=== PATIENT | male | born 1935 | race Caucasian/White ===

== ENCOUNTER 2019-12-03 15:21 | Emergency (ER) | payer OTHER ==
--- OUTSIDE RECORDS SUMMARY | 2019-12-03 15:33 | XMS REPORT | Clinical Summary ---
:1935 Author Organization [facility] Address [address] [place] [address] Care Team Providers Name Role Phone DAURTE Quezada Primary Care Provider Allergies No Known Allergies Medications Medication Sig Dispensed Refills Start Date End Date Status levothyroxine Take 50 mcg 0 Acti ve (SYNTHROID, by mouth. LEVOXYL) 50 mcg tablet losartan-hydrochlor Take 1 0 Active othiazide (HYZAAR) tablet by 100-25 mg per mouth. tablet escitalopram Take 20 mg 0 Active (LEXAPRO) 20 MG by mouth. tablet simvastatin (ZOCOR) Take 40 mg 0 Active 40 MG tablet by mouth. saw palmetto fruit Take by 0 A ctive 450 mg capsule mouth. loteprednol 0 11/12/2018 Active etabonate (LOTEMAX) 0.5 % drops,gel clopidogrel Take 75 mg 0 Discont inued (PLAVIX) 75 mg by mouth. 9 (Form ulary tablet change) cyanocobalamin, Take by 0 Disc ontinued vitamin B-12, 5,000 mouth. 9 (Formulary mcg change) tablet,disintegrati ng omega Take by 0 Discontinu ed 8-mpq-zqt-fish oil mouth. 9 ( Formulary 1,200 (144-216) mg c hange) capsule amLODIPine Take 2.5 mg 0 Discont inued (NORVASC) 2.5 mg by mouth 9 (Fo rmulary tablet daily. change) ibuprofen Take 200 mg 0 Disconti nued (ADVIL,MOTRIN) 200 by mouth 9 ( Formulary MG tablet every 6 change) (six) hours as needed for mild pain. Active Problems Problem Noted Date Heart murmur 02/03/2019 Aortic valve disorder 11/19/2017 Abdominal aortic aneurysm (AAA) without rupture 2017 Essential hypertension 11/19/2017 Encounters Date Type Specialty Care Team Description 10/26/2019 Travel 02/03/2019 Office Visit Cardiology Ambrocio Deluna MD [facility] (Primary Dx); Heart murmur; Aortic valve di sorder after 12/02/2018 Family History Relation Name Status Comments Father Mother Social History Tobacco Use Types Packs/Day Years Used Date Former Smoker Smokeless Tobacco: Never Used Alcohol Use Drinks/Week oz/Week Comments No Sex Assigned at Date Recorded Not on file Job Start Date Occupation Industry Not on file Not on file Not on file Travel History Travel Start Travel End No recent travel history available. Last Filed Vital Signs Vital Sign Reading Time Taken Comments Blood Pressure 143/68 02/03/2019 2:14 PM CDT Pulse 56 02/03/2019 2:14 PM CDT Temperature - - Respiratory Rate - - Oxygen Saturation - - Inhaled Oxygen Concentration - - Weight 82.6 kg (182 lb) 02/03/2019 2:14 PM CDT Height 170.2 cm (5' 7") 02/03/2019 2:14 PM CDT Body Mass Index 28.51 02/03/2019 2:14 PM CDT Plan of Treatment Date Type Specialty Care Team Description 02/02/2020 Office Visit Cardiology Ambrocio Deluna MD [address] [facility] [address] [place], [place] [address] [phone] Health Maintenance Due Date Last Done Comments SHINGLES VACCINES (#1) 09/16/1983 65+ PNEUMOCOCCAL VACCINE (1 of 2 - PCV13) 1998 INFLUENZA VACCINE 12/12/2019 Procedures Procedure Name Priority Date/Time Associated Diagnosis Comme nts TTE COMPLETE, WO Routine 02/09/2019 5:35 PM Essential Resu lts for this CONTRAST, W DOPPLER CDT hypertension procedure are in (07150) Aortic valve the results disorder section. ECG 12-LEAD Routine 02/03/2019 1:16 PM Heart murmur Results for this CDT procedure are i n the results section. after 12/02/2018 Results Echocardiogram complete w contrast and 3D if needed (02/09/2019 5:35 PM CDT) Specimen Narrative Performed At [facility] Echo cardiography Report Pat.Name: TYLOR RUIZ Pat.ID: [id number] .Date: 02/09/2019 Refer.MD: AMBROCIO DELUNA MD Exam Time: 2:21:00 PM Study Type:R outine Echo Height: 67in Weight: 182lb BSA: 1.94 m2 Ag e: 1935,83Y Sex: MALE BP: 143/68 HR: 50 bpm Sonogrphr: DANIELE Minor FASE Pat. Stat.:Outpatient Room: [place] Study Status:Final Echo Event ID:[id number] Order ID: [id number] Reason for Study:Aortic Stenosis History / Clinical:Unspecified HTN w/hea rt involve Procedures: 2D Echo, Colorflow Doppler Race: C SUMMARY: Mild aortic valve stenosis. FINDINGS: LV: LV size is normal. LV EF is normal. Overall wall motion is normal. Estimated EF is 60-64%. RV: RV size is normal. RV systo lic function is normal. LA: LA volume is moderately enl arged. RA: RA size is normal. AO: Aortic root diameter is nor mal. TOAN: No pericardial effusion. AV: Moderate thickening and jefry cification of AV leaflets. Mild aortic valve stenosis. MV: Mild mitral annular calcifi cation. PV: No structural PV abnormalit ies noted. TV: No structural TV abnormalit ies noted. A trace of tricuspid regurgitation Mcguire: Diastolic dysfunction Grade II (Moderate): Impaired relaxation with elevate d LV filling pressures. Other: Estimated PA systolic pressu re is 30-35 mmHg, assuming a mean RAP of 5 mmHg. MEASUREMENTS: 2D Parasternal [place] Ao An 1.7 cm LVPWd 0.9 cm Ao Rtd 3.5 cm Index 1.8 cm/m2 LA Ds 4.1 cm IVSd 1.3 cm RWT 0.4 LVIDd 4.6 cm Index 2.3 cm/m2 LV Mass 175.3 g (122-17 4) LVIDs 2.5 cm LVOT 2 cm LV%fs 45.1 % Left Ventricle LVM Index 90.4 g/m LA Sng Plane LA Area 23 cm (8.8-23.4) LA Vol 74.6 ml Index 38.4 ml/m2 LA LngAx 6.4 cm LVOT LVOT Area 3 cm DOPPLER AV Forward Flow AV pkVel 200.5 cm/s (100-170) AV AC/ET 0.1 AV mnVel 130.7 cm/s AV TVI 43.7 cm AV pkPG 16.1 mmHg AVpkAcRt 27211.4 cm/s AV Mean G 8.2 mmHg AV AC 29 msec (83-118) AV ET 335 msec Signed 02/10/2019 11:01 PM Sussy Waite M.D. Procedure Note Interface, Radiology Results In - 2018 11:01 PM CDT [facility] Echocardiography Report Pat.Name: TYLOR RUIZ Pat.I D: [id number] St.Date: 02/09/2019 Refer .MD: AMBROCIO DELUNA MD Exam Time: 2:21:00 PM Study Type:Routine Echo Height: 67in Weigh t: 182lb BSA: 1.94 m2 Age: 3 1935,83Y Sex: MALE BP: 143/68 HR: 50 bpm Sonogrphr: DANIELE Minor FASE Pat. Stat.:Outpatient Room: [place] Study Status:Final Echo Event ID:[id number] Order ID: [id number] Reason for Study:Aortic Stenosis History / Clinical:Unspecified HTN w/hea rt involve Procedures: 2D Echo, Colorflow Doppler Race: C SUMMARY: Mild aortic valve stenosis. FINDINGS: LV: LV size is normal. LV EF is no rmal. Overall wall motion is normal. Estimated EF is 60-64 %. RV: RV size is normal. RV systolic function is normal. LA: LA volume is moderately enlarg ed. RA: RA size is normal. AO: Aortic root diameter is normal . TOAN: No pericardial effusion. AV: Moderate thickening and calcif ication of AV leaflets. Mild aortic valve stenosis. MV: Mild mitral annular calcificat ion. PV: No structural PV abnormalities noted. TV: No structural TV abnormalities noted. A trace of tricuspid regurgitation Mcguire: Diastolic dysfunction Grade II (Moderate): Impaired relaxation with elevated LV f illing pressures. Other: Estimated PA systolic pressure is 30-35 mmHg, assuming a mean RAP of 5 mmHg. MEASUREMENTS: 2D Parasternal [place] Ao An 1.7 cm LVPW d 0.9 cm Ao Rtd 3.5 cm Inde x 1.8 cm/m2 LA Ds 4.1 cm IVSd 1.3 cm RWT 0.4 LVIDd 4.6 cm Inde x 2.3 cm/m2 LV Mass 175.3 g (122-174) LVIDs 2.5 cm LVOT 2 cm LV%fs 45.1 % Left Ventricle LVM Index 90.4 g/m LA Sng Plane LA Area 23 cm (8.8-23.4) L A Vol 74.6 ml Index 38.4 ml/m2 LA LngAx 6.4 cm LVOT LVOT Area 3 cm DOPPLER AV Forward Flow AV pkVel 200.5 cm/s (100-170) AV AC/ET 0.1 AV mnVel 130.7 cm/s AV T 43.7 cm AV pkPG 16.1 mmHg AVpk AcRt 88309.4 cm/s AV Mean G 8.2 mmHg AV A C 29 msec (83-118) AV ET 335 msec Signed 02/10/2019 11:01 PM Sussy Waite M.D. Performing Organization Address [facility] Phone Number [facility] [address] [place] [address] ECG 12 lead (02/03/2019 1:16 PM CDT) Pathologist Sig nature Ventricular rate 56 [facility] Atrial rate 56 [facility] ME interval 184 [facility] QRSD interval 162 [facility] QT interval 474 [facility] QTC interval 457 [facility] P axis 1 65 [facility] QRS axis 1 269 [facility] T wave axis 59 [facility] EKG impression Sinus bradycardia-Right [facility] bundle branch block-Abnormal ECG-In automated comparison with ECG of 19-NOV-2017 13:42,-T wave inversion now evident in Anterior leads- Specimen Narrative Performed At This result has an attachment that is no t available. Performing Organization Address [facility] Phone Number [facility] [address] [place] [address] after 12/02/2018 Insurance Payer Benefit Plan / Subscriber ID Effective Dates Phone Addre ss Type Group MEDICARE MEDICARE PART A xxxxxxxxxxx 1998-Present [facility] [place] [place] Medicare AND B Advance Directives For more information, please contact: [phone] Type Date Recorded Patient Surveillance Investigator Explanati on Advance Directives, Living Will and Medical Power of Office Support Clerk
--- OUTSIDE RECORDS SUMMARY | 2019-12-03 15:35 | XMS REPORT | Clinical Summary ---
:1935 Author Organization [facility] Address [address] [place] [address] Care Team Providers Name Role Phone Unavailable Primary Care Provider Unavailable Allergies No Known Allergies Medications Medication Sig Dispensed Refills Start End Date Status Date levothyroxine Take 25 mcg 0 Acti ve (SYNTHROID, LEVOTHROID) by mouth 25 MCG tablet Every morning on an empty stomach. escitalopram oxalate Take 20 mg by 0 Active (LEXAPRO) 20 MG tablet mouth daily. losartan (COZAAR) 100 MG Take 100 mg 0 Active tablet by mouth daily. clopidogreL (PLAVIX) 75 Take 75 mg by 0 Active mg tablet mouth daily. amLODIPine (NORVASC) 10 Take 1 tablet 90 tablet 0 Active MG tablet (10 mg total) 0 21 by mouth daily. albuterol HFA (VENTOLIN Inhale 1 puff 1 Inhaler 3 Active HFA) 90 mcg/actuation by mouth via 0 21 inhaler inhaler every 6 (six) hours as needed for Wheezing. fluticasone Inhale 2 1 Inhaler 12 11/05/19 Active propion-salmeteroL puffs by 0 21 (ADVAIR HFA) 45-21 mouth via mcg/actuation inhaler inhaler 2 (two) times daily. sodium chloride 1 gram Take 1 tablet 60 tablet 0 Active tablet (1 g total) 0 21 by mouth 2 (two) times daily with breakfast and dinner. hydroCHLOROthiazide Take 25 mg by 0 Discontinued (HYDRODIURIL) 25 MG mouth daily. 20 tablet traMADoL (ULTRAM) 50 mg Take 1 tablet 30 tablet 0 tablet (50 mg total) 0 20 by mouth every 6 (six) hours as needed for up to 10 days. Max Daily Amount: 200 mg HYDROcodone-acetaminophe Take 1 tablet 30 tablet 0 0 11/29/19 n (NORCO 10-325) 10-325 by mouth 0 20 mg per every 6 (six) tabletIndications: pain, hours as cancer pain needed for Pain for up to 10 days. 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 Encounters Date Type Specialty Care Team Description 11/19/2019 Orders Only Internal Medicine Pierre Mcgarry MD 11/03/2019 Anesthesia Event Hollis Celestin MD 11/03/2019 Surgery Keo Hodges THORACENTESIS MD Adrian 11/02/2019 Orders Only General Internal Medicine 10/31/2019 Travel 10/30/2019 - Hospital Encounter General Internal Athreya, Lung cancer metastatic to bone (HCC); 11/05/2019 Medicine Alonso Pneumonia due t o infectious organism, unspecified laterality, unspecified part of lung; MD Linh Leukocytosis, unspecified type; Carlee, Yajimmie Hyponatremia ; D 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); Pierre Mcgarry, Adenocarcino ma of lung, stage 4, unspecified laterality (HCC) MD Floyd, Sabiha Ballard MD after 12/02/2018 Immunizations Name Dates Previously Given Next Due Pneumococcal Conjugate (Prevnar) 13-Valent 11/01/2019 Family History Medical History Relation Name Comments Prostate cancer Father Liver cancer Mother Relation Name Status Comments Father Mother Social History Tobacco Use Types Packs/Day Years Used Date Former Smoker Quit: 10/29/18 70 Smokeless Tobacco: Never Used Alcohol Use Drinks/Week oz/Week Comments No Alcohol Habits Answer Date Recorded How often do you have a drink containing alcohol? Never 10/30/2019 How many drinks containing alcohol do you have on a typical Not asked day when you are drinking? How often do you have six or more drinks on one occasion? No t asked Sex Assigned at Date Recorded Not on file Job Start Date Occupation Industry Not on file Not on file Not on file Travel History Travel Start Travel End No recent travel history available. Last Filed Vital Signs Vital Sign Reading Time Taken Blood Pressure 196/81 11/05/2019 3:14 PM CDT Pulse 75 11/05/2019 3:14 PM CDT Temperature 36.5 C (97.7 F) 11/05/2019 3:14 PM CDT Respiratory Rate 18 11/05/2019 3:14 PM CDT Oxygen Saturation 93% 11/05/2019 3:14 PM CDT Inhaled Oxygen Concentration 21% 11/05/2019 7:46 AM CDT Weight 76.1 kg (167 lb 11.2 oz) 10/30/2019 9:4 1 PM CDT Height 170.2 cm (5' 7") 10/30/2019 9:41 PM CDT Body Mass Index 26.27 10/30/2019 9:41 PM CDT Plan of Treatment Health Maintenance Due Date Last Done Comments MEDICARE ANNUAL WELLNESS (YEAR 2 or 09/12/1999 FIRST YEAR if no IPPE) PNEUMOCOCCAL 65+ HIGH/HIGHEST RISK (2 12/27/2019 11/01/2019 of 2 - PPSV23) INFLUENZA VACCINE (#1) 2020 04/09/2016, 03/02/2015, 03/03/2012 Procedures Procedure Name Priority Date/Time Associated Comments Diagnosis RHYTHM STRIP - SCAN 11/12/2019 9:43 AM CDT RHYTHM STRIP - SCAN 11/12/2019 9:42 AM CDT RHYTHM STRIP - SCAN 11/06/2019 10:42 AM CDT TRANSFUSION SERVICE 11/05/2019 6:03 REPORT - SCAN PM CDT CBC W/PLT COUNT & AUTO Routine 11/05/2019 5:25 R esults for this DIFFERENTIAL AM CDT procedure are i n the results section. PHOSPHORUS Routine 11/05/2019 5:25 Results for this AM CDT procedure are i n the results section. MAGNESIUM Routine 11/05/2019 5:25 Results for this AM CDT procedure are i n the results section. CALCIUM, IONIZED Routine 11/05/2019 5:25 Results for this AM CDT procedure are i n the results section. B-TYPE NATRIURETIC Routine 11/05/2019 5:25 Resul ts for this FACTOR (BNP) AM CDT procedure are i n the results section. CBC W/PLT COUNT & AUTO Routine 11/05/2019 5:25 R esults for this DIFFERENTIAL AM CDT procedure are i n the results section. BASIC METABOLIC PANEL Routine 11/05/2019 5:25 Re sults for this (7) AM CDT procedure are i n the results section. ABORH, MANUAL STAT 11/04/2019 8:56 Results fo r this AM CDT procedure are i n the results section. CBC W/PLT COUNT & AUTO Routine 11/04/2019 5:57 R esults for this DIFFERENTIAL AM CDT procedure are i n the results section. TYPE AND SCREEN, Routine 11/04/2019 5:57 Results for this AUTOMATED AM CDT procedure are i n the results section. PHOSPHORUS Routine 11/04/2019 5:57 Results for this AM CDT procedure are i n the results section. MAGNESIUM Routine 11/04/2019 5:57 Results for this AM CDT procedure are i n the results section. COMPREHENSIVE Routine 11/04/2019 5:57 Results fo r this METABOLIC PANEL AM CDT procedure ar e in the results section. CALCIUM, IONIZED Routine 11/04/2019 5:57 Results for this AM CDT procedure are i n the results section. CBC W/PLT COUNT & AUTO Routine 11/04/2019 5:57 R esults for this DIFFERENTIAL AM CDT procedure are i n the results section. MR CERVICAL SPINE WITH Routine 11/03/2019 9:25 R esults for this & WITHOUT IV CONTRAST PM CDT proced ure are in the results section. MR BRAIN WITH IV Routine 11/03/2019 9:25 Results for this CONTRAST PM CDT procedure are i n the results section. REPORT OF PROCEDURE - 11/03/2019 2:51 ENDOSCOPY URL PM CDT REPORT OF PROCEDURE - 11/03/2019 2:49 ENDOSCOPY URL PM CDT EBUS FNA REQUEST Routine 11/03/2019 2:24 Results for this PM CDT procedure are i n the results section. FINE NEEDLE ASPIRATE AP Routine 11/03/2019 2:24 Res ults for this BY EBUS PM CDT procedure are i n the results section. EBUS FNA REQUEST Routine 11/03/2019 2:12 Results for this PM CDT procedure are i n the results section. FINE NEEDLE ASPIRATE AP Routine 11/03/2019 2:12 Res ults for this BY EBUS PM CDT procedure are i n the results section. EBUS FNA REQUEST Routine 11/03/2019 2:04 Results for this PM CDT procedure are i n the results section. FINE NEEDLE ASPIRATE AP Routine 11/03/2019 2:04 Res ults for this BY EBUS PM CDT procedure are i n the results section. LACTATE DEHYDROGENASE STAT 11/03/2019 2:03 Re sults for this (LDH) PM CDT procedure are i n the results section. EBUS FNA REQUEST Routine 11/03/2019 2:01 Results for this PM CDT procedure are i n the results section. FINE NEEDLE ASPIRATE AP Routine 11/03/2019 2:01 Res ults for this BY EBUS PM CDT procedure are i n the results section. EBUS FNA REQUEST Routine 11/03/2019 1:59 Results for this PM CDT procedure are i n the results section. FINE NEEDLE ASPIRATE AP Routine 11/03/2019 1:59 Res ults for this BY EBUS PM CDT procedure are i n the results section. AFB CULTURE + SMEAR Routine 11/03/2019 1:40 (NON-SPUTUM) PM CDT BODY FLUID CULTURE + Routine 11/03/2019 1:40 Res ults for this GRAM STAIN PM CDT procedure are i n the results section. FUNGUS CULTURE + Routine 11/03/2019 1:40 SMEAR PM CDT PROTEIN, TOTAL, Routine 11/03/2019 1:40 Results for this PLEURAL FLUID PM CDT procedure are in the results section. LACTATE DEHYDROGENASE Routine 11/03/2019 1:40 Re sults for this (LD), PLEURAL FLUID PM CDT procedur e are in the results section. GLUCOSE PLEURAL FLUID Routine 11/03/2019 1:40 Re sults for this PM CDT procedure are i n the results section. ALBUMIN PLEURAL FLUID Routine 11/03/2019 1:40 Re sults for this PM CDT procedure are i n the results section. BODY FLUID CRYSTALS AP Routine 11/03/2019 1:40 Resu lts for this PM CDT procedure are i n the results section. BODY FLUID CELL COUNT Routine 11/03/2019 1:40 Re sults for this WITH DIFFERENTIAL PM CDT procedure are in the results section. CYTOLOGY REQUEST Routine 11/03/2019 1:39 Results for this PM CDT procedure are i n the results section. CYTOLOGY AP Routine 11/03/2019 1:39 Results for this PM CDT procedure are i n the results section. BRONCHOSCOPY,ENDOBRONC 11/03/2019 12:00 Lung mass HIAL ULTRASOUND (EBUS) PM CDT TRANSTRACH/ TRANSBRONCH SAMPLING THORACENTESIS 11/03/2019 12:00 Lung mass PM CDT CBC W/PLT COUNT & AUTO Routine 11/03/2019 3:48 R esults for this DIFFERENTIAL AM CDT procedure are i n the results section. CBC W/PLT COUNT & AUTO Routine 11/03/2019 3:48 R esults for this DIFFERENTIAL AM CDT procedure are i n the results section. APTT STAT 11/03/2019 3:47 Results for this AM CDT procedure are i n the results section. PROTHROMBIN TIME/INR STAT 11/03/2019 3:47 Res ults for this AM CDT procedure are i n the results section. BASIC METABOLIC PANEL Routine 11/03/2019 3:47 Re sults for this (7) AM CDT procedure are i n the results section. ECG 12-LEAD Routine 11/02/2019 8:26 AM CDT Procedure Note - Interface, External Ris In - 11/02/2019 9:26 AM CDT Ventricular Rate 68 BPM Atrial Rate 68 BPM P-R Interval 202 ms QRS Duration 166 ms Q-T Interval 452 ms QTC Calculation(Bazett) 480 ms P Dixon 79 degrees R Dixon -65 degrees T Dixon 24 degrees Undetermined rhythm Left axis deviation Right bundle branch block Abnormal ECG When compared with ECG of 08:26, Current undetermined rhythm precludes rhythm comparison, needs review ECG 12-LEAD Routine 11/02/2019 8:26 AM CDT Resu lts for this procedure are in the results section . ECG 12-LEAD Routine 11/02/2019 8:26 AM CDT Procedure Note - Interface, External Ris In - 11/02/2019 9:25 AM CDT Ventricular Rate 68 BPM Atrial Rate 68 BPM P-R Interval 196 ms QRS Duration 170 ms Q-T Interval 454 ms QTC Calculation(Bazett) 482 ms P Dixon 118 degrees R Dixon -64 degrees T Dixon 28 degrees Normal sinus rhythm Left axis deviation Right bundle branch block Abnormal ECG No previous ECGs available ECG 12-LEAD Routine 11/02/2019 8:26 AM CDT Resu lts for this procedure are i n the results section . CBC (HEMOGRAM ONLY) Routine 11/02/2019 5:25 AM CDT Results for this procedure are i n the results section . MAGNESIUM Routine 11/02/2019 5:25 AM CDT Resu lts for this procedure are i n the results section . BASIC METABOLIC PANEL (7) Routine 11/02/2019 5:25 AM CDT Results for this procedure are i n the results section . SPUTUM CULTURE + GRAM STAIN Routine 11/01/2019 2:21 PM CDT Results for this procedure are i n the results section . SODIUM Routine 11/01/2019 1:23 PM CDT Resu lts for this procedure are i n the results section . TSH/FREE T4 IF INDICATED Routine 11/01/2019 5:11 AM CDT Results for this procedure are i n the results section . CORTISOL Routine 11/01/2019 5:11 AM CDT Resu lts for this procedure are i n the results section . URIC ACID Routine 11/01/2019 5:11 AM CDT Resu lts for this procedure are i n the results section . B-TYPE NATRIURETIC FACTOR Routine 11/01/2019 5:11 AM CDT Results for this (BNP) procedure are i n the results section . CBC (HEMOGRAM ONLY) Routine 11/01/2019 5:11 AM CDT Results for this procedure are i n the results section . MAGNESIUM Routine 11/01/2019 5:11 AM CDT Resu lts for this procedure are i n the results section . BASIC METABOLIC PANEL (7) Routine 11/01/2019 5:11 AM CDT Results for this procedure are i n the results section . CT ABDOMEN/PELVIS WITH IV Routine 10/31/2019 7:32 PM CDT Results for this CONTRAST procedure are i n the results section . MR BRAIN WITHOUT IV Routine 10/31/2019 5:46 PM CDT Results for this CONTRAST procedure are i n the results section . URINALYSIS MICROSCOPIC Routine 10/31/2019 4:11 PM CDT Results for this procedure are i n the results section . SODIUM, RANDOM URINE Routine 10/31/2019 4:11 PM CDT Results for this procedure are i n the results section . OSMOLALITY, URINE Routine 10/31/2019 4:11 PM CDT Results for this procedure are i n the results section . URINALYSIS WITH MICROSCOPIC Routine 10/31/2019 4:11 PM CDT Results for this IF INDICATED procedure are i n the results section . SARS-COV2/RT-PCR ([facility] & Routine 10/31/2019 5:30 AM CDT Results for this REF LABS) procedure are i n the results section . CBC W/PLT COUNT & AUTO Routine 10/31/2019 5:27 AM CDT Results for this DIFFERENTIAL procedure are i n the results section . OSMOLALITY, SERUM Routine 10/31/2019 5:27 AM CDT Results for this procedure are i n the results section . CBC (HEMOGRAM ONLY) Routine 10/31/2019 5:27 AM CDT Results for this procedure are i n the results section . MAGNESIUM Routine 10/31/2019 5:27 AM CDT Resu lts for this procedure are i n the results section . PROTHROMBIN TIME/INR Routine 10/31/2019 5:27 AM CDT Results for this procedure are i n the results section . CBC W/PLT COUNT & AUTO Routine 10/31/2019 5:27 AM CDT Results for this DIFFERENTIAL procedure are i n the results section . BASIC METABOLIC PANEL (7) Routine 10/31/2019 5:27 AM CDT Results for this procedure are i n the results section . after 12/02/2018 Results RHYTHM STRIP - SCAN (11/12/2019 9:43 AM CDT)Only the most recent of3 results within the time period is included. Narrative Performed At This result has an attachment that is no t available. TRANSFUSION SERVICE REPORT - SCAN (11/05/2019 6:03 PM CDT) Narrative Performed At This result has an attachment that is no t available. Calcium, Ionized (11/05/2019 5:25 AM CDT)Only the most recent of2 resultswithin the time period is included. Calcium, Ion 1.07 (L) 1.12 - 1.27 mmol/L [facility] pH, Blood 7.45 [facility] Specimen Blood Performing Organization Address City/State/Zipcode Phone Number [facility] [address] [place] [address] CENTER CBC with platelet count + automated diff (11/05/2019 5:25 AM CDT)Only the most recent of4 resultswithin the time period is included. WBC 8.7 3.5 - 10.5 K/L [facility] RBC 3.71 (L) 4.63 - 6.08 M/L [facility] Hemoglobin 10.5 (L) 13.7 - 17.5 GM/DL [facility] Hematocrit 32.4 (L) 40.1 - 51.0 % [facility] MCV 87.3 79.0 - 92.2 fL [facility] HE [facility] MCH 28.3 25.7 - 32.2 pg [facility] MCHC 32.4 32.3 - 36.5 GM/DL [facility] RDW 13.5 11.6 - 14.4 % [facility] Platelets 185 150 - 450 K/CU MM [facility] MPV 8.9 (L) 9.4 - 12.4 fL [facility] nRBC 0 0 - 0 /100 WBC [facility] % Neutros 71 % [facility] % Lymphs 17 % [facility] % Monos 9 % [facility] % Eos 2 % [facility] % Baso 1 % [facility] # Neutros 6.21 (H) 1.78 - 5.38 K/L [facility] # Lymphs 1.47 1.32 - 3.57 K/L [facility] # Monos 0.78 0.30 - 0.82 K/L [facility] # Eos 0.18 0.04 - 0.54 K/L [facility] # Baso 0.04 0.01 - 0.08 K/L [facility] Immature Granulocytes-Relative 0 0 - 1 % C [facility] Specimen Blood Performing Organization Address City/State/Zipcode Phone Number [facility] [address] [place] [address] CENTER Phosphorus (11/05/2019 5:25 AM CDT)Only the most recent of2 resultswithin the time period is included. Phosphorus 2.5 2.3 - 4.7 mg/dL [facility] Specimen Blood Narrative Performed At Admissions Manager ID - LESLI Malone [facility] Performing Organization Address [facility]/Zipcode Phone Number [address] [address] CENTER B-type Natriuretic Factor (BNP) (11/05/2019 5:25 AM CDT)Only the most recent of 2 resultswithin the time period is included. BNP 31 0 - 100 pg/mL [facility] Specimen Blood Narrative Performed At Admissions Manager ID - LESLI Malone [facility] Performing Organization Address [facility] Phone Number [address] [address] CENTER Magnesium (11/05/2019 5:25 AM CDT)Only the most recent of5 resultswithin the time period is included. Magnesium 2.0 1.6 - 2.6 mg/dL [facility] Specimen Blood Narrative Performed At Admissions Manager ID - LESLI Malone [facility] Performing Organization Address City/[facility] Cent[facility]ode Phone Number [address] [address] COS COB Basic Metabolic Panel (11/05/2019 5:25 AM CDT)Only the most recent of5 results within the time period is included. Sodium 131 (L) 136 - 145 meq/L [facility] Potassium 4.0 3.5 - 5.1 meq/L [facility] Chloride 97 (L) 98 - 107 meq/L [facility] CO2 27 22 - 29 meq/L [facility] BUN 6 (L) 7 - 21 mg/dL [facility] Creatinine 0.67 0.57 - 1.25 mg/dL [facility] Glucose 83 70 - 105 mg/dL [facility] Calcium 8.6 8.4 - 10.2 mg/dL [facility] EGFR 112Comment: ESTIMATED GFR IS mL/min/1.73 sq m [facility] NOT ACCURATE CREATININE MS DICAL COS COB CLEARANCE IN PREDICTING GLOMERULAR FILTRATION RATE. ESTIMATED GFR IS NOT APPLICABLE FOR DIALYSIS PATIENTS. Specimen Blood Narrative Performed At Admissions Manager ID - PIAYA L [facility] CENTER Performing Organization Address City/[facility] Centercode Phone Number [address] [address] CENTER ABORH, manual (11/04/2019 8:56 AM CDT) ABO Grouping A [facility] Rh Factor NEG [facility] Specimen Blood Performing Organization Address City/[facility]/Zipcode Phone Number [address] [address] Type and screen, automated (11/04/2019 5:57 AM CDT) ABO/RH AUTOMATED (BEAKER) A NEGATIVE [facility] Ab Scrn NEGATIVE [facility] Specimen Blood Performing Organization Address City/[facility]/Zipcode Phone Number [address] [address] Comprehensive metabolic panel (11/04/2019 5:57 AM CDT) Protein, Total 6.6 6.0 - 8.3 gm/dL [facility] Albumin 3.3 (L) 3.5 - 5.0 g/dL [facility] Alkaline Phosphatase 94 40 - 150 U/L [facility] Total Bilirubin 0.5 0.2 - 1.2 mg/dL [facility] Sodium 129 (L) 136 - 145 meq/L [facility] Potassium 3.5 3.5 - 5.1 meq/L [facility] Chloride 97 (L) 98 - 107 meq/L [facility] CO2 23 22 - 29 meq/L [facility] BUN 9 7 - 21 mg/dL [facility] Creatinine 0.68 0.57 - 1.25 mg/dL [facility] Glucose 85 70 - 105 mg/dL [facility] Calcium 8.1 (L) 8.4 - 10.2 mg/dL [facility] AST 16 5 - 34 U/L [facility] ALT 9 6 - 55 U/L [facility] EGFR 111Comment: ESTIMATED mL/min/1.73 sq m [facility] GFR IS NOT ACCURATE [facility] CREATININE CLEARANCE IN PREDICTING GLOMERULAR FILTRATION RATE. ESTIMATED GFR IS NOT APPLICABLE FOR DIALYSIS PATIENTS. Specimen Blood Narrative Performed At Admissions Manager ID - JERSON B [facility] CENTER Performing Organization Address City/State/Zipcode Phone Number [facility] [address] [place] [address] CENTER MR cervical spine without & with IV contrast (11/03/2019 9:25 PM CDT) Specimen Narrative Performed At FINAL REPORT [employer] MR, SPINE, CERVICAL, WITH \\T\\ WITHOUT CO NTRAST INDICATION: Neck pain, abnormal neuro ex am TECHNIQUE: Multiplanar, multisequence MR imaging of the cervical spine was performed with and without int ravenous contrast. COMPARISON: None. FINDINGS: Cord: Grossly preserved caliber. Focal h yperintensity on T2-weighted images at the C5 level. Osseous structures: Normal height and si gnal intensity of the cervical vertebrae. There is grade 1 ret rolisthesis of C5 on C6. Degenerative facet changes are present a t all levels. The craniocervical junction is normal. No ab normal postcontrast enhancement. Discs: Disc desiccation is present at mu ltiple levels. Findings by level: C2/C3: Severe left foraminal stenosis. T he right neural foramen is patent. Mild canal narrowing. C3/C4: Degenerative disc disease creatin g moderate canal narrowing. Moderate bilateral foraminal stenosis. C4/C5: Asymmetric endplate changes in th e right paracentral region. Moderate left foraminal stenosis. C5/C6: Moderate canal narrowing. Severe bilateral foraminal stenosis. C6/C7: No canal or foraminal narrowing. C7/T1: No canal or foraminal narrowing. Soft tissues: Paraspinal soft tissues ar e unremarkable. IMPRESSION: Focal signal abnormality at the C5 verte bral body concerning for early myelopathic change. Degenerative changes throughout the cerv ical spine. Severe left foraminal stenosis is present at C2-3. Severe bilateral foraminal stenosis is p resent at C5-6 where there is grade 1 retrolisthesis of C5 on C6. Signed: JR Iverson Robert MD Report Verified Date/Time:11/03/2019 22:26:01 Reading Location: [facility] [address] [place] [address] Room Procedure Note Interface, External Ris In - 11/03/2019 10:29 PM CDT FINAL REPORT MR, SPINE, CERVICAL, WITH \\T\\ WITHOUT CO NTRAST INDICATION: Neck pain, abnormal neuro ex am TECHNIQUE: Multiplanar, multisequence MR imaging of the cervical spine was performed with and without int ravenous contrast. COMPARISON: None. FINDINGS: Cord: Grossly preserved caliber. Focal h yperintensity on T2-weighted images at the C5 level. Osseous structures: Normal height and si gnal intensity of the cervical vertebrae. There is grade 1 ret rolisthesis of C5 on C6. Degenerative facet changes are present a t all levels. The craniocervical junction is normal. No ab normal postcontrast enhancement. Discs: Disc desiccation is present at mu ltiple levels. Findings by level: C2/C3: Severe left foraminal stenosis. T he right neural foramen is patent. Mild canal narrowing. C3/C4: Degenerative disc disease creatin g moderate canal narrowing. Moderate bilateral foraminal stenosis. C4/C5: Asymmetric endplate changes in th e right paracentral region. Moderate left foraminal stenosis. C5/C6: Moderate canal narrowing. Severe bilateral foraminal stenosis. C6/C7: No canal or foraminal narrowing. C7/T1: No canal or foraminal narrowing. Soft tissues: Paraspinal soft tissues ar e unremarkable. IMPRESSION: Focal signal abnormality at the C5 verte bral body concerning for early myelopathic change. Degenerative changes throughout the cerv ical spine. Severe left foraminal stenosis is present at C2-3. Severe bilateral foraminal stenosis is p resent at C5-6 where there is grade 1 retrolisthesis of C5 on C6. Signed: JR Iverson Robert MD Report Verified Date/Time: 11/03/2019 2 2:26:01 Reading Location: [address] Performing Organization Address City/State/Zipcode Phone Number Exogenesis MR brain with IV contrast (11/03/2019 9:25 PM CDT) Specimen Narrative Performed At FINAL REPORT Exogenesis MR, BRAIN WITH IV CONTRAST INDICATION: Headache, acute, normal neur o exam TECHNIQUE: Multiplanar, multisequence MR imaging of the brain was obtained before and after uneventful adm inistration of gadolinium contrast. COMPARISON: October 31, 2019 FINDINGS: Limited by motion artifact. In comparison to the prior examination, and in the presence of postcontrast imaging, no metastatic dise ase is identified in the brain parenchyma. There is no midline sh ift or hydrocephalus. IMPRESSION: No abnormal postcontrast enhancement is identified. Signed: JR Iverson Robert MD Report Verified Date/Time:11/03/2019 21:26:45 Reading Location: [address] Room Procedure Note Interface, External Ris In - 11/03/2019 9:29 PM CDT FINAL REPORT MR, BRAIN WITH IV CONTRAST INDICATION: Headache, acute, normal neur o exam TECHNIQUE: Multiplanar, multisequence MR imaging of the brain was obtained before and after uneventful adm inistration of gadolinium contrast. COMPARISON: October 31, 2019 FINDINGS: Limited by motion artifact. In comparison to the prior examination, and in the presence of postcontrast imaging, no metastatic dise ase is identified in the brain parenchyma. There is no midline sh ift or hydrocephalus. IMPRESSION: No abnormal postcontrast enhancement is identified. Signed: JR Iverson Robert MD Report Verified Date/Time: 11/03/2019 2 1:26:45 Reading Location: [address] Performing Organization Address City/[facility] Centercode Phone Number GE RIS REPORT OF PROCEDURE - ENDOSCOPY URL (11/03/2019 2:51 PM CDT) Narrative Performed At This result has an attachment that is no t available. REPORT OF PROCEDURE - ENDOSCOPY URL (11/03/2019 2:49 PM CDT) Narrative Performed At This result has an attachment that is no t available. EBUS FNA REQUEST (11/03/2019 2:24 PM CDT)Only the most recent of5 resultswithin the time period is included. Cytology See Separate Report [facility] Specimen EBUS Fine Needle Aspirate - Lymph Node, Lower Paratracheal, Left, Station 4L Performing Organization Address City/[facility] Centercomn Phone Number [address] [address] CENTER Fine Needle Aspiration by EBUS (11/03/2019 2:24 PM CDT)Only the most recent of5 resultswithin the time period is included. Case Report Medical Cytology Report Case: [id number] [facility] Authorizing Provider:Keo Rao MDCollected: 11/03/2019 02:24 PM [facility] Ordering Location: [facility] PERIOPERATIVE Received:11/03/2019 04:00 PM SERVICES Pathologist: Barry Metzger MD Specimen:Lymph Node, Lower Paratracheal, Left, Station 4L DIAGNOSIS LYMPH NODE, LOWER PARATRACHE AL, LEFT, STATION 4L EBUS FNA BY CLINICIAN (CYTOSPINS AND CELL BLOCK OF ASPIRATE): [facility] - POSITIVE FOR MALIGNANCY [facility] - POORLY DIFFERENTIATED ADENOCARCINOMA Signing Pathologist Direct Phone Line: COMMENT Based upon the immunohistoch emical findings on [id number], this is a primary lung adenocarcinoma. [facility] Please see cytopathology cases [id number], [id number], 1 556, 1557 and 1561 [facility] CPT Code(s) 99711, 48441 [facility] CLINICAL DATA Right pleural effusion, [facility] recently discovered lung cancer [facility] with suspected metastasis to bone SPECIMEN SOURCE LYMPH NODE, LOWER PARATRACHEAL, [facility] LEFT, STATION 4L EBUS FNA [facility] GROSS DESCRIPTION 35 mls in cytorich red; 2 cytospins, cell bloc k [facility] Collected: [id number] [facility] Received: [id number] SPECIAL STUDIES The interpretation of this c ase included the use of immunohistochemistry or special stains. [facility] Control Slides Examined: In -house known positive controls were evaluated along with the test tissue. These control slides run alongside of the patients sample show appropriate staining. Internal posit vijay and negative controls when available are sue luated Immunohistochemistry technic al testing was performed at [facility], Pathology Laboratory where it was developed and its performance characteristics were determined. It has not be en cleared or approved by [facility] U.S. Food and Drug Administration. The FDA has determined that such clearance or approval is not necessary. The test is used for clinical purposes. It should not be regarde d as investigational or for research. This laboratory is certified under the Clinical Laboratory Improvement Amendments of 1988 (CLIA-88) as qualified to perform high complexity clinical laboratory testing. Gross assessment was [facility] performed at Center, Department of [facility] Pathology, [address] [place] [address], [place] [address], Technical component was [facility] performed at [place], Department of [facility] MEDICA [facility] Pathology, [address] [place] [address], Professional component [facility] was performed at [place], Department of [facility] MEDIC AL [facility] [place] Pathology, [address] [place] [address], [place] [address], Specimen EBUS Fine Needle Aspirate - Lymph Node, Lower Paratracheal, Left, Station 4L Narrative Performed At This result has an attachment that is no t available. Performing Organization Address [facility]/Zipcode Phone Number [address] [address] [place] Lactate dehydrogenase (LDH) (11/03/2019 2:03 PM CDT) LDH 175 125 - 220 U/L [facility] Specimen Blood Narrative Performed At Admissions Manager ID - ANDREA Jin [facility] Performing Organization Address City/[facility]/Zipcode Phone Number [address] [address] [place] Body fluid culture + gram stain (11/03/2019 1:40 PM CDT) Result No growth [facility] Gram Stain Result <1+ WBCs [facility] Gram Stain Result No epithelial cells [facility] Gram Stain Result No organisms seen [facility] Specimen Body Fluid Performing Organization Address [facility] Centercode Phone Number [address] [address] [place] Protein, Total, Pleural Fluid (11/03/2019 1:40 PM CDT) PROTEIN, TOTAL, PLEURAL 4.5 See Note: g/dL [facility] Comment: INCORPORATED Reference Range: TRANSUDATE: < OR = 3.0 EXUDATE:>3.0 Specimen Body Fluid Narrative Performed At Performing Lab [facility] EZ [facility] [address] [address] [place] [address] Jefe Gtz MD, PhD, PRUDENCIO Performing Organization Address [facility] Phone Number [employer] [place] [address] INCORPORATED [address] [address] [employer] Lactate Dehydrogenase (LD), Pleural Fluid (11/03/2019 1:40 PM CDT) Lactate Dehydrogenase 203 See Note: U/L [facility] (LD), Pleural Fluid Comment: INCORPORATED Reference Range: TRANSUDATE:<113 EXUDATE: >113 Specimen Body Fluid Narrative Performed At Performing Lab [facility] [address] [address] [place] [address] Jefe Gtz MD, PhD, PRUDENCIO Performing Organization Address [facility] Number [employer] [place] [address] INCORPORATED [address] [facility] Glucose Pleural Fluid (11/03/2019 1:40 PM CDT) Glucose, Pleural Fluid 86 mg/dL [facility] Comment: INCORPORATED Reference range approximates that found in serum . Specimen Body Fluid Narrative Performed At Performing Lab [facility] [employer] [address] [address] [place] [address] Jefe Gtz MD, PhD, PRUDENCIO Performing Organization Address [facility] Number [facility] [place] [address] INCORPORATED [address] [address] Albumin Pleural Fluid (11/03/2019 1:40 PM CDT) Albumin, Pleural Fluid 2.4400 g/dL [facility] Comment: INCORPORATED Because of the wide range of Albumin levels seen in serous body fluids, results are best evaluated by using the serum-ef fusion albumin gradient (serum albumin result minus the serous body flui d albumin result) to differentiate whether the fluid is a transudate or an exudate. A gradient value of > 1.2 g/dL is seen in transu dates. A gradient value of < or = 1.2 g/dL is seen in e xudates. Specimen Body Fluid Narrative Performed At Performing Lab [facility] CUPS EZ [address] [address] [place] [address] I Tresa VARELA, PhD, PRUDENCIO Performing Organization Address [facility]/Zipcode Phone Number [facility], [place] [address] INCORPORATED [address] [facility] Body fluid crystals (11/03/2019 1:40 PM CDT) Body Fluid Crystals No crystals seen. [facility] Pathologist: Norma Mead MD [facility] (electronic signature) MEDICAL C ENTER Specimen Body Fluid Performing Organization Address [facility] Centercode Phone Number [address] [address] [place] Body fluid cell count with differential (11/03/2019 1:40 PM CDT) Appearance Slightly Hazy (A) Clear [facility] Color Yellow (A) Colorless, Straw [facility] RBCs 1,000 (H) <=1 /cu mm [facility] Adjusted WBC Count 535 (H) <=5 /cu mm [facility] Lining Cells 11 (H) <=1 /cu mm [facility] % Segs 9 % [facility] % Lymphs 63 % [facility] % Monos 15 % [facility] % Eos 13 % [facility] % Baso 0 % [facility] Container Body Fluid EDTA Tube [facility] Specimen Body Fluid Performing Organization Address [facility]/Zipcode Phone Number [address] [address] CENTER CYTOLOGY REQUEST (11/03/2019 1:39 PM CDT) Cytology See Separate Report [facility] Specimen Body Fluid Performing Organization Address City/State/Zipcode Phone Number [address] [phone] CENTER Cytology (11/03/2019 1:39 PM CDT) Case Report Medical Cytology Report Case: [id number] [facility] Authorizing Provider:Keo Rao MDCollected: 11/03/2019 01:39 PM [facility] Ordering Location: [facility] PERIOPERATIVE Received:11/03/2019 02:17 PM SERVICES Pathologist: Barry Metzger MD Specimen:Pleural, Right DIAGNOSIS RIGHT PLEURAL FLUID (CYTOSPINS AND CELL BLOCK): [facility] - POSITIVE FOR MALIGNANCY [facility] - POORLY DIFFERENTIATED ADENOCARCINOMA Signing Pathologist Direct Phone Line: COMMENT [facility]TH Please see cytopathology cases [id number], [id number], 1 556, 1561 and 1562 [facility] CPT Code(s) 65383, 11683 [facility]TH [facility] ER CLINICAL DATA Right pleural effusion, [facility] recently discovered lung [facility] cancer with suspected metastasis to bone SPECIMEN SOURCE RIGHT PLEURAL FLUID [facility] ER GROSS DESCRIPTION 2100 mls yellow fluid in 2 bottles; 4 cytospin s, cell block [facility] Collected: [id number] [facility] MEDICAL CE NTER Received: [id number] STATEMENT OF ADEQUACY Satisfactory [facility] ER Gross assessment was [facility] performed at [place], Department of [facility] Pathology, [address] [place] [address], Technical component was [facility] performed at [place], Department of [facility] Pathology, [address] [place] [address], Professional component was [facility] performed at [place], Department of [facility] Pathology, [address] [place] [address], Specimen Body Fluid Narrative Performed At This result has an attachment that is no t available. Performing Organization Address [facility] Centercode Phone Number [facility] [address] [place], [place] [phone] [facility] [place] aPTT (11/03/2019 3:47 AM CDT) PTT 37.4 (H) 22.5 - 36.0 seconds [facility] Specimen Blood Performing Organization Address [facility] Centercode Phone Number [facility] [address] [place] [address] [place] Prothrombin time/INR (11/03/2019 3:47 AM CDT)Only the most recent of2 results within the time period is included. Protime 14.9 (H) 11.9 - 14.2 seconds [facility] INR 1.2 <=5.9 [facility] Specimen Blood Narrative Performed At Effective 10/08/2018: PT Reference Range [facility] Change New: 11.9-14.2Previous: 11.7-14.7 RECOMMENDED COUMADIN/WARFARIN INR THERAPY RANGES STANDARD DOSE: 2.0-3.0Includes: PROPHYLAXIS for venous thrombosis, systemic embolization; TREATMENT for venous thrombosis and/or pulmonary embolus. HIGH RISK: Target INR is 2.5-3.5 for patients wiht mechanical heart valves. Performing Organization Address [facility] Centercomn Phone Number [facility] [address] [place] [address] [place] ECG 12 lead (11/02/2019 8:26 AM CDT)Only the most recent of2 resultswithin the time period is included. Specimen Narrative Performed At Ventricular Rate 68 BPM GE MUSE Atrial Rate 68 BPM P-R Interval 202 ms QRS Duration 166 ms Q-T Interval 452 ms QTC Calculation(Bazett) 480 ms P Dixon 79 degrees R Dixon -65 degrees T Dixon 24 degrees Normal sinus rhythm Left axis deviation Right bundle branch block Prolonged QT Abnormal ECG When compared with ECG of 02-NOV-2019 08 :26, No significant changes Confirmed by MD XU, JONY ([id number]) on 11/02/2019 1:10:44 PM Procedure Note Interface, External Ris In - 11/02/2019 1:10 PM CDT Ventricular Rate 68 BPM Atrial Rate 68 BPM P-R Interval 202 ms QRS Duration 166 ms Q-T Interval 452 ms QTC Calculation(Bazett) 480 ms P Dixon 79 degrees R Dixon -65 degrees T Dixon 24 degrees Normal sinus rhythm Left axis deviation Right bundle branch block Prolonged QT Abnormal ECG When compared with ECG of 02-NOV-2019 08 :26, No significant changes Confirmed by MD XU, JONY ([id number]) on 11/02/2019 1:10:44 PM Performing Organization Address [facility] Phone Number GE MUSE CBC (Hemogram only) (11/02/2019 5:25 AM CDT)Only the most recent of3 results within the time period is included. WBC 8.8 3.5 - 10.5 K/L [facility] RBC 3.56 (L) 4.63 - 6.08 M/L [facility] Hemoglobin 10.2 (L) 13.7 - 17.5 GM/DL [facility] Hematocrit 30.5 (L) 40.1 - 51.0 % [facility] MCV 85.7 79.0 - 92.2 fL [facility] MCH 28.7 25.7 - 32.2 pg [facility] MCHC 33.4 32.3 - 36.5 GM/DL [facility] RDW 13.1 11.6 - 14.4 % [facility] Platelets 195 150 - 450 K/CU MM [facility] MPV 8.9 (L) 9.4 - 12.4 fL [facility] nRBC 0 0 - 0 /100 WBC [facility] Specimen Blood Performing Organization Address [facility]/Zipcode Phone Number [address] [address] [place] Sputum Culture + Gram Stain (11/01/2019 2:21 PM CDT) Result Oropharyngeal contamination, [facility] specimen rejected. Recollect [facility] requested. Gram Stain Result 4+ WBCs [facility] Gram Stain Result >25 epithelial cells [facility] Gram Stain Result 2+ gram positive cocci in [facility] chains and pairs [facility] Gram Stain Result <1+ yeast [facility] Gram Stain Result 1+ gram variable coccobacilli [facility] Specimen Sputum - Expectorated Performing Organization Address City/[facility]/Zipcode Phone Number [address] [address] [place] Sodium (11/01/2019 1:23 PM CDT) Sodium 126 (L) 136 - 145 meq/L [facility] Specimen Blood Narrative Performed At Admissions Manager ID - SÁNCHEZ Valencia [facility] Performing Organization Address City/[facility] Centercode Phone Number [address] [address] [place] Cortisol (11/01/2019 5:11 AM CDT) Cortisol, Total 19.7 (H) 3.7 - 19.4 ug/dL [facility] Specimen Blood Narrative Performed At Admissions Manager ID - LESLI Malone [facility] Performing Organization Address City/[facility]/Zipcode Phone Number [address] [address] CENTER TSH/Free T4 If Indicated (11/01/2019 5:11 AM CDT) TSH 2.852 0.350 - 4.940 uIU/mL [facility] Specimen Blood Narrative Performed At Admissions Manager ID - LESLI Malone [facility] Performing Organization Address City/State/Zipcode Phone Number [facility] [address] [place] [address] [place] Uric acid (11/01/2019 5:11 AM CDT) Uric Acid 3.5 2.6 - 7.2 mg/dL [facility] Specimen Blood Narrative Performed At Admissions Manager ID - LESLI Malone [facility] Performing Organization Address [facility]/Zipcode Phone Number [facility] [address] [place] [address] abdomen/pelvis with IV contrast (10/31/2019 7:32 PM CDT) Specimen Narrative Performed At FINAL REPORT [facility] CT of the abdomen and pelvis, with contr ast Clinical History:Lung mass - staging Technique: CT of the abdomen and pelvis is performed with intravenous contrast administration.This exam wa s performed according to our departmental dose optimization program w hich includes automated exposure control, adjustment of the mA a nd/or kV according to patient's size and/or use of iterative r econstructive technique. Comparison Film:None Discussion: There is a large right-sided pleural eff usion, partially imaged. A few well-circumscribed hypodensities i n liver likely represent cysts, the largest measures 2 cm, althou gh some are too small to be definitively characterized. No biliary d uctal dilatation, and the gallbladder is normal. Spleen, pancreas, adrenal glands are nor mal. Kidneys demonstrate no hydronephrosis, m ass or radiopaque stone. There is atrophied lower moiety of the l eft kidney. No evidence of bowel obstruction, or abn ormal bowel wall thickening. There is mild colonic diverticulosis. No rmal appendix. In the pelvis, the bladder, prostate and seminal vesicles are unremarkable. There are small fat-contai margi bilateral inguinal hernias. There is a aortoiliac stent graft. No as cites, or lymphadenopathy. Osseous structures demonstrate degenerat vijay changes. There is a lytic lesion in the L2 vertebral body versus l arge Schmorl's node. Similar finding is seen in the T9 vertebral body , in conjunction with mild compression deformity. Status post ORIF of the left femur. Impression: Large right pleural effusion. Question lytic lesion versus large Schmo rl's node in T9 and L2 vertebral bodies. Consider correlation w ith bone scan if clinically appropriate. Mild colonic diverticulosis. Signed: Shayna Jacobo MD Report Verified Date/Time:11/01/2019 11:07:27 Reading Location: [facility] C013X [facility] Reading Room Procedure Note Interface, External Ris In - 11/01/2019 11:09 AM CDT FINAL REPORT CT of the abdomen and pelvis, with contr ast Clinical History: Lung mass - staging Technique: CT of the abdomen and pelvis is performed with intravenous contrast administration. This exam was performed according to our departmental dose optimization program w hich includes automated exposure control, adjustment of the mA a nd/or kV according to patient's size and/or use of iterative r econstructive technique. Comparison Film: None Discussion: There is a large right-sided pleural eff usion, partially imaged. A few well-circumscribed hypodensities i n liver likely represent cysts, the largest measures 2 cm, althou gh some are too small to be definitively characterized. No biliary d uctal dilatation, and the gallbladder is normal. Spleen, pancreas, adrenal glands are nor mal. Kidneys demonstrate no hydronephrosis, m ass or radiopaque stone. There is atrophied lower moiety of the l eft kidney. No evidence of bowel obstruction, or abn ormal bowel wall thickening. There is mild colonic diverticulosis. No rmal appendix. In the pelvis, the bladder, prostate and seminal vesicles are unremarkable. There are small fat-contai margi bilateral inguinal hernias. There is a aortoiliac stent graft. No as cites, or lymphadenopathy. Osseous structures demonstrate degenerat vijay changes. There is a lytic lesion in the L2 vertebral body versus l arge Schmorl's node. Similar finding is seen in the T9 vertebral body , in conjunction with mild compression deformity. Status post ORIF of the left femur. Impression: Large right pleural effusion. Question lytic lesion versus large Schmo rl's node in T9 and L2 vertebral bodies. Consider correlation w ith bone scan if clinically appropriate. Mild colonic diverticulosis. Signed: Shayna Jacobo MD Report Verified Date/Time: 11/01/2019 1 1:07:27 Reading Location: [facility] C013X Ortho Con sult Reading Room Performing Organization Address City/State/Zipcode Phone Number [facility] MR brain without IV contrast (10/31/2019 5:46 PM CDT) Specimen Narrative Performed At FINAL REPORT [facility] MRI Brain without contrast Clinical History: lung mass - staging Technique: MRI of the brain utilizing ax ial T2, FLAIR, GRE, DWI; sagittal T1-weighted images. Comparisons: None Findings: There is no evidence of acute infarct or hemorrhage. There is mild periventricular and subcortical white ma tter T2 hyperintensity, which is nonspecific but compatible with chron ic microvascular ischemic change. There is generalized parenchymal volume loss without hydrocephalus, midline shift, or apparen t mass effect. There are no extra-axial fluid collections. The crani ocervical junction is preserved. There is loss of the right in tradural vertebral artery flow void. There is bilateral cataract s urgery. IMPRESSION: No evidence for mass effect. However, gi natasha the clinical history, gadolinium enhanced imaging is recommend ed to exclude metastatic disease. No evidence of acute infarct, hemorrhage , or hydrocephalus. Loss of the right intradural vertebral a rtery flow void. Signed: Yesenia Waite MD Report Verified Date/Time:10/31/2019 17:42:35 Reading Location: [facility] B1 C013V Neuro Ann ding Room Procedure Note Interface, External Ris In - 10/31/2019 5:47 PM CDT FINAL REPORT MRI Brain without contrast Clinical History: lung mass - staging Technique: MRI of the brain utilizing ax ial T2, FLAIR, GRE, DWI; sagittal T1-weighted images. Comparisons: None Findings: There is no evidence of acute infarct or hemorrhage. There is mild periventricular and subcortical white ma tter T2 hyperintensity, which is nonspecific but compatible with chron ic microvascular ischemic change. There is generalized parenchymal volume loss without hydrocephalus, midline shift, or apparen t mass effect. There are no extra-axial fluid collections. The crani ocervical junction is preserved. There is loss of the right in tradural vertebral artery flow void. There is bilateral cataract s urgery. IMPRESSION: No evidence for mass effect. However, gi natasha the clinical history, gadolinium enhanced imaging is recommend ed to exclude metastatic disease. No evidence of acute infarct, hemorrhage , or hydrocephalus. Loss of the right intradural vertebral a rtery flow void. Signed: Yesenia Waite MD Report Verified Date/Time: 10/31/2019 1 7:42:35 Reading Location: [facility] C013V Neuro [facility] Room Performing Organization Address City/State/Zipcode Phone Number GE RIS Urinalysis Microscopic Only (10/31/2019 4:11 PM CDT) RBC, UA 0 /HPF [facility] WBC, UA 1 /HPF [facility] Squam Epithel, UA <1 /HPF [facility] Specimen Urine Narrative Performed At Admissions Manager ID - tech [facility] Performing Organization Address City/State/[place] [address] CENTER Urinalysis with Microscopic If Indicated (10/31/2019 4:11 PM CDT) Color, UA Yellow [facility] [place] Clarity, UA Clear [facility] [place] Specific [place], UA 1.023 1.001 - 1.035 [facility] pH, UA 6.0 5.0 - 8.0 [facility] [place] Protein, UA 20 mg/dL (A) Negative [facility] Glucose, UA Negative Negative [facility] Ketones, UA Negative Negative [facility] Bilirubin, UA Negative Negative [facility] Blood, UA Negative Negative [facility] Nitrite, UA Negative Negative [facility] Leukocytes, UA Negative Negative [facility] Urobilinogen, UA 2.0 (H) 0.2 - 1.0 mg/dL [facility] Specimen Source [facility] Specimen Urine Narrative Performed At Admissions Manager ID - [auto] [facility] Admissions Manager ID - tech Performing Organization Address [facility] [place] [address] C[facility] Sodium, random urine (10/31/2019 4:11 PM CDT) Sodium Urine 70 meq/L [facility] Specimen Urine Narrative Performed At Reference Range: No Normals [facility] Admissions Manager ID - DB Performing Organization Address [facility] [place] [address] [place] Osmolality, urine (10/31/2019 4:11 PM CDT) Osmolality, Ur 580 50-1,200 mOsm/kg mOsm/kg [facility] Specimen Urine Performing Organization Address [facility] Phone Number [address] [address] [place] SARS-CoV2/RT-PCR (Symptomatic ONLY) (10/31/2019 5:30 AM CDT) SARS-COV2/RT-PCR Not Detected Not Detected, Negative [facility] SARS-COV-2 PERFORMING LAB [facility] Specimen Other Narrative Performed At Negative results do not preclude SARS-CoV-2 [facility] infection and should not be used as the sole basis for patient management decisions. Negative results must be combined with clinical observations, patient history, and epidemiological information. A false negative result may occur if a specimen is improperly collected, transported or handled. The limit of detection for this assay is 250 copies/mL. This SARS CoV-2 test is a rapid, real-time RT-PCR test intended for the qualitative detection of nucleic acid from SARS-CoV-2 in a nasopharyngeal swab specimen collected from individuals suspected of COVID-19 by their healthcare provider. This test has not been Food and Drug Administration (FDA) cleared or approved and has been authorized by FDA under an Emergency Use Authorization (EUA). This EUA will be effective until the declaration that circumstances exist justifying the authorization of the emergency use of in vitro diagnostic tests for detection and/or diagnosis of COVID-19 is terminated under Section 564(b)(2) of the Act or the EUA is revoked under Section 564(g) of the Act. Fact Sheet for Healthcare Providers: https://www.[employer]/Documents/Xpert%20Xpre ss%20SARS%20CoV-2/Fact%20Sheets/3023802%20SAR S-COV-2%20HEALTHCARE%20PROVIDERS%20FACT%20SHEE T.pdf Fact Sheet for Healthcare Patients: https://www.[employer]/Documents/Xpert%20Xpre ss%20SARS%20CoV-2/Fact%20Sheets/3023801%20SAR S-COV-2%20PATIENT%20FACT%20SHEET.pdf Performing Laboratory: [address] [place] [address] Performing Organization Address City/[facility]/Zipcode Phone Number [address] [address] CENTER Osmolality, serum (10/31/2019 5:27 AM CDT) Osmolality Serum 258 (L) 275 - 295 mOsm/kg [facility] Specimen Blood Performing Organization Address [facility] Cent[facility]ode Phone Number [address] [address] CENTER after 12/02/2018 Insurance Payer Benefit Plan / Group Subscriber ID Type Phone A ddress MEDICARE MEDICARE A B xxxxxxxxxxx Medicare CDC REVIEW CDC REVIEW xxxxxxxx [address] [place], [place] [phone] Advance Directives For more information, please contact:[facility]anco RamirezS[place], [place] [phone] Code Status Date Activated Date Inactivated Comments Full Code 10/30/2019 10:58 PM 11/05/2019 8:35 PM This code status was determined by: Patient
--- OUTSIDE RECORDS SUMMARY | 2019-12-03 15:39 | XMS REPORT | Continuity of Care Document ---
:1935 Author Organization [facility] t Address [address] [place] [address] [place] [address] Care Team Providers Name Role Phone Damien RAMACHANDRAN Primary Care Physician Merchant VARELA Attending Clinician LINH WHITNEY Attending Clinician Unavailable Linh Whitney MD Attending Clinician Leann Bejarano Attending Clinician Mali Floyd MD Attending Clinician Sabi VARELA, Adolfo Attending Clinician Adrian Hodges MD Attending Clinician Trevor VARELA, RIggy Attending Clinician MALI FLOYD Admitting Clinician Unavailable Payers Payer Name Policy Policy Number Effective Expiration Source Type Date Date MEDICAREMEDICARE A xxxxxxxxxxx [place] Rankin BxxxxxxxxxxxMedicare - Ks dical Center [facility] REVIEWCDC xxxxxxxx [facility] REVIEWxxxxxxxxPO - Medica [facility] [id number] MEDICAREMEDICARE PART A xxxxxxxxxxx 2000 [place] AND 00:00:00 Religious Bxxxxxxxxxxx1998[place] Condition Condition Condition Status Onset Resolution Last Treating Co mments Source Name Details Category Date Date Treatment Clinician Date Hypertensi Hypertensi Disease Active [facility] 00 [place] Thyroid Thyroid Disease Active [facility] St disease disease 11-01 [facility] - 00:[facility]: Medical 00 [place] Lung Lung Disease Active [facility] cancer cancer 10-29 Lu - metastatic metastatic 00:00: Ks dical to bone to bone 00 Center Heart Heart Disease Active [place] murmur murmur 02-03 [facility]i 00:00: st Aortic Aortic Disease Active [place] valve valve 11-19 [facility] disorder disorder 00:00: st Abdominal Abdominal Disease Active [facility] ston aortic aortic 7 [facility] aneurysm aneurysm 00:00: st (AAA) (AAA) 00 without without rupture rupture Essential Essential Disease Active [place] [facility] hypertensi hypertensi 11-19 Ks thodi on on 00:00: st 00 Allergies, Adverse Reactions, Alerts This patient has no known allergies or adverse reactions. Family History Family Member Diagnosis Comments Start Date Stop Date Source Natural father Prostate cancer [facility] Natural mother Liver cancer [facility] Social History Social Habit Start Date Stop Date Quantity Comments Source History [facility] - Alcohol Std Drinks Medica [facility] History [facility] - Alcohol Binge Medical [facility] ter Sex Assigned At [facility] History [facility] 2019-10-30 2019-10-30 1 [facility] - Alcohol Frequency 00:00:00 00:00:00 [facility] Alcohol intake 2017-11-19 2017-11-19 Current [facility] thodist 00:00:00 00:00:00 non-drinker of alcohol (finding) History of tobacco 1971-10-30 Current smoker Jefe Pastor carlos - use 00:00:00 [facility] Smoking Status Start Date Stop Date Source Former smoker 2019-11-03 00:00:00 2019-11-03 00:00:00 [facility] Medications Ordered Filled Start Stop Current Ordering Indication Dosage Frequency Signature Comments Components Source Medication Medication Date Date Medication? Clinician (SIG) Name Name HYDROcodone No pain 1{tbl} Take [address] -acetaminop 11-18 tablet by Narcisa tomlinson (NORCO 00:00: 23:59 mouth Medic [place] 103[address]) 00 :00 every 6 Center 10-325 mg (six) per tablet hours as needed for Pain for up to 10 days. Max Daily Amount: 4 tablets amLODIPine 2020- Yes 10mg QD Take [address] (NORVASC) - 06-26 tablet (10 [place] - 10 MG 00:00: 23:59 mg total) Medica l tablet 00 :00 by mouth Center daily. sodium 2020- Yes 1g Take [address] chloride 1 - 06-26 tablet (1 [place] es - gram tablet 00:00: 23:59 g total) M edical 00 :00 by mouth 2 Center (two) times daily with breakfast and dinner. hydroCHLORO 2019- No 25mg QD Take [address] thiazide 6-25 06-25 by mouth [facility] - (HYDRODIURI 15:44: 00:00 daily. Med ical L) 25 MG 21 :00 Center tablet albuterol 2020- Yes 1{puff} Inhale [address] HFA 6-25 06-25 puff by [facility] - (VENTOLIN 00:00: 23:59 mouth via Me dical HFA) 90 00 :00 inhaler Center mcg/actuati every 6 on inhaler (six) hours as needed for Wheezing. fluticasone 2020- Yes 2{puff} Q.5D Inhale [address] propion-remi 6-25 06-25 puffs by [place] es - meteroL 00:00: 23:59 mouth via Medi jefry (ADVAIR 00 :00 inhaler 2 Center HFA) 45-21 (two) mcg/actuati times on inhaler daily. traMADoL 2019- No 50mg Take [address] (ULTRAM) 50 6-25 07-05 tablet (50 L ukes - mg tablet 00:00: 23:59 mg total) Me dical 00 :00 by mouth Center every 6 (six) hours as needed for up to 10 days. Max Daily Amount: 200 mg escitalopra Yes 20mg QD Take [address] m oxalate 6-19 by mouth [facility] - (LEXAPRO) 22:54: daily. Medica l 20 MG 00 Center tablet losartan Yes 100mg QD Take [address] (COZAAR) 6-19 mg by [facility] - 100 MG 22:54: mouth Medical tablet 00 daily. Center clopidogreL Yes 75mg QD Take [address] (PLAVIX) 75 6-19 by mouth Luke s - mg tablet 22:54: daily. Medica l 00 Center levothyroxi Yes 25ug Take [address] ne 6-19 mcg by [facility] - (SYNTHROID, 22:52: mouth Medic al LEVOTHROID) 20 Every Center 25 MCG morning on tablet an empty stomach. clopidogrel 2018- No 75mg Take 75 mg [facility] (PLAVIX) 75 02-03 by mouth. Me thodi mg tablet 14:17: 00:00 st 26 :00 cyanocobala 2018- No Take by Doc toure min, 02-03 mouth. Methodi vitamin 14:17: 00:00 st B-12, 5,000 26 :00 mcg tablet,disi ntegrating omega 2018- No Take by [place] 3-dha-epa-f 02-03 mouth. Metho di tyler oil 14:17: 00:00 st 1,200 26 :00 (144-216) mg capsule amLODIPine 2018- No 2.5mg QD [facility] 02-03-24 mg by Methodi 2.5 mg 14:17: 00:[address] tablet 26 :00 daily. ibuprofen 2018- No 200mg Q6H Take 200 [place] (ADVIL,MOTR 02-03-24 mg by Method i IN) 200 MG 14:17: 00:[address] tablet 26 :00 every 6 (six) hours as needed for mild pain. loteprednol Yes [place] etabonate 7-03 [facility] (LOTEMAX) 00:00: st 0.5 % 00 drops,gel levothyroxi Yes 50ug Take 50 [place] st[facility] ne 7-10 mcg by Methodi (SYNTHROID, 14:52: mouth. st LEVOXYL) 50 27 mcg tablet losartan-hy Yes 1{tbl} Take 1 [place] drochloroth 7-10 tablet by Met brandon iaangeloe 14:52: mouth. st (HYZAAR) 27 100-25 mg per tablet escitalopra Yes 20mg Take 20 mg [facility] (LEXAPRO) 7-10 by mouth. Met hodi 20 MG 14:52: st tablet 27 simvastatin Yes 40mg Take 40 mg [place] (ZOCOR) 40 7-10 by mouth. Meth cindy MG tablet 14:52: st 27 saw Yes Take by [place] palmetto 7-10 mouth. Methodi fruit 450 14:52: st mg capsule 27 Immunizations Ordered Immunization Filled Immunization Date Status Commen ts Source Name Name Pneumococcal 2019-11-[address] [facility] Conjugate (Prevnar) 00:00:00 [facility] 13-Valent Vital Signs Vital Name Observation Time Observation Value Comments Source Systolic blood 2019-11-05 15:14:00 196 mm[Hg] [facility] Diastolic blood 2019-11-05 15:14:00 81 mm[Hg] [facility] Heart rate 2019-11-05 15:14:00 75 /min [facility] Body temperature 2019-11-05 15:14:00 36.5 Agustina [facility] Respiratory rate 2019-11-05 15:14:00 18 /min [facility] Oxygen saturation in 2019-11-05 15:14:00 93 /min [facility] Arterial blood by Medical Ce nter Pulse oximetry Body height 2019-10-30 21:41:00 170.2 cm [facility] Body weight Measured 2019-10-30 21:41:00 76.068 kg [facility] BMI 2019-10-30 21:41:00 26.27 kg/m2 [facility] Systolic blood 2019-02-03 14:14:00 143 mm[Hg] Jodyto n Religious pressure Diastolic blood 2019-02-03 14:14:00 68 mm[Hg] Jodyt on Religious pressure Heart rate 2019-02-03 14:14:00 56 /min [place] [facility] Body height 2019-02-03 14:14:00 170.2 cm [place] [facility] Body weight 2019-02-03 14:14:00 82.555 kg [facility] BMI 2019-02-03 14:14:00 28.51 kg/m2 [place] [facility] Procedures Procedure Date / Time Performing Clinician Source Performed RHYTHM STRIP - SCAN 2019-11-12 09:43:32 Provider, Default [facility] Scanning [facility] RHYTHM STRIP - SCAN 2019-11-12 09:42:51 Provider, Default [facility] Scanning [facility] RHYTHM STRIP - SCAN 2019-11-06 10:42:23 Provider, Default [facility] Scanning [facility] TRANSFUSION SERVICE 2019-11-05 18:03:35 Provider, Default [facility] - REPORT - SCAN Scanning [facility] BASIC METABOLIC PANEL 2019-11-05 05:25:[address] [facility] (7) [facility] B-TYPE NATRIURETIC 2019-11-05 05:25:[address] [facility] FACTOR (BNP) [facility] CALCIUM, IONIZED 2019-11-05 05:25:00 Shlomo Mcqueen [facility] L ukes [facility] MAGNESIUM 2019-11-05 05:25:00 Shlomo Mcqueen [facility] PHOSPHORUS 2019-11-05 05:25:00 Shlomo Mcqueen [facility] CBC W/PLT COUNT & AUTO 2019-11-05 05:25:00 Merchant Pierre [facility] S t [facility] DIFFERENTIAL [facility] ABORH, MANUAL 2019-11-04 08:56:00 Norma Mead [facility] CALCIUM, IONIZED 2019-11-04 05:57:00 Asad [facility] COMPREHENSIVE METABOLIC 2019-11-04 05:57:00 [facility] PANEL [facility] MAGNESIUM 2019-11-04 05:57:00 [facility] PHOSPHORUS 2019-11-04 05:57:00 [facility] TYPE AND SCREEN, 2019-11-04 05:57:00 Keo Hodges [facility] AUTOMATED [facility] CBC W/PLT COUNT & AUTO 2019-11-04 05:57:00 Louie Pierre [facility] S t [facility] DIFFERENTIAL [facility] MR BRAIN WITH IV 2019-11-03 21:25:00 Ajay Bejarano [facility] CONTRAST [facility] MR CERVICAL SPINE WITH & 2019-11-03 21:25:00 Ajay Bejarano [facility] - WITHOUT IV CONTRAST Medical Cent er REPORT OF PROCEDURE - 2019-11-03 14:51:20 [facility] REPORT OF PROCEDURE - 2019-11-03 14:49:43 [facility] 2019-11-03 14:24:14 Keo Hodges [facility] FINE NEEDLE ASPIRATE BY 2019-11-03 14:24:00 Keo Hodges [facility] EBUS FNA REQUEST 2019-11-03 14:12:42 Keo Hodges [facility] FINE NEEDLE ASPIRATE BY 2019-11-03 14:12:00 Keo Hodges [facility] EBUS FNA REQUEST 2019-11-03 14:04:51 Keo Hodges [facility] FINE NEEDLE ASPIRATE BY 2019-11-03 14:04:00 [facility] LACTATE DEHYDROGENASE 2019-11-03 14:03:[address] [facility] (LDH) [facility] EBUS FNA REQUEST 2019-11-03 14:01:58 Keo Hodgse [facility] FINE NEEDLE ASPIRATE BY 2019-11-03 14:01:00 Keo Hodges [facility] EBUS FNA REQUEST 2019-11-03 13:59:15 Keo Hodges [facility] FINE NEEDLE ASPIRATE BY 2019-11-03 13:59:00 [facility] FUNGUS CULTURE + SMEAR 2019-11-03 13:40:54 [facility] BODY FLUID CULTURE + 2019-11-03 13:40:54 [facility] GRAM STAIN [facility] AFB CULTURE + SMEAR 2019-11-03 13:40:54 Keo Hodges [facility] (NON-SPUTUM) [facility] BODY FLUID CELL COUNT 2019-11-03 13:40:[address] [facility] WITH DIFFERENTIAL [facility] BODY FLUID CRYSTALS 2019-11-03 13:40:02 Keo Hodges [facility] ALBUMIN PLEURAL FLUID 2019-11-03 13:40:02 [facility] GLUCOSE PLEURAL FLUID 2019-11-03 13:40:02 [facility] LACTATE DEHYDROGENASE 2019-11-03 13:40:02 [facility] (LD), PLEURAL FLUID Medical [facility] er PROTEIN, TOTAL, PLEURAL 2019-11-03 13:40:02 Carroll [facility] CYTOLOGY REQUEST 2019-11-03 13:39:56 Carroll [facility] s [facility] CYTOLOGY 2019-11-03 13:39:00 [facility] THORACENTESIS 2019-11-03 12:00:00 [facility] BRONCHOSCOPY,ENDOBRONCHI 2019-11-03 12:00:00 [facility] AL ULTRASOUND (EBUS) Medical Jovon ter TRANSTRACH/ TRANSBRONCH SAMPLING CBC W/PLT COUNT & AUTO 2019-11-03 03:48:00 Pierre Mcgarry [facility] S destiny Rankin - DIFFERENTIAL [facility] BASIC METABOLIC PANEL 2019-11-03 03:47:[address] [facility] (7) [facility] PROTHROMBIN TIME/INR 2019-11-03 03:47:00 [facility] APTT 2019-11-03 03:47:00 [facility] ECG 12-LEAD 2019-11-02 08:26:55 Unknown, Hl7 [facility] ECG 12-LEAD 2019-11-02 08:26:29 Unknown, Hl7 [facility] BASIC METABOLIC PANEL 2019-11-02 05:25:00 [facility] MAGNESIUM 2019-11-02 05:25:00 [facility] CBC (HEMOGRAM ONLY) 2019-11-02 05:25:00 [facility] SPUTUM CULTURE + GRAM 2019-11-01 14:21:00 Harley [facility] STAIN [facility] SODIUM 2019-11-01 13:23:00 Issac [facility] BASIC METABOLIC PANEL 2019-11-01 05:11:00 [facility] (7) [facility] MAGNESIUM 2019-11-01 05:11:00 [facility] CBC (HEMOGRAM ONLY) 2019-11-01 05:11:00 [facility] B-TYPE NATRIURETIC 2019-11-01 05:11:00 Issac [facility] FACTOR (BNP) [facility] URIC ACID 2019-11-01 05:11:00 Issac [facility] CORTISOL 2019-11-01 05:11:00 Issac [facility] TSH/FREE T4 IF INDICATED 2019-11-01 05:11:00 Brice [facility] CT ABDOMEN/PELVIS WITH 2019-10-31 19:32:00 Harley [facility] IV CONTRAST [facility] MR BRAIN WITHOUT IV 2019-10-31 17:46:00 Harley [facility] CONTRAST [facility] URINALYSIS WITH 2019-10-31 16:11:00 [facility] - MICROSCOPIC IF INDICATED [facility] OSMOLALITY, URINE 2019-10-31 16:11:00 [facility] SODIUM, RANDOM URINE 2019-10-31 16:11:00 [facility] URINALYSIS MICROSCOPIC 2019-10-31 16:11:00 [facility] SARS-COV2/RT-PCR ([facility] & 2019-10-31 05:30:00 [facility] - REF LABS) [facility] BASIC METABOLIC PANEL 2019-10-31 05:27:00 DoonObie [facility] (7) [facility] PROTHROMBIN TIME/INR 2019-10-31 05:27:00 Doon [facility] MAGNESIUM 2019-10-31 05:27:00 Doon [facility] CBC (HEMOGRAM ONLY) 2019-10-31 05:27:00 Doon [facility] OSMOLALITY, SERUM 2019-10-31 05:27:00 Doon [facility] CBC W/PLT COUNT & AUTO 2019-10-31 05:27:00 DoonObie [facility] S t [facility] TTE COMPLETE, WO 2019-02-09 17:35:48 Ambrocio Murray Met hodist CONTRAST, W DOPPLER ([id number]) ECG 12-LEAD 2019-02-03 13:16:36 Ambrocio Murray Meth odist Plan of Care Planned Activity Planned Date Details Comments Source Future Scheduled 2020-01-12 INFLUENZA VACCINE (#1) [facility] Test 00:00:00 [code = INFLUENZA Medical Ce nter VACCINE (#1)] Future Scheduled 2019-12-27 PNEUMOCOCCAL [address] - Test 00:00:00 HIGH/HIGHEST RISK (2 Medical Center of 2 - PPSV23) [code = PNEUMOCOCCAL 65+ HIGH/HIGHEST RISK (2 of 2 - PPSV23)] Future Scheduled 2019-12-12 INFLUENZA VACCINE [place] [facility] Test 00:00:00 [code = INFLUENZA VACCINE] Future Scheduled 1999-09-12 MEDICARE ANNUAL [facility] L [facility] - Test 00:00:00 WELLNESS (YEAR 2 or Medical Center FIRST YEAR if no IPPE) [code = MEDICARE ANNUAL WELLNESS (YEAR 2 or FIRST YEAR if no IPPE)] Future Scheduled 2000 65+ PNEUMOCOCCAL [facility] Test 00:00:00 VACCINE (1 of 2 - PCV13) [code = 65+ PNEUMOCOCCAL VACCINE (1 of 2 - PCV13)] Future Scheduled 1983-09-16 SHINGLES VACCINES (#1) [facility] Test 00:00:00 [code = SHINGLES VACCINES (#1)] Results Test Description Test Time Test Comments Results Result Comments Source Albumin Pleural Fluid 2019-11-10 20:25:00 Test Item Value Reference Range Interpretation Comme nts Albumin, Pleural Fluid 2.44 g/dL Phyllis use of the wide range of (test code = 1748-3) Albumin levels seen in serous body fluids,res ults are best evaluated by us ing the serum-effusion albumin gradient(serum albumin result minus the serou s body fluid albumin result) todifferentiate whether the fluid is a padilla sudate or an exudate. A grad ient value of > 1.2 g/dL is see n in transudates.A g radient value of < or = 1.2 g /dL is seen in exudates. CHRISTINA (test code = CHRISTINA) Performing Lab EZ [facility] [address] [place] [address] Jefe Gtz MD, PhD, PRUDENCIO [facility] Center[facility]INE NEEDLE ASPIRATE BY [id number] 10:17:00 Medical Cytology Report Case: [id number] Authorizing Provider: Keo Hodges MD Collected: 11/03/2019 02:04 PM [facility] Received: 11/03/2019 02:17 PM SERVICES Pathologist: Barry Metzger MD Specimen: Lymph Node, Interlobar, Right, Station 11R Additional immunostains were ordered. The original diagnosis rendered is unchanged.CK 5/6: NegativeCDX2: PositiveAdditional CPT codes: 81103 x 2Addendum electronically signed by Barry Metzger MD on 11/09/2019 at 10:17 AMLYMPH NODE, INTERLOBAR RIGHT, STATION 11R EBUS FNA BY CLINICIAN (DIRECT SMEARS AND CELLBLOCK OF ASPIRATE): - POSITIVE FOR MALIGNANCY POORLY DIFFERENTIATED ADENOCARCINOMA, LUNG PRIMARY Signing Pathologist Direct Phone Line: [phone] signed by Dario Metzger MD on 11/04/2019 at 4:20 PMSections of the cell block show a poorly differentiated adenocarcimoma with immnohistochemical features typical for a lung primary (positive staining for TTF-1 and CK 7 and negative staining for CK20 and p40)Please see cytopathology cases [id number], [id number], 1557, 1561 and [id number], [id number], 13811, 14742, 89522 x 3Right pleural effusion, recently discovered lung cancer with suspected metastasis to boneLYMPH NODE, INTERLOBAR RIGHT, STATION 11R EBUS FNA35 mls in cytorichred; 4 direct smear slides, cell blockCollected: [id number]: [id number] CELLS WITH ABUNDANTNECROSIS, FAVOR NON-SMALL CELL CARCINOMA (14:26 PM, [place])The interpretation of this case included the use of immunohistochemistry or special stains.Control Slides Examined: In-house known positive controls were evaluated along with the test tissue. These control slides run alongside of the patients sample show appropriate staining. Internal positive and negative controls when available are evaluated Immunohistochemistry technical testing was performed at [facility], Pathology Laboratory where it was developed and its performance characteristics were determined. It has not beencleared or approved by the U.S. Food and Drug Administration. The FDA has determined that such clearance or approval is not necessary. The test is used for clinical purposes. It should not be regarded as investigational or for research. This laboratory is certified under the Clinical Laboratory Improvement Amendments of 1988 (CLIA-88) as qualified to perform high complexity clinical laboratory testing.[facility], Department of Pathology, [address] [place] [address], [facility], Department of Pathology, [address] [place] [address], [facility]tvwf[facility], Department of Pathology, [address] [place] [address], Cssavmv Pleural [id number] 16:45:00 Test Item Value Reference Range Interpretation Comments Glucose, 86 mg/dL Reference rang e Pleural Fluid approximates t hat (test code = found in serum. 2346-5) CHRISTINA (test code Performing Lab = CHRISTINA) EZ [employer] [address] [place] [address] Jefe Gtz MD, PhD, PRUDENCIO [facility] CenterLactate Dehydrogenase (LD), Pleural [id number] 16:44:00 Test Item Value Reference Range Interpretation Comments Lactate 203 U/L See Note: Reference Dehydrogenase (LD), Range:TR ANSUDATE Pleural Fluid (test : <113E XUDATE: code = 38881-5) >113 CHRISTINA (test code = Performing Lab CHRISTINA) EZ [employer] [facility] [address] [place] [address] Jefe Gtz MD, PhD, PRUDENCIO [facility] CenterProtein, Total, Pleural [id number] 16:44:00 Test Item Value Reference Range Interpretation Comments PROTEIN, TOTAL, 4.5 g/dL See Note: Reference PLEURAL FLUID Range:TRANSUDA TE: (test code = < OR = 3.0EXUDA TE: 2882-9) >3.0 CHRISTINA (test code = Performing Lab CHRISTINA) EZ [facility] [place] [address] [place] [address] Jefe Gtz MD, PhD, PRUDENCIO [facility] CenterBody fluid culture + gram [id number] 12:35:00 Test Item Value Reference Range Interpretation Comments Result (test code = 6463-4) No growth Gram Stain Result (test No organisms seen code = 1123) [facility] CenterBODY FLUID CULTURE + GRAM [id number] 12:35:00 Test Item Value Reference Range Interpretation Comments CULTURE (BEAKER) (test No growth code = 1095) GRAM STAIN RESULT <1+ WBCs (BEAKER) (test code = 1123) GRAM STAIN RESULT No epithelial cells (BEAKER) (test code = 83749) GRAM STAIN RESULT No organisms seen (BEAKER) (test code = 39487) Basic Metabolic [id number] 06:58:00 Test Item Value Reference Range Interpretation Comments Sodium (test code = 131 meq/L 136-145 L 2951-2) Potassium (test code = 4.0 meq/L 3.5-5.1 2823-3) Chloride (test code = 97 meq/L 98-107 L 2075-0) CO2 (test code = 27 meq/L 22-29 2028-9) BUN (test code = 6 mg/dL 7-21 L 3094-0) Creatinine (test code 0.67 mg/dL 0.57-1.25 = 2160-0) Glucose (test code = 83 mg/dL 70-105 2345-7) Calcium (test code = 8.6 mg/dL 8.4-10.2 25518-5) EGFR (test code = 112 mL/min/1.73 [place] [address]-5) NOT ACCURATE CREATININE CLEARANCE IN PREDICTING GLOMERULAR FILTRATION RATE . ESTIMATED GFR I S NOT APPLICABLE FOR DIALYSIS PATIENTS. CHRISTINA (test code = CHRISTINA) Research Physiologist ID - PIAYA L Lab Interpretation Abnormal (test code = 05058-0) [facility] CenterMagnesium2020-06-25 06:58:00 Test Item Value Reference Range Interpretation Comments Magnesium (test code = 2.0 mg/dL 1.6-2.6 33788-2) CHRISTINA (test code = CHRISTINA) Research Physiologist ID - PIAYA L Lab Interpretation (test Normal code = 95549-1) [facility] CenterPhosphorus2020-06-25 06:58:00 Test Item Value Reference Range Interpretation Comments Phosphorus (test code = 2.5 mg/dL 2.3-4.7 2777-1) CHRISTINA (test code = CHRISTINA) Research Physiologist ID - PIAYA L Lab Interpretation (test Normal code = 34018-8) [facility] [facility]2020-06-25 06:58:00 Test Item Value Reference Range Interpretation Comments PHOSPHORUS (BEAKER) (test code = 2.5 mg/dL 2.3-4.7 604) Research Physiologist ID - LALYAYA [id number] 06:58:00 Test Item Value Reference Range Interpretation Comments MAGNESIUM (BEAKER) (test code = 2.0 mg/dL 1.6-2.6 627) Research Physiologist ID - LALYAYA LBASIC METABOLIC [id number] 06:58:00 Test Item Value Reference Range Interpretation Comments SODIUM (BEAKER) 131 meq/L 136-145 L (test code = 381) POTASSIUM (BEAKER) 4.0 meq/L 3.5-5.1 (test code = 379) CHLORIDE (BEAKER) 97 meq/L 98-107 L (test code = 382) CO2 (BEAKER) (test 27 meq/L 22-29 code = 355) BLOOD UREA NITROGEN 6 mg/dL 7-21 L (BEAKER) (test code = 354) CREATININE (BEAKER) 0.67 mg/dL 0.57-1.25 (test code = 358) GLUCOSE RANDOM 83 mg/dL 70-105 (BEAKER) (test code = 652) CALCIUM (BEAKER) 8.6 mg/dL 8.4-10.2 (test code = 697) EGFR (BEAKER) (test 112 mL/min/1.73 ESTIM ATED GFR IS code = 1092) sq m NOT ACCURATE CREATININE CLEARANCE IN PREDICTING GLOMERULAR FILTRATION RATE . ESTIMATED GFR I S NOT APPLICABLE FOR DIALYSIS PATIEN TS. Research Physiologist ID - LESLI LB-type Natriuretic Factor (BNP)2019-11-05 06:21:00 Test Item Value Reference Range Interpretation Comments BNP (test code = 17371-8) 31 pg/mL 0-100 CHRISTINA (test code = CHRISTINA) Research Physiologist ID - LESLI L Lab Interpretation (test Normal code = 16293-4) [facility]2019-11-05 06:21:00 Test Item Value Reference Range Interpretation Comments B-TYPE NATRIURETIC PEPTIDE (BEAKER) 31 pg/mL 0-100 (test code = 700) Research Physiologist ID - LESLI LCBC with platelet count + automated [id number] 05:48:00 Test Item Value Reference Range Interpretation Comments WBC (test code = 6690-2) 8.7 3.5- 10.5 K/L RBC (test code = 789-8) 3.71 4.63- 6.08 M/L L MCHC (test code = 786-4) 32.4 32.3- 36.5 GM/DL L Hematocrit (test code = 4544-3) 32.4 % 40.1-51 L MCV (test code = 787-2) 87.3 fL 79-92.2 MCH (test code = 785-6) 28.3 pg 25.7-32.2 RDW (test code = 788-0) 13.5 % 11.6-14.4 Platelets (test code = 777-3) 185 150- 450 K/CU MM MPV (test code = 91333-8) 8.9 fL 9.4-12.4 L nRBC (test code = 413) 0 0- 0 /100 WBC % Neutros (test code = 429) 71 % % Lymphs (test code = 430) 17 % % Monos (test code = 431) 9 % % Eos (test code = 432) 2 % % Baso (test code = 437) 1 % # Neutros (test code = 670) 6.21 1.78- 5.38 K/L H # Lymphs (test code = 414) 1.47 1.32- 3.57 K/L # Monos (test code = 415) 0.78 0.30- 0.82 K/L # Eos (test code = 416) 0.18 0.04- 0.54 K/L # Baso (test code = 417) 0.04 0.01- 0.08 K/L Immature Granulocytes-Relative 0 % 0-1 (test code = 2801) Lab Interpretation (test code = Abnormal 13968-5) [facility] W/PLT COUNT & AUTO [id number] 05:48:00 Test Item Value Reference Range Interpretation Comments WHITE BLOOD CELL COUNT (BEAKER) 8.7 K/ L 3.5-10.5 (test code = 775) RED BLOOD CELL COUNT (BEAKER) 3.71 M/ L 4.63-6.08 L (test code = 761) HEMOGLOBIN (BEAKER) (test code = 10.5 GM/DL 13.7-17.5 L 410) HEMATOCRIT (BEAKER) (test code = 32.4 % 40.1-51.0 L 411) MEAN CORPUSCULAR VOLUME (BEAKER) 87.3 fL 79.0-92.2 (test code = 753) MEAN CORPUSCULAR HEMOGLOBIN 28.3 pg 25.7-32.2 (BEAKER) (test code = 751) MEAN CORPUSCULAR HEMOGLOBIN CONC 32.4 GM/DL 32.3-36.5 (BEAKER) (test code = 752) RED CELL DISTRIBUTION WIDTH 13.5 % 11.6-14.4 (BEAKER) (test code = 412) PLATELET COUNT (BEAKER) (test 185 K/CU MM 150-450 code = 756) MEAN PLATELET VOLUME (BEAKER) 8.9 fL 9.4-12.4 L (test code = 754) NUCLEATED RED BLOOD CELLS 0 /100 WBC 0-0 (BEAKER) (test code = 413) NEUTROPHILS RELATIVE PERCENT 71 % (BEAKER) (test code = 429) LYMPHOCYTES RELATIVE PERCENT 17 % (BEAKER) (test code = 430) MONOCYTES RELATIVE PERCENT 9 % (BEAKER) (test code = 431) EOSINOPHILS RELATIVE PERCENT 2 % (BEAKER) (test code = 432) BASOPHILS RELATIVE PERCENT 1 % (BEAKER) (test code = 437) NEUTROPHILS ABSOLUTE COUNT 6.21 K/ L 1.78-5.38 H (BEAKER) (test code = 670) LYMPHOCYTES ABSOLUTE COUNT 1.47 K/ L 1.32-3.57 (BEAKER) (test code = 414) MONOCYTES ABSOLUTE COUNT (BEAKER) 0.78 K/ L 0.30-0.82 (test code = 415) EOSINOPHILS ABSOLUTE COUNT 0.18 K/ L 0.04-0.54 (BEAKER) (test code = 416) BASOPHILS ABSOLUTE COUNT (BEAKER) 0.04 K/ L 0.01-0.08 (test code = 417) IMMATURE GRANULOCYTES-RELATIVE 0 % 0-1 PERCENT (BEAKER) (test code = 2801) Calcium, [id number] 05:40:00 Test Item Value Reference Range Interpretation Comments Calcium, Ion (test code = 1994-3) 1.07 mmol/L 1.12-1.27 L pH, Blood (test code = 88676-4) 7.45 Lab Interpretation (test code = Abnormal 65774-4) [facility], [id number] 05:40:00 Test Item Value Reference Range Interpretation Comments CALCIUM IONIZED (BEAKER) (test 1.07 mmol/L 1.12-1.27 L code = 698) PH, BLOOD (BEAKER) (test code = 7.45 1810) Fine Needle Aspiration by [id number] 17:36:00 Test Item Value Reference Range Interpretation Comments Case Report (test code Medical Cytology Report = 104) Case: [id number] Authorizing Provider: Keo Hodges MD Collected: 11/03/2019 02:24 PM [facility]ing [facility] Received: 11/03/2019 04:00 PM SERVICES Pathologist: Barry Metzger MD Specimen: Lymph Node, Lower Paratracheal, Left, Station 4L DIAGNOSIS (test code = c1qkcTBmGGMlj6voHYLezQS 3220) uZzEwMzNcZnRuYmpcdWMxIH wvwfUlTQspb9KkN6MsXwZrK FxhbnNpXGRlZmxhbmcxMDMz YJB8zkTkSGIcPOgaBUGgMPs kFs6lcZQhxNymXlYkJVEes3 iwluWThaphoVa5x3ntLTYgH kD9dUZbUHdeA9junqCzvCQu NQPlQEg0qO49SFBzvZ6mjSR uMXznumQfOfX5SUzqPLGeLt V7WVXlhCNbNEMhQ6ikMPTgE LieVPDqIXabdEWsGVS5rGoz l9U9mLXizRUztIarRuWxXtD oNCEJp3ZdNHv2fEmaI6NqBL PjFiK8oZHuJREeWKvuWIDbR XPeolK5aY98JEwcfyE7mUXl h2Yzb67wr495hV8bgTRmAFJ 3EVLmTHNgnGMrGRErXLO8QL PawUBfI9l3PqSwyMUwX6P8O xBhsWEmU6R5DqXrwNWuC5S1 PkLoyZXoQCZxkNWtYr7wwQR vzCFiev1avs62MTQ3r0TucX jxXGH2HRK1SgPeKb3dmBWaH SUnIA3lSwYzuPObBTNdne66 hNctKBoqcwMrvO0hOoQpMMK okOAoWNQhXP6whQRiDSHziQ 5ucmxjXHBnYnJkcmhlYWRcc VhuhzJmXn5glGrvNBY7APfa J2yhoJ8pHhW3FFvhG4vjzM1 wVOw2HPqkhRZ5ZFUpvR4qEK 9ylnocd9irEcIeRM2fvlgwp 5grFrItYQ1zgux5w8heInEw VH6jkzxtw4awLeEoMCydHEN ixobbVXEpd9UzagtlQYXlb7 CwH9EibWauF87daYbuD63gV SJkeXewdE3mwCxotB1eAoRt ZnMyNFxxbFxwbGFpblxmMVx mczIwXGxhbmcxMDMzXGhpY2 ugMfExZOMwuNuzIIuvv1SwC NYtVDOvIeRjSFyHZBmhRv8B JMwbSW2PEPHiZSVUUZCLAXO IRUFMLCBMRUZULCBTVEFUSU 7EYMRZUPOOOTOhRe5HETBWQ BTSGQ6EV3cXCrYfT6eQV6NJ KI5LPSUOSHTCPWwDQFULZ8L QBM1XOWUBADtHPTBDRUtwjF TwPXNeJJEtEIFKL0jEWIKLR AJWOyJZLHiSU92ZZiDNLZHp iwLcQCLsXDZRP44JKViqNWb GFbTAGA0TPQYGFWEnDZWIUs 7GTZMBZY1EXOJdwRYzGSGau j51KJA8GgKlx9G8BIR4ANNs CCIun1ugTTGahPEsDvHcPgX cZnRuYmpcdWMxXGRlZmYwe1 afq259tRKov2ycCGRaCnZ5u BNnNZGqiYXdV868NESbNCqj e6ucq1CyXTIrrUGrv0F1SSX HwwjcqSy3sUkhL18st2R2Pg uoE6pfMFHpRGPzW1WaSO1sF NMyLvo9DWN1UGD5GXGbTRDn I5CwNO1zIZUkfSFiILv5t0s joLbtAGWhADR2r8amRVsxxv EcTU5mux7ceRq2x2rizgIzU JAjVUDynCJIPFLfW5WnrHvw Li8seUy3sKnbXawiCZH8Qsh 8LO6wns42onz9sMjgOQGfzy szLeQ5LLyhAWDmsldwSJv8H NirASKifVW2FYUibRRtM8Bc MWWsZZ0kvsu9YDS1AFolYRD rMbL8FMLheYZkGNUxiBdkIL zop256BLO2KoWcZG0nF5Jja 4N3dY7wpPTtHDPfjEJrRbHp AZOjjz3bqKTxNNulc1MvRFJ 7xxI1gVXhwLKmNZYiWxB4PN fsCQ0std77TIMtYLX2od7gh XIcjVmslmUzkWVkKVgfA6Ts OMVuc862YDWrI4XeSTTbk9O 0geYvOrHhZXRdzDO0fdW5YL PyCF4fhgwwz6ctLJgrGMmsA WKzojQ8nrU6WYRtrKKoV2Ff eC9oRHJiHR9gwfkre7wpYRK 3JZqtWEVhAQR2JfSiLEJom3 Tvoxt6GmHrn2YhxWRjKAjeG 80qy960TMReblTyN0mvbQVv wfwemRJtntfgVOgbkuC8YBA xJFancnibVJMbVCmjZ3anEj FkYBXqrWpyJRaua1CuMZZwX LJtLnAxmVNyDSEmSik3APJg oSAbIQZrKfXiX8pxgjbsQqL PTBOsz3hyF6vofBYHaPLoC2 QgUGhvbmUgTGluZTogODMyL XL8VK4zVXGfQCTaox24 COMMENT (test code = b8zudQKeSBWiuTArJaUfWXM 3353) hXCVmk6eqIEEsbFGuKnRqCd NcZnRuYmpcdWMxXGRlZmYwe 3dhe728mBIos2qiXFQeHnG6 bDUcHXXxgHUoW634MBSpNFo yp5qeo9KpVZGxbQKto9D4KW WDlcbyiFo9iAjyJ94ix4H4T qspW2emKRFsRHRxZ2AjLU1f COVsYnv0JWR6HJC8VZOdIJJ tZ4VmQE5zFAUhdKDfVIx2w7 urmTycPTNzFIV3y5agXCibs rMzIE5irm0kyCm5q7ttjgTk SJEzEPGmxVBTSJJzF9HmvFq bXe2jeDt9fPkiHukdDPJ4Ce l1BH0zsn25zng4dAkwQSTnz fpoKgY4YPfcEOUxgmzlHOy3 MFxtYXJnbDcyMFxtYXJncjc yMFxtYXJndDcyMFxtYXJnYj wbENzvSVEhMBO9HEpqq011E CK6BDxka2adz7jphWMlNwg1 TMFzFiUfIqldBJjmp0Lxp7g tHPGfmo8gHCR3qLQbmUpxg6 X7vJJbWAQdpHEpngZsSUHaE gL1JTfmQQ3qng97IXLkLVF1 go6yqUIcwQgpypAjhLYcPBr qZ4DxOZAew219HTLpQ2TgXX Qmd3X7bzCrZtIeXNLejXS8k mB9ZDImNCv1cUJppzA8hpMc iSJyS6fouY49RqRleSFrV8X ysV30WjWacUPwH8OyxV54Tw DquPBoO3VpmL53FhDjbKTbU YXrhWElWc7aaCHpoUUho7Ug sHYlINfsG69fz428VOOqsqO zI0jdcTFbxtrpiNQyxencTC lmlhF1FQt4reXnoyqalGvhg GFpblxmMVxmczIwXGxhbmcx HXMiYNhrC2lwSkLwIDLlsOp sCHflv3SbZTFiHEKfWpQyOr GbGYEcmITxncC6fALnrI7qj Q8pcBxtcD7srOAscNZgoOCc pA9myQ2omrCbwwMCHiKsSRP 1NTYsIHRoaXMgaXMgYSBwcm nrDRM8UMi6guvoDFUftm2fD NIxnV2haEAoJWWukfRPdCKs v9Uzk0EvHWJ0iP1qOXOjy1o mN4muF8NeNEScRmKrOBU2JM SrHDW8ZMToSUB1EBVmCUJ0D SfxIP4jLVF9MeTduASxcE== CPT Code(s) (test code a7xseZQvSJAqlTUfAdSkEOK = 3357) bQDEas0ztWSLelYCoZmXoKu NcZnRuYmpcdWMxXGRlZmYwe 6mkz944mACiv4yfQBFiXfS0 dXRrINPwsPUvL022m5ped3c gphHmxFA8PGTgEQH6VByxam BqbfN1MZyhfQZdJmP3EAcnw eOwIJkmqsMbltJyItw9HYQn R770EBO1eLiie9soMDS0HNV kALCrNsUyMn8mdYGhC217DQ TpPSQZOYDmlRb6RIIggqAsl jIesNZCw901N228r6dbBDSk arGpsTxKfdcht8avB830ZGA hcGVydzEyMjQwXHBhcGVyaD K4QSLrZG2xflgeXwTrJU6ba cckBsCjHF4cioo7FmUjFC7k cmdiNzIwXGhlYWRlcnkwXGZ wg2TvamxxIQ4wP4Onl6J1qC 9maXRcZGVmdGFiNzIwXGZvc v7trDHyUIllh9LpLGD8ciQ6 sRWgfPKyMRSvTZ87Qucej0Z qQokkYDE1ILBrfbMek6Lcp4 nwVlOiugBuZ0rnO6ZjFHLqV YBzDDDfSnZmchBso8Ahr8Uv eOXorWa9p7mdIMPyDZSseAe cg4umIML5RELlE1B5tSBfc7 rjXVmkPHUboOW2upsjZVlfF HXynzZ4lykdIQyoVMCjnUW8 ooicDZmrYGQwAcO9zcpdYXb hXKGqYAN9WDqti261PWP0QN xzYmtwYWdlXHBnbmNvbnRcc GduZGVjXHBsYWluXHBsYWlu XGYwXGZzMjRccWxccGxhaW5 zQmIbLvWjFGrgIE2lBDGrL2 nocUPdHUZzMBErN3zdKiWao T5fuTbkQDkytfYpCAj6BWqp ASL8KPLnIFcdLIX8 CLINICAL DATA (test q5vziXCzVNDuyBLeLnCfQLL code = 3355) wNITwy2qhWYMpiQIjXsNqJd NcZnRuYmpcdWMxXGRlZmYwe 5ayu697wZWew9fpQNOlZfV0 rTPaAGWmtYOxS357ESCzNJt pp8vfb0IfWFAehNPpn3U3KJ MBwzjclOc6aGxyJ02qo2G5T uncU7jsRKYbEDCmZ7AgDM5k IGZpTtr4QGH5CWP7FEIoLES mJ9QzDC7tEIRhiQCbUHh8l4 rlhJufYTCyOSC3q2bwUWqcf kGoJH9nfr0llXs4r4yxhaAr QSFtJXSpwZVTXECpS1ZmwYz qIh9nfEr3fVcnLbebTNX2As f4EJ1ohn45yfg8sRchETWsw zbdAoE6BVjtJFLcnqdfUNo6 MFxtYXJnbDcyMFxtYXJncjc yMFxtYXJndDcyMFxtYXJnYj uyICqiUUKeFTC1HJulf201Z DN0QWijf8vxc5mruGDsYnz4 HULnBqDvHpqfFUkxc6Meo4u mNXYijx7vQHB7mAKqjDcex8 N4sNKyCYSphDZlmfTyGYDtQ cI3MJvsYT6hcn20GXZpSMT3 vx9crAUqtUhmlgKgrUBgUTg lN7XxJHPph146VRFdA9OqPZ Msp9U9ayXuHvNfEVCyeJJ9u hN6XXItPDr0dONxbiE6ifSt hQPlC0wobO57WdWtvJXeU2I uiL34QqPcrFRbH8YwrT77Pd RuoRLgX0UgvS37GoYobZXxN ZPgpRVaLt4gxILhkGTpy5Cf oVEbFTajB96ay374RTOsctA yF3tjoKOejnqzuHXylravDU yxdkT4WJNcevChbJyypB7vO mZxVuCgLPzjUP0wNVWmM1sx eYZzPNKfPHAdM5keVoFlsB3 cjNuxPSokubOyOARfI1v9ON OrJWAjDGskESVdjKJav94mI DEiI7CrjCb4FACjq5SnvuTg KXZlaXHfWmQaZE4xGNEsu6s 0oXMdiCUlZEN6DRLobAV8ZV L6QBXentE1ahCua14cSQKss n0= SPECIMEN SOURCE (test n6omoJUfTZUvvZAaAuYoNAE code = 3377) oZMRgk5cmSQBhiODtNnAxVv NcZnRuYmpcdWMxXGRlZmYwe 0xyk700fVKbd8prYWTyIeP5 qEKkEIYbbLVqA161l9ugz3s brpRunLT4PRZrYCJ6SDjogi OxqsG1ZEsbtIQdWeG7GFawy yAmSDloafUyzfWhYck9EGQa K120DUI0lXmgz0jzYNV1RYQ qNUKnXgQrKe8ppRMwX658OC ZxVHGDJKTmyVs7GTFyyoHkf wHreVRGq264G209f3ijAESm zhBrrVfBtdkal8yvC393NXE hcGVydzEyMjQwXHBhcGVyaD M6TINrPA6jssijVnNpHD2tw exsBfAqDN2ldtv5SrRmAG2b cmdiNzIwXGhlYWRlcnkwXGZ bc3WgfpdfRB4zD8Rcx9B9tT 9maXRcZGVmdGFiNzIwXGZvc a5anLSdISmxm9KyEQM4xpI1 kCJmrXEeQWBpPS08Hfhdb0T uHwusHYW6XSHbejIri9Xcg5 mhUqUiqyNtO5xaM3PwVDByG ZUyBMBvRaTdecChg4Syi4It wNLapWa2k0piJILqEVKhcOf ce3gtELC9XUTwA2H4bFQtc1 haPVavUHSfmLY9apzoISxrP ILkkxV4jueiXWceFQVroXE4 chhnJIygQQHrLqZ5ztdsGIa dDQMmNQK2KVhlu356TPQ4QO xzYmtwYWdlXHBnbmNvbnRcc GduZGVjXHBsYWluXHBsYWlu XGYwXGZzMjRccWxccGxhaW5 kTgNmXgVxZTqqQZ1bCDIxH9 rykPWcSVSrLTTwW4pgRiOso K4qrHkwXYwdylZmBUpJLSDG SO3OVMFpRTzWR5LEQOXKPgX UUkFDSEVBTCwgTEVGVCwgU1 HHIQuGBvU0PBUKJhNOUOMCY VxwYXJ9 GROSS DESCRIPTION y4dstWPtDUSnwSVdUzRzIWN (test code = 3366) oPSMvu9oeZWZmqIFwVhGxYc NcZnRuYmpcdWMxXGRlZmYwe 8xhu565kVWvd2jwQRHlVbT9 rZBkRZIodFXzJ018AZOwJIm xp9mch9NvTTIshSHir0G5LF LLmezeaFt1wUgyT88nq0N4T ksgJ9mwCJOdCRZdE2GjIF0h MRSgUgv6ELW9ZHC0GJIlUJC wB3PbWP6iUAGjtHJkLRh2g8 qudFnaNBHbZGA2i4dgZEhvt rJkIX8jib0peOa8c9awkuPx XFWwQHGxkJGRGBTqN3SgvEm nRd6uoAj5yJvzTzhaDZF3Cs c7FN9kmt62vzi8bBwuJMVhm qosDwT4HNjhMUCheqnvPZz2 MFxtYXJnbDcyMFxtYXJncjc yMFxtYXJndDcyMFxtYXJnYj urQLtnEVMoANH9VQnbf467T XI6PHbhv3ptc4vamLMgMjr4 ZTTeXuZkOhgfGVbhx9God0h oZJPxdl2dHAT8lSMyiMliq6 U1lSCsTNMhuMOvwdWqPOBpJ wH9HBneDH7los68KPQiPWY5 ld9xeEPsuWptnxFzxLZjLFt aZ7RrAUEra304XVRcB3AnZR Idx5P7yrQfCcOsSUXrpXZ9q xR1RDHtEBm1gEOkpoK1ntDi lJFwH2knuX13VlGfwSOtW9C xuR12ErDrrMZpL2FgxG99Oh OmcPFnR1TapC72NoMagJYkQ VHrxRXaYe6mkDEmkSQry7Eu dVYrXGniW37og222KGBzsqT mO7gmmRWqrazatAAlrawyIY uvanM2QBZlHNTzVWdxZQVlO GZzMjJcbGFuZzEwMzNcaGlj jLinDTmvMxVdHNIqKZzgM2t cZjFcZnMyMiAzNSBtbHMgaW 6oN5w5q1YxU5jwukLkPyCaK RZ7gA1ecOmqbojrZ8MmgGEi xZ2tl7sjYSPjE83foNCgyTT kOiAwNjIzMjBccGFyIFJlY2 VpdmVkOiAwNjIzMjBccGFyf Q== SPECIAL STUDIES (test u6eomCYyXLNqkIXuPbQsOQP code = 3376) gRNKas2ebLDTsjYCqShTiDr NcZnRuYmpcdWMxXGRlZmYwe 7ktn350hPDpl8vaKZNwLvC3 eMEuRVOmiQLiH693LVUiOTk qh0rdh7IpWSJbkWXgh4N6WP WBNZigHpTfB905IOWxVZjsg 8uzr4ZyZMEbkHWcn3Z1JZOE lkbzePr2aHicK62if6U6Qzk dT8ksOMFiPPHvM9BySE7xXX CrKkc1NBV1YAG1PJFcUHDaV 0IoHP5wGHNlwRYxMBw8w0vd zWmwKUNkOHS5q9hdYLqajcH 3LT9rqg7qyQb6y1zwclJoKE VkGOGvnDRTUBNwF7LscLguQ q0zfLt5f2nwNggpxwH0rDEu ZjBcZnMyMFxsaTBccmkwIEN hBDX9nBHNZBz6D973w4bdLS EudxAzdZiXtqjti8zcP465Y HBhcGVydzEyMjQwXHBhcGVy nFF9EDSpCW2wpfwlEnWsHT7 mvkbaEpLaIA5zles6NoGzNQ 1hcmdiNzIwXGhlYWRlcnkwX TAfi5RxlfapXR9oE1Kwb6W0 nG3siCYeTVKgjVEnZeGwDAV rho4iuJCdLUnhJYA6SXMnyo Opf4Onq6jhEqJvlaRmU7osX 2JyZHJoZWFkXHBnYnJkcmZv o0Tis7JgjRNzbJw9i1hyOTU zLBJbwZbsh6igNTX8SJUeV1 K9bNBwf9vwCUhuNECfpEA3z garYPfuINHiiaD8rxylPXsf ZJJbjFI3xzxbWAtpEHFsIxR 1womnZYrpQNScRFI0LPiow9 09FXC5LUehHsaqAIkjMKGes mNvbnRccGduZGVjXHBsYWlu XHBsYWluXGYwXGZzMjRccWx ntPfeuV7gTkPaYzNyDfccRP 5gXNFrP2elmKNjOAGcYWQcP 6owLyAlyP7bvJbxFTotJwAa ZtCnDrJMhPWhtF76EGVqjrJ 5RPQil23jg5WdhRaonuNeNN EyYGjcF4s8ADFdEKKjPGE8r 5Zty3RcvI1zmM3liWpqcU8p vVPksAU5weiss1Ttp1MsK3j hbCBzdGFpbnMuXHBsYWluXG YxXGZzMjJcbGFuZzEwMzNca GljaFxmMVxkYmNoXGYxXGxv A4lgJlPaQ1BfENYnFiLxrWH tG4berCRqBGVtxzzluEXtzi xmMVxmczIyXGxhbmcxMDMzX UcdH3ccRaMaXWXrbSbiEBie g0HaZDSnODXeLyahvzDjJNQ prfMfb2ykJ9lrTDHoEVX6ZR 2sdlUgNuEiSG6ltC66d2Dni 00uk08dfX0agUGexkXmN07h vMXccQIxg1ItAYZsdrPcoLU 7USZyIAakcjurv4z7fQC5rW VzyTVcdLW7dEXikTTbOEZCl IPrMKKkn033si5qAZXboDHv uaFubC7kNLlbvjpszMLhRI9 hQJInMKHpCJRuJG48avXfTH 5egYOkh8kwajEjyTImt6Dtm JN3IOWjlCZwgweeBt5yPZ81 EUHgZGhvqI9ycPInwsPdIS3 fWR1qZ6B6bRQtQAIeygDlk4 iaDVjaBJ1rTBMzzVydCdvyD CPfKQXcetGeiEA5IFVhiYbf tZ5pVfLeWtSlBbhdHL4pJSR xE9jxoSGvTJBzHVKiY8agWo UodB4fqFxwDGowTjKaBdWcE tfzcXTfjDwrNJZffXtnuP4o CtYxItAnIdujVN6eGPZtL8i edNFxIJIlYSLjC0glAkQbzJ 9jaFxmMVxjZjJcZnMyMiAgX HBsYWluXGYxXGZzMjJcbGFu ZzEwMzNcaGljaFxmMVxkYmN vAAXfZKemL4gnFrWqM3FaRH TmBuAksDShE5dtaSOvNTQeJ WluXGYxXGZzMjJcbGFuZzEw MzNcaGljaFxmMVxkYmNoXGY xSKbnW4reIsHcI2WhSSVgBy UoBI7lxA6ngVynzW1osHVaz VL0ihexqVDkaU3pM0BjFLAl o4Ngljsak1JeGFNujkYewx8 fMPKooHPJOTpxs1YfE1TmLL a9e1LctMkobZ6sFnFwJnHdD wptJY0eZQIsX3aasXXmREUc BNXpE3ynTmMhvR1obTdvYHx zVgGxPnGfPke5AGJmQuEvPn kyXHBsYWluXGYxXGZzMjJcb GFuZzEwMzNcaGljaFxmMVxk UnUpQBYqNSzjL0mqLtQyH9D nGKSoDbUqzsYYRVEhL1EmGQ PqveUvpkccUFO3gT0vu1q6I RjpGk5nNCRjaynwr8htaqNa jQFmf4TdZZWbboCjp3VgESO ptpUhmZPbNHKtnlRyvm8qeb GoNPMxDJXpS9LdlmuvcAqih zO5SLUpTAOftBJttHidHJIj XMw9GFysddOnf3FhIaRqhvL gcOThfsRcJU1jWIBmzHQxhu EuHVJ5DJVgXCALPuHhWSSwx 6CnJC8eJAVrsZkzZSYlsR6c h6LeMQXdo84iRBLqBYIZFYW gaGFzIGRldGVybWluZWQgdG hmcCXsqWIfJZWvTMYuHU6xT QZibgAovAPis7NxfIQzbbEt k3EhzlNnJOCdFGS4RjQLsAG slPKklZAqxyM1z9YnAIBnou FlwXcskFLtcQJzvFQwr8Wxm o4eUMWro3elsTjbNV4fxDXs ZSByZWdhcmRlZCBhcyBpbnZ lp4ScT6J7oW1rQFjml7MfRa 2lCKGeh3NxcsTfHoVDcGktX TfsIv8xSACowjnkoNGhW2Cp dGlmaWVkIHVuZGVyIHRoZSB WxEgntBBmdRQXGJEyvmU7o8 X2OFqniEYuknXxDV47XZVpP B5msEVzxNHmk9KeGJl5JECi M6tCIC42QGbcBIOkxDMziKm oqVKeSKThGEUnekOxid1xtH jbqUQte78dfOD5mJJ3OJRhl U7aH4DqWBpsWo1kSSWsyrlr cSEnuQeoFn5yzRohmM2pHjI ySiNyOgsrWY6uQJWzL9rhtB HeKZZdBYAtA5muClMfrJ8xj FxmMlxmczIyXHBhclxwYXJk XHBsYWluXGYwXGZzMjRccGx ibY8mHbLbAcJdMXbvVJA8 Gross assessment was [facility]'s performed at [facility], code = 2777) Department of Pathology, [address] [place] [id number], Technical component [facility] was performed at ([facility], code = 2778) Department of Pathology, [address] [place] [address], Professional component [facility] was performed at ([facility], code = 2779) Department of Pathology, [address] [place] [address], [facility] BY [id number] 17:36:00 Medical Cytology Report Case: [id number] Authorizing Provider: Keo Hodges MD Collected: 11/03/2019 02:24 PM [facility] Received: 11/03/2019 04:00 PM SERVICES Pathologist: Barry Metzger MD Specimen: Lymph Node, Lower Paratracheal, Left, Station 4L LYMPH NODE, LOWER PARATRACHEAL, LEFT, STATION 4L EBUS FNA BY CLINICIAN (CYTOSPINS AND CELL BLOCK OF ASPIRATE): - POSITIVE FOR MALIGNANCY - POORLY DIFFERENTIATED ADENOCARCINOMA Signing Pathologist Direct Phone Line: [phone] signed by Barry Metzger MD on 11/04/2019 at 5:36 PMBased upon the immunohistochemical findings on [id number], this is a primary lung adenocarcinoma.Please see cytopathology cases [id number], 1555, 1556, 1557 and [id number], [id number] pleural effusion, recently discovered lung cancer with suspected metastasis to boneLYMPH NODE, LOWER PARATRACHEAL, LEFT, STATION 4LEBUS FNA35 mls in cytorich red; 2 cytospins, cell blockCollected: [id number]: [id number] interpretation of this case included the use of immunohistochemistry or special stains.Control Slides Examined: In-house known positive controls were evaluated along with the test tissue. These control slidesrun alongside of the patients sample show appropriate staining. Internal positive and negative controls when available are evaluated Immunohistochemistry technical testing was performed at [facility], Pathology Laboratory where it was developed and its performance characteristicswere determined. It has not been cleared or approved by the U.S. Food and Drug Administration. The FDA has determined that such clearance or approval is not necessary. The test is used for clinical purposes. It should not be regarded as investigational or for research. This laboratory is certified under the Clinical Laboratory Improvement Amendments of 1988 (CLIA-88) as qualified to perform high complexity clinical laboratory testing.[facility], Department of Pathology, [address] [place] [address], [facility], [facility] of [facility], [address] [place] [address], [facility], [facility] of Pathology, [address] [place] [address], MBCZ NEEDLE ASPIRATE BY EBUS 2019-11-04 17:34:00Medical Cytology Report Case: [id number] Authorizing Provider: Keo Hodges MD Collected: 11/03/2019 02:12 PM [facility] Received: 11/03/2019 04:00 PM SERVICES Pathologist: Barry Metzger MD Specimen: Lymph Node, Interlobar, Left, Station 11L LYMPH NODE, INTERLOBAR, LEFT, STATION 11L EBUS FNA BY CLINICIAN (CYTOSPINS AND CELL BLOCK OF ASPIRATE): - POSITIVE FOR MALIGNANCY - POORLY DIFFERENTIATED ADENOCARCINOMA Signing Pathologist Direct Phone Line: Based upon the immunohistochemical findings on [id number], this is a primary lung adenocarcinoma.Please see cytopathology cases [id number], 1555, 1556, 1557 and [id number], [id number] pleural effusion, recently discovered lung cancer with suspected metastasis to boneLYMPH NODE, INTERLOBAR, LEFT, STATION 11L EBUS FNA32 mls in cytorich red; 2 cytospins, cell blockCollected: [id number]: [id number] interpretation of this case included the use of immunohistochemistry or special stains.Control Slides Examined: In-house known positive controls were evaluated along with the test tissue. These control slides run alongside of the patients sample show appropriate staining. Internal positive and negative controls when available are evaluated Immunohistochemistry technical testing was performed at [facility], Pathology Laboratory where it was developed and its performance characteristics were determined. It has not been cleared or approved by the U.S. Food and Drug Administration. The FDA has determined that such clearance or approval is not necessary. The test is used for clinical purposes. It shouldnot be regarded as investigational or for research. This laboratory is certified under the Clinical Laboratory Improvement Amendments of 1988 (CLIA-88) as qualified to perform high complexity clinical laboratory testing.[facility], Department of Pathology, [address] [place] [address], [facility], Department of Pathology, [address] [place] [address], [facility], Department of Pathology, [address] [place] [address], [id number] 17:30:00 Test Item Value Reference Range Interpretation Comments Case Report (test code Medical Cytology Report = 104) Case: [id number] Authorizing Provider: Keo Hodges MD Collected: 11/03/2019 01:39 PM [facility] Received: 11/03/2019 02:17 PM SERVICES Pathologist: Barry Metzger MD Specimen: Pleural, Right DIAGNOSIS (test code = [id number]) uZzEwMzNcZnRuYmpcdWMxIH rytqVjDIjlt7PkS7LzVrWuY FxhbnNpXGRlZmxhbmcxMDMz YZK9esSaQLHxPSqxZHFoTGc fFm5kwNUgoBbdUvHjXEPwe2 rzskYOvemgbRg4o5frITLaF fW9fQDlEAfkX3qogoRqdZEs GRTsPUg9nM91RRDguI9efCN jUBrrbiKxEqM1WHptGIFrVh Y6DDOuvAPkDCYsB0liLULgD YkxWSNsVPbccOMrLNP7dLca n7Y3rRZrcJEfhQlySwOwAoK iQCTGz9GtOQv5jNpbX2XbME IuTxM2kSTlVEEuKKofUPWkZ HJhboN3vI08VIgfdkR9oSNs y1Vip95dl899zP0urPViGZX 1WSJtCXBlsLGnHJDiAPG4OP OgfJGxE4x4KjQbmHXeJ9O4U jHgiBUwJ4K3XuBokVHoG3N5 CaAlwPGtJWYrdZZxOo4roOK oqSThyp9ije16RVK8b1UiyD aoDSJ2LPK1MzJhTx0lbWXjL ZMlUD8iJnPhxHYrONTfhh06 kEsfEBduiyAajC1cIoCqKAG woAKjUPNmFN1jtEUwIVTvqT 5ucmxjXHBnYnJkcmhlYWRcc ZpwgiLuPa2brYedVPV1DLla D0zorE2rLqM5EHssU9smpD1 jZFg8JRmtgEL4EUQsxQ2iYV 6qxeegx8xsTeAuYX9lzqmkh 8hvZcFiFL0tlvb5o7zfUeQv IX6aavixg5oaQlLdDDutLAT rmoxlBCQmt7IctvplPCTpa2 UpA1OglXhaX36yyZaeL27nW PDfrDveeX4xiXgmtP6uHzUi ZnMyNFxxbFxwbGFpblxmMVx mczIwXGxhbmcxMDMzXGhpY2 jyJcPpZTYcvWvoPAlib2LpT GYxXGZzMjAgUklHSFQgUExF KDGWXFHINMWVSORvE7hND2L JCM1AOTKFDEXUZKlGBEPDB9 NLKTpcbGluZSAgICAtIFBPU 4kZZPVIADETTnIROHnWP31V HiQLQZCggqQsWDOyTXXDL9R MWSBESUZGRVJFTlRJQVRFRC CPHBYTM5RPSpFZMd6DQTaeH PJobIRduBeewoMkNWxoe2Ad UCcpVWMeKZ5uzRypQWKvZK8 tQYWkF9zieV3mojt1KnObLQ HbRbA4JGJjjxB9Qkz8NMFxH Poxl5mkw7IdQIJrLXb4mHss CcNsHCAoh2fqvlThZsDuYYH cRAAaJZKdoEIiB375m9wgz8 ttmxZpdUC3AUQiXVJ8SNmrd xSkxhR1GGjueRRuFuX8ANkx xsJdGUxfgeBvcsWqHqr0XYF jC003KDQ1nCrte6fcWKR3WP JbUKEvPtPpRu7dqTAhV552S EOfPGJEXKJnkSd6MIWwgaZi hiYhrLHYk209E153b4nlNHH uisEjwZyLonobm1vcT236UJ BhcGVydzEyMjQwXHBhcGVya NF5ZOVnFW3bgogzVEabGWdl ZUQikbE8BGTwoOGgM1ZyOKL hZM3wbrwxAWJ0OOhlAUYhBY C1VbAqCNDta4Usejv6NqXan u9egb66JJT6r3ZmiLrrMHR2 MSL9WdLbOq2iyHFcHJXgTS8 zXgKveCNdKLUrtv06rNyvOL loHWD1NOFvbaNuz7Dbj8bjU nBnmmSjB7lcC8YsMHXtCKKq UCEtQaUtihZqk0Uth5SxxOV auCx9v0gqASJjXNGseOmaj3 lgRWM5XMTjdSGqY8wlrD1gS WWrRH9dtnwen5apKZsvPUrr FNJwhZH1ouF4TSTqcENmX3N rhO3xVKLnFMccEAQjwjr9Cf UkMm3nxGIcvUkbOOuhZufuW WdlXHBnbmNvbnRccGduZGVj XHBsYWluXHBsYWluXGYwXGZ zMjRccWxcbGFuZzEwMzNcaG ljaFxmMVxkYmNoXGYxXGxvY 8ddYsMvRdHlXnu8VFNocTLy RBNeTlx7ZUOspHItDHKTpHi ksA3wPGPueWrbtK1wnTI0LL WkofObpVBRtN2yHCHYeR4fJ hN1ZlZhPhT8BPM1BSJlvERo fX0= COMMENT (test code = k1ddzUMzCMGvvGAwMwEvKHJ 335) yCVSon1caEHFylPMiMiZoRj NcZnRuYmpcdWMxXGRlZmYwe 9nnn299tVSej9fdFBJfRzL3 dRLvYKSgyIRsC660PSAeZYs tg5dna3GlUAZhsDNaf0M9XA LmvcdojHf6nOsqS61ds9Z4J nueD4tdAZXmMGJeQ3EkZQ5u KUZfJvs0RVT6GVE3RPIhIIM vP6PnPV1rGJJjvMEbTMy5x6 btfPblTQPkNWX7k2cjSWphs pGgHD5afj4upEz4a3ntzbPo FPMaQSGalBOAEEQmK9KknCh nFx1tdKe4tClbVpsuOLS5Ov l7DE0muq49rku1aUlvSDVld uonVvU6HCibXZQgmxzmOLa1 MFxtYXJnbDcyMFxtYXJncjc yMFxtYXJndDcyMFxtYXJnYj inHDwxIZInZIA7IUpqx273P KL6KHvhd9lid0odkBMrQiy1 WIBrXaBkLvpoDTpwl6Umo4v aYMWadm9oKUK4eSSzlCmta8 L2dCPmXGVrbYZijzShAJLsA lG1IVjhKG7gfz10JHIdWTL8 pk5jfJIseXgantOtsXMzMUb gU8KdOFCbw055TVGhW5WqXO Ivn0N5ajCkWkBuNLXwkTQ6v cC0SMQpEKz3xJVjtdS6ehTv aFVeW4wsoV98MnFldYDlD1J skP89DeAcmWZjU3NirC89Js MznSZhF0RduO39VgBfbGFcY TYndZQoMy2toIHfiDWpx3Xu nYVpYCefA69go083YTJlxjR uG1fqzDSatamyqNZdiwknCJ gthtZ2IXe5ebSlmjkwnVqqh GFpblxmMVxmczIwXGxhbmcx DNFdWRjsH6olBeSfAQEcgXf hQWgpa5ViAEHxQITcLqRvtD FzVNSxDCLoSLCuSSGtT0k8w 7NfuQoruB0ovAHeYPCeyxSY SxMoPNL4OWmqGKF3ZTuxCMY 6YkbsISV9VUWcecLwMEA1Sd xwYXJ9 CPT Code(s) (test code t7txaLFrSHObrKGaTqXxPHF = 3357) oLULoc6keMQGepUMbUrPlZc NcZnRuYmpcdWMxXGRlZmYwe 0jzz438gFNle4hbTXMiOxU8 hEMyZHYkhGBdY298o5jzd8l ucnKnwUA5VVNnOCG0QAdnac CrmbV7GAiwoODiMcO8WLgem vTgQWzjdaJnyxTfPon4ZJMa V469MGQ7qLzys4paVHX4PEC xNZTqUrXtUw0kcXNtK015OB WhDDULIGVusDz6SOThdrYxo zXluQFBu748U031m2kdPPHq jmOggElTrqdco4meD336ZRX hcGVydzEyMjQwXHBhcGVyaD M7UPHdCL7zkbypWjDbGI6pj dmuRsNkLL1vwbg6TaGzED0s cmdiNzIwXGhlYWRlcnkwXGZ ka0NvntnyOB8aQ7Yin6G8xU 9maXRcZGVmdGFiNzIwXGZvc h2ncFNbANrhv9NgTLF1ebH4 nJYpuABhKVEkLP50Amdoz9F wBfihCHL2MQMpzpBgw7Vsp1 nmYeVbaxErJ9uqL6KaKKGjE BHwKKPmUlRjroApm0Ayh4Xf lSJmuCl8s4nrJNEiXQZxnGi sd6bjSVD7CTPdU2X8oZZpl2 otNLbmDBEhaAZ0ggipAOadP RCztdE7tzskFFroJZXwrRN5 lfdhQOcjUZGzPwG6qdifWLk wEDEsACU7EZhsh220VGJ2PI xzYmtwYWdlXHBnbmNvbnRcc GduZGVjXHBsYWluXHBsYWlu XGYwXGZzMjRccWxccGxhaW5 aQdHeCpWnSZprIQ0gJGXoH8 zxsOUiRRSkLTStD8qeFfMsi H7kbFwdOBsurkKtXSa6YCS5 LQC7XRBgLZaaQWA9 CLINICAL DATA (test j1cnjKUkXPSpmURwPgXgDNU code = 3355) dNFHzz0quDWMmzLAyEuKvTe NcZnRuYmpcdWMxXGRlZmYwe 7tmq003oSFdh3asTJSvPeK4 mLJuIKDvuDAnN581ZBLsQXw jl6yfv3ApGXMycVFmt9D3JH TGqrhjcIc2wZvgN30iq3D6B osnA6ozYMUnJGTnI9GlOB2o SJTcRsn1SRO7DIE8VGDlYSP yL1SvZJ5jEVZwuPWtNZb7k6 ruwHlnHSVqDFX5t3lkPZgwg jHmUN4hmm7hqKq7d0ddzrJx KXViEJEozXESDGRbU4AezRa wSt2ttSf7eCkwCvgdVIV0Jr n3FK0zgj76pcq7iRjlTYFax tnkHgV4ZYmlUNQpkdqhNGc9 MFxtYXJnbDcyMFxtYXJncjc yMFxtYXJndDcyMFxtYXJnYj hwCOnfQYCyDHA9GXhzk260H ZR2OKhli7gja5qyxJOqUkr2 QBJkRdLlTgndOZuzm9Aki0a cEQYgar7hVYP5oHCffVtey2 R8qDOiICDpbVXtvuGeIMEhD xD0PUkjNN5pth23SMNnOJI2 rf1woMYziUytqrTtbDXkTTy jH6FkQYJtb509AYXiT6SyPS Rdk0W2dsZuAgTjNNScjLC8v zR5RUPnUPl6tQJawhZ9rtAa iUEdY1bjxQ63RlTknUBdX4G qoD71FnIjxKFlH4AefF00In KknYOgD9ZfcT52AwDlaICfZ NHawZTiNr4erZNwtHKyc0Lq cJJvKIfgX33ti360MHToavA oQ6goxTFuefinxTBvqzqlHK cusdX6WXJliiDstGcclN5pW kNeLaHfLHsxIL1dCPYtL2zy aOTtJAFgQFQgJ2mlHhMysV8 xyTweDOisqqAdDEQsK2h4UJ JtXNXtRBblFEPmgQUmz75iR TJoW8VedBc7BZQcl2EdwoCo JKPivXPzAsMjBV4nWAMdx4e 9vIWusUPrYJD8PATqyFJ7QR Q2VLDmogR5xsWaw75oHNIsz n0= SPECIMEN SOURCE (test x1zwnVRdYZErnXJjJtWlYDU code = 3377) gQSAje2ayUIVejDIuSiVeUo NcZnRuYmpcdWMxXGRlZmYwe 4vkn147yLFqc0wgJZNbSbL5 eDWhQVCzmFVsM797p0dux8l vjzKplML4THUjPQN7YXqykg CswgN7RAjpdYJiUnK9WMfzs zNqYWevyjYvasLuHyp9SQAc O686ZWJ6xIazf9jcUVS3QAB dZJNiPwKoSm2zzSLwQ266HL KsPEKZBBFnbGd2AKNncrAgr pDoaXWVv656X089f2otACKe ctNjgZbGnxkdw8rvB379CAG hcGVydzEyMjQwXHBhcGVyaD O5DCVgOT1ttcljCyUiDY9tq dzrTuXnAS9othb2AcAaUE0w cmdiNzIwXGhlYWRlcnkwXGZ gt4XwosdkDY6yL8Ghw3R3eQ 9maXRcZGVmdGFiNzIwXGZvc t8njUZkXMigw8GuULN9hcB9 wXVxbPVqNPRjOR04Yifjw9I iNpwoRUV7UBUtrrRgw7Yxq5 ubJrOqxnQnS0stU7YqJHYbW BHwAEGrEiMskrSrg9Dgp9Jk dYXrdHc0d9hhRPXzZBEhmGp wm2xnPOX3SBZmS9J2cMDaj6 hqMZtmDUEpsMM7naokLVryY HQthgS1pkjnDVxkQOKrzAX3 jluwKEwhOECvWbR2qwpgDYt eTDTuKOF7HPlmy895OVP2JL xzYmtwYWdlXHBnbmNvbnRcc GduZGVjXHBsYWluXHBsYWlu XGYwXGZzMjRccWxccGxhaW5 vUvAlMlUiOZfmLA2zMPMlD9 swsQGiLOJgXHJaY1vcYsBff I0txMinZLyfyhVeRVBJC5xO IFBMRVVSQUwgRkxVSURccGF yfQ== GROSS DESCRIPTION m1ecuOFbNNUmbYGwAeAkNCG (test code = 3366) bDXNfw4kjBZSmhIZfOpUwDk NcZnRuYmpcdWMxXGRlZmYwe 1prz841eCAva6ujHOGqPlR0 cFItLPEacMPpZ583FPCvDJk aw7bxa7RgLNMtuYUsc0N3RZ KXtwjvdAm6jDzqL52ph6Z5H hhuC7miDOTlCZHcR6ImMA2u XUXbKjx1XWW5SVG0MOWwJZV iW3XsOY6vRADitJHlFQa7t8 smdTejLCLwJLJ9t0zxIEmcf kNjHH3thn6jlVk7h9axrrDi HJVfCEHevJMFMZMtD3PbkYj hYn1bhTz5kUhmRvqpSYE9Cr t3LS4ggi19yol3dOfuCHYnx dspYyF8HPhnMPCiahhvVAk9 MFxtYXJnbDcyMFxtYXJncjc yMFxtYXJndDcyMFxtYXJnYj irNOywQLTpMLO7YSoio987A VC2ZRiie8rxv3uyxCWdKjz0 NAEuIsCxGmtrOJygh7Kkj6l sQHMpur3oIYF3nLQenJqlw1 D0lOYwPIArlAXnbdFlYQLaY hR2XBkzMG8lef11NMUlLKB4 fn5wgEVxlWtpcvIrmOMeXUs xI7OdZWBfl679ACXhA4PuME Oxv0S4irAlIvZcWKAacGR4s bN2IREjWAh9pJQmzhT1azIh nIVeW7ivtT96BcWaiCZmA3A waH61ChVeyAUbO3ZjfZ76Bc PomBFsS6LsjR69AvRjkQSdS XAlnGTuZl4meKYwuMJkn0Va sGBkGBxhA36kz017BZXlgdS zE9typSWymlnuqYDhjsruYZ lfrpQ1NJDbUFQkCVsiOJJtQ GZzMjJcbGFuZzEwMzNcaGlj pOjhJRoiPhGgYCPbROeuB5d oIiFqXpMgUpYiRWKuDJ4tpf X6RCdcj9hhKul5xLTeoG7yH qIus5L0zVKoWgB2QQE7yD1t cEevwjuvD2VlfGSdvZ8kk1g rKDWtE56lbINasFTxYoKmLk DeSqAgqPDbMKSgS9LjlzKcF iAwNjIzMjBccGFyfQ== STATEMENT OF ADEQUACY Satisfactory (test code = 2757) Gross assessment was [facility] performed at ([facility], code = 2777) Department of Pathology, [address] [place] [address], Technical component [facility] was performed at ([facility], code = 2778) Department of Pathology, [address] [place] [address], Professional component [facility] was performed at ([facility], code = 2779) Department of Pathology, [address] [place] [address], [facility] 17:30:00Medical Cytology Report Case: [id number] Aut horizing Provider: Keo Hodges MD Collected: 11/03/2019 01:39 PM [facility] Received: 11/03/2019 02:17 PM SERVICES Pathologist: Barry Metzger MD Specimen: Pleural, Right RIGHT PLEURAL FLUID (CYTOSPINS AND CELL BLOCK): - POSITIVE FOR MALIGNANCY - POORLY DIFFERENTIATED ADENOCARCINOMASigning Pathologist Direct Phone Line: [phone] signed by Barry Metzger MD on 11/04/2019 at 5:30 PMPlease see cytopathology cases [id number], 1555, 1556, 1561 and [id number], [id number] pleural effusion, recently discovered lung cancer with suspected metastasis to boneRIGHT PLEURAL [id number] mls yellow fluid in 2 bottles; 4 cytospins, cell blockCollected: [id number]: 622 20SatisfactoryB[facility], [facility] of [facility]ology, [address] [place] [address], [facility]qhvdcEmanate [facility], [facility] of [facility]ology, [address] [place] [address], DjezqcEmanate Health/[facility], Department of Pathology,[address] [place] [address], IXJO NEEDLE ASPIRATE BY EBUS 2019-11-04 17:28:00Medical Cytology Report Case: [id number] Authorizing Provider: Keo Hodges MD Collected: 11/03/2019 01:59 PM [facility] Received: 11/03/2019 02:17 PM SERVICES Pathologist: Barry Metzger MD Specimen: Lymph Node, Subcarinal, Station 7 LYMPH NODE, SUBCARINAL, STATION 7 EBUS FNA BY CLINICIAN (DIRECT SMEARS AND CELL BLOCK OF ASPIRATE): - POSITIVE FOR MALIGNANCY - POORLY DIFFERENTIATED ADENOCARCINOMA Signing Pathologist Direct Phone Line: Based upon the immunohistochemical findings on Case [id number], this is a primary lung adenocarcinoma.Please see cytopathology cases [id number], 1556, 1557, 1561 and [id number], 69092, 85863Snkch pleural effusion, recently discovered lung cancer with suspected metastasis to boneLYMPH NODE, SUBCARINAL, STATION 7 EBUS FNA40 mlsin cytorich red; 7 direct smear slides, cell blockCollected: [id number]: [id number] CLUSTER OF MALIGNANT CELLS (12:26PM, [place])The interpretation of this case included the use of immunohistochemistry or special stains.Control Slides Examined: In-house known positive controls were evaluated along with the test tissue. These control slides run alongside of the patients sample show appropriate staining. Internal positive and negative controls when available are evaluated Immunohistochemistry technical testing was performed at [facility], Pathology Laboratory where it was developed and its performance characteristics were determined. It has not been cleared or approved by the U.S. Food and Drug Administration. The FDA has determined that such clearance or approval is not necessary. The test is used for clinical purposes. It should not be regarded as investigational or for research. This laboratory is certified under the Clinical Laboratory Improvement Amendments of 1988 (CLIA-88) as qualified to perform high complexity clinical laboratory testing.[facility], Department of Pathology, [address] [place] [address], UvqzcgEmanate Health/[facility], Department of Pathology, [address] [place] [address], Tel BE[facility], Department of Pathology, [address] [place] [address], EMCZ NEEDLE ASPIRATE BY [id number] 17:24:00Medical Cytology Report Case: [id number] Authorizing Provider: Keo Hodges MD Collected: 11/03/2019 02:01 PM [facility] Received: 11/03/2019 02:17 PM SERVICES Pathologist: Barry Metzger MD Specimen: Lymph Node, Lower Paratracheal, Right, Station 4R LYMPH NODE, LOWER PARATRACHEAL, RIGHT, STATION 4R EBUS FNA BY CLINICIAN (DIRECT SMEARS AND CELL BLOCK OF ASPIRATE): - POSITIVE FOR MALIGNANCY POORLY DIFFERENTIATED ADENOCARCINOMA Signing Pathologist Direct Phone Line: [phone] signed by Barry Metzger MD on 11/04/2019 at 5:24 PMBased upon immunohistochemical findings on [id number], this is a lung primary adenocarcinoma.Please see cytopathology cases [id number], 1556, 1557, 1561 and [id number], 70121, 95839Hkqiu pleural effusion, recently discovered lung cancer with suspected metastasis to boneLYMPH NODE, LOWER PARATRACHEAL, RIGHT, STATION 4R EBUS FNA35 mls in cytorich red; 2 direct smear slides, cell blockCollected: [id number]: [id number] CELLS WITH ABUNDANT NECROSIS, FAVOR NON-SMALL CELL CARCINOMA (14:26PM, [place])The interpretation of this case included the use of immunohistochemistry or special stains.Control Slides Examined: In-house known positive controls were evaluated along with the test tissue. These control slides run alongside of the patients sample show appropriate staining. Internal positive and negative controls when available are evaluated Immunohistochemistry technical testing was performed at [facility], Pathology Laboratory where it was developed and its performance characteristics were determined. It has not been cleared or approved by the U.S. Food and Drug Administration. The FDA has determined that such clearance or approval is not necessary. The test is used for clinical purposes. It should not be regarded as investigational or for research. This laboratory is certified under the Clinical Laboratory Improvement Amendments of 1988 (CLIA-88) as qualified to perform high complexity clinical laboratory testing.[facility], Department of Pathology, [address] [place] [address], ZlboknEmanate Health/[facility], Department of Path ology, [address] [place] [address], VjnrlrEmanate Health/[facility] of the [facility], Department of Pathology, [address] [place] [address], Stfx fluid [id number] 17:17:00 Test Item Value Reference Range Interpretation Comments Body Fluid Crystals No crystals seen. (test code = 5781-0) Pathologist: (test code Norma Mead MD = 2607) (electronic signature) [facility] CenterBODY FLUID [id number] 17:17:00 Test Item Value Reference Range Interpretation Comments CRYSTALS, BODY FLUID No crystals seen. (BEAKER) (test code = 2165) [id number] Norma Mead MD (BEAKER) (test code = (electronic signature) 2607) ABORIsadora, [id number] 09:38:00 Test Item Value Reference Range Interpretation Comments ABO Grouping (test code = 2588) A Rh Factor (test code = 2589) NEG [facility] CenterComprehensive metabolic [id number] 08:33:00 Test Item Value Reference Range Interpretation Comments Protein, Total (test 6.6 6.0- 8.3 gm/dL code = 2885-2) Albumin (test code = 3.3 g/dL 3.5-5 L 59433-8) Alkaline Phosphatase 94 U/L 40-150 (test code = 6768-6) Total Bilirubin (test 0.5 mg/dL 0.2-1.2 code = 1975-2) Sodium (test code = 129 meq/L 136-145 L 2951-2) Potassium (test code = 3.5 meq/L 3.5-5.1 2823-3) Chloride (test code = 97 meq/L 98-107 L 2075-0) CO2 (test code = 23 meq/L 22-29 2028-9) BUN (test code = 9 mg/dL 7-21 3094-0) Creatinine (test code 0.68 mg/dL 0.57-1.25 = 2160-0) Glucose (test code = 85 mg/dL 70-105 2345-7) Calcium (test code = 8.1 mg/dL 8.4-10.2 L 70799-9) AST (test code = 16 U/L 5-34 1920-8) ALT (test code = 9 U/L 6-55 1742-6) EGFR (test code = 111 mL/min/1.73 [place] [address]-4) NOT ACCURATE CREATININE CLEARANCE IN PREDICTING GLOMERULAR FILTRATION RATE . ESTIMATED GFR I S NOT APPLICABLE FOR DIALYSIS PATIENTS. CHRISTINA (test code = CHRISTINA) Research Physiologist ID - JERSON B Lab Interpretation Abnormal (test code = 32637-5) [facility] CenterPHOSPHORUS2020-06-24 08:33:00 Test Item Value Reference Range Interpretation Comments PHOSPHORUS (BEAKER) (test code = 2.9 mg/dL 2.3-4.7 604) Research Physiologist ID - JERSON [id number] 08:33:00 Test Item Value Reference Range Interpretation Comments MAGNESIUM (BEAKER) (test code = 2.1 mg/dL 1.6-2.6 627) Research Physiologist ID - JERSON BCOMPREHENSIVE METABOLIC [id number] 08:33:00 Test Item Value Reference Range Interpretation Comments TOTAL PROTEIN 6.6 gm/dL 6.0-8.3 (BEAKER) (test code = 770) ALBUMIN (BEAKER) 3.3 g/dL 3.5-5.0 L (test code = 1145) ALKALINE PHOSPHATASE 94 U/L 40-150 (BEAKER) (test code = 346) BILIRUBIN TOTAL 0.5 mg/dL 0.2-1.2 (BEAKER) (test code = 377) SODIUM (BEAKER) (test 129 meq/L 136-145 L code = 381) POTASSIUM (BEAKER) 3.5 meq/L 3.5-5.1 (test code = 379) CHLORIDE (BEAKER) 97 meq/L 98-107 L (test code = 382) CO2 (BEAKER) (test 23 meq/L 22-29 code = 355) BLOOD UREA NITROGEN 9 mg/dL 7-21 (BEAKER) (test code = 354) CREATININE (BEAKER) 0.68 mg/dL 0.57-1.25 (test code = 358) GLUCOSE RANDOM 85 mg/dL 70-105 (BEAKER) (test code = 652) CALCIUM (BEAKER) 8.1 mg/dL 8.4-10.2 L (test code = 697) AST (SGOT) (BEAKER) 16 U/L 5-34 (test code = 353) ALT (SGPT) (BEAKER) 9 U/L 6-55 (test code = 347) EGFR (BEAKER) (test 111 ESTIMATE D GFR IS code = 1092) mL/min/1.73 sq NOT ACCURA TE m CREATININE CLEARANCE IN PREDICTING GLOMERULAR FILTRATION RATE . ESTIMATED GFR I S NOT APPLICABLE FOR DIALYSIS PATIEN TS. Research Physiologist ID - JERSON BType and screen, [id number] 07:52:00 Test Item Value Reference Range Interpretation Comments ABO/RH AUTOMATED (BEAKER) (test A NEGATIVE code = 7690) Ab Scrn (test code = 890-4) NEGATIVE [facility] W/PLT COUNT & AUTO [id number] 07:25:00 Test Item Value Reference Range Interpretation Comments WHITE BLOOD CELL COUNT (BEAKER) 9.1 K/ L 3.5-10.5 (test code = 775) RED BLOOD CELL COUNT (BEAKER) 3.64 M/ L 4.63-6.08 L (test code = 761) HEMOGLOBIN (BEAKER) (test code = 10.4 GM/DL 13.7-17.5 L 410) HEMATOCRIT (BEAKER) (test code = 31.6 % 40.1-51.0 L 411) MEAN CORPUSCULAR VOLUME (BEAKER) 86.8 fL 79.0-92.2 (test code = 753) MEAN CORPUSCULAR HEMOGLOBIN 28.6 pg 25.7-32.2 (BEAKER) (test code = 751) MEAN CORPUSCULAR HEMOGLOBIN CONC 32.9 GM/DL 32.3-36.5 (BEAKER) (test code = 752) RED CELL DISTRIBUTION WIDTH 13.3 % 11.6-14.4 (BEAKER) (test code = 412) PLATELET COUNT (BEAKER) (test 204 K/CU MM 150-450 code = 756) MEAN PLATELET VOLUME (BEAKER) 9.0 fL 9.4-12.4 L (test code = 754) NUCLEATED RED BLOOD CELLS 0 /100 WBC 0-0 (BEAKER) (test code = 413) NEUTROPHILS RELATIVE PERCENT 81 % (BEAKER) (test code = 429) LYMPHOCYTES RELATIVE PERCENT 10 % (BEAKER) (test code = 430) MONOCYTES RELATIVE PERCENT 7 % (BEAKER) (test code = 431) EOSINOPHILS RELATIVE PERCENT 1 % (BEAKER) (test code = 432) BASOPHILS RELATIVE PERCENT 0 % (BEAKER) (test code = 437) NEUTROPHILS ABSOLUTE COUNT 7.34 K/ L 1.78-5.38 H (BEAKER) (test code = 670) LYMPHOCYTES ABSOLUTE COUNT 0.92 K/ L 1.32-3.57 L (BEAKER) (test code = 414) MONOCYTES ABSOLUTE COUNT (BEAKER) 0.65 K/ L 0.30-0.82 (test code = 415) EOSINOPHILS ABSOLUTE COUNT 0.12 K/ L 0.04-0.54 (BEAKER) (test code = 416) BASOPHILS ABSOLUTE COUNT (BEAKER) 0.02 K/ L 0.01-0.08 (test code = 417) IMMATURE GRANULOCYTES-RELATIVE 0 % 0-1 PERCENT (BEAKER) (test code = 2801) CALCIUM, [id number] 07:19:00 Test Item Value Reference Range Interpretation Comments CALCIUM IONIZED (BEAKER) (test 1.07 mmol/L 1.12-1.27 L code = 698) PH, BLOOD (BEAKER) (test code = 7.41 1810) MR, SPINE, CERVICAL, [id number] 22:26:00FINAL REPORT MR, SPINE, CERVICAL, WITH \T\ WITHOUT CONTRAST INDICATION: Neck pain, abnormal neuro exam TECHNIQUE: Multiplanar, multisequence MR imaging of the cervical spine was performed with and without intravenous contrast. COMPARISON: None. FINDINGS: Cord: Grossly preserved caliber. Focal hyperintensity on T2-weighted images at the C5 level. Osseous structures: Normal height and signal intensity of the cervical vertebrae. There is grade 1 retrolisthesis of C5 on C6. Degener ative facet changes are present at all levels. The craniocervical junction is normal. No abnormal postcontrast enhancement. Discs: Disc desiccation is present at multiple levels. Findings by level:C2/C3: Severe left foraminal stenosis. The right neural foramen is patent. Mild canal narrowing. C3/C4: Degenerative disc disease creating moderate canal narrowing. Moderate bilateral foraminal stenosis. C4/C5: Asymmetric endplate changes in the right paracentral region. Moderate left foraminal stenosis. C5/C6: Moderate canal narrowing. Severe bilateral foraminal stenosis. C6/C7: No canal or foraminal narrowing. C7/T1: No canal or foraminal narrowing. Soft tissues: Paraspinal soft tissues are unremarkable. IMPRESSION: Focal signal abnormality at the C5 vertebral body concerning for early myelopathicchange. Degenerative changes throughout the cervical spine. Severe left foraminal stenosis is present at C2-3. Severe bilateral foraminal stenosis is present at C5-6 where there is grade 1 retrolisthesis of C5 on C6. Signed: JR Iverson Robert MDReport Verified Date/Time: 11/03/2019 22:26:01 Reading Location: [facility] C0[facility] Neuro Reading Room cervical spine without & with IV [id number] 22:26:00Interface, External Ris In - 11/03/2019 10:29 PM CDTFINAL REPORT MR, SPINE, CERVICAL, WITH \T\ WITHOUT CONTRAST INDICATION: Neck pain, abnormal neuro exam TECHNIQUE: Multiplanar,multisequence MR imaging of the cervical spine was performed with and without intravenous contrast. COMPARISON: None. FINDINGS: Cord: Grossly preserved caliber. Focal hyperintensity on T2-weighted images at the C5 level. Osseous structures: Normal height and signal intensity of the cervical vertebrae.There is grade 1 retrolisthesis of C5 on C6. Degenerative facet changes are present at all levels. The craniocervical junction is normal. No abnormal postcontrast enhancement. Discs: Disc desiccation is present at multiple levels. Findings by level:C2/C3: Severe left foraminal stenosis. The right neural foramen is patent. Mild canal narrowing. C3/C4: Degenerative disc disease creating moderate canal narrowing. Moderate bilateral foraminal stenosis. C4/C5: Asymmetric endplate changes in the right paracentral region. Moderate left foraminal stenosis. C5/C6: Moderate canal narrowing. Severe bilateralforaminal stenosis. C6/C7: No canal or foraminal narrowing. C7/T1: No canal or foraminal narrowing.Soft tissues: Paraspinal soft tissues are unremarkable. IMPRESSION: Focal signal abnormality at the C5 vertebral body concerning for early myelopathic change. Degenerative changes throughout the cervical spine. Severe left foraminal stenosis is present at C2-3. Severe bilateral foraminal stenosis ispresent at C5-6 where there is grade 1 retrolisthesis of C5 on C6. Signed: JR Iverson Robert MDReport Verified Date/Time: 11/03/2019 22:26:01 Reading Location: [facility] B1 C013V Neuro [facility] [id number] 21:26:00 Anesthesia:->NoneDeos the patient have an implanted electronic device?->No FINAL REPORT MR, BRAIN WITH IV CONTRAST INDICATION: Headache, acute, normal neuro exam TECHNIQUE: Multiplanar, multisequence MR imaging of the brain was obtained before and afteruneventful administration of gadolinium contrast. COMPARISON: October 31, 2019 FINDINGS:Limited by motion artifact. In comparison to the prior examination, and in the presence of postcontrast imaging, no metastatic disease is identified in the brain parenchyma. There is no midline shift or hydrocephalus. IMPRESSION: No abnormal postcontrast enhancement is identified. Signed: JR Iverson Robert MD Report Verified Date/Time: 11/03/2019 21:26:45 Reading Location: [address] Neuro Reading Room MR brain with IV [id number] 21:26:00Interface, External Ris In - 11/03/2019 9:29 PM CDTFINAL REPORT MR, BRAIN WITH IV CONTRAST INDICATION: Headache, acute, normal neuro exam TECHNIQUE: Multiplanar, multisequence MR imaging of the brain was obtained before and after uneventful administration of gadolinium contrast. COMPARISON: October 31, 2019 FINDINGS:Limited by motion artifact. In comparison to the prior examination, and in the presence of postcontrast imaging, no metastatic disease is identified in the brain parenchyma. There is no midline shift or hydrocephalus. IMPRESSION: No abnormal postcontrast enhancement is identified. Signed: JR Iverson Robert MDReport Verified Date/Time: 11/03/2019 21:26:45 Reading Location: [address] [facility] [id number] 17:00:00 Test Item Value Reference Range Interpretation Comments Cytology (test code = See Separate Report 2629) [facility] [id number] 17:00:00 Test Item Value Reference Range Interpretation Comments CYTOLOGY RESULT POINTER See Separate Report (BEAKER) (test code = 2629) [facility] FNA [id number] 17:00:00 Test Item Value Reference Range Interpretation Comments CYTOLOGY RESULT POINTER See Separate Report (BEAKER) (test code = 2629) Body fluid cell count with [id number] 16:12:00 Test Item Value Reference Range Interpretation Comments Appearance (test code = Slightly Hazy Clear A 9335-1) Color (test code = 6824-7) Yellow Colorless, Straw A RBCs (test code = 78898-6) 1000 <=1 /cu mm H Adjusted WBC Count (test code 535 <=5 /cu mm H = 28351-9) Lining Cells (test code = 11 <=1 /cu mm H 98519-2) % Segs (test code = 54436-1) 9 % % Lymphs (test code = 36716-4) 63 % % Monos (test code = 29675-2) 15 % % Eos (test code = 74474-9) 13 % % Baso (test code = 21715-5) 0 % Container Body Fluid (test EDTA Tube code = 2873) Lab Interpretation (test code Abnormal = 98926-5) [facility] WITH [id number] 16:12:00 Test Item Value Reference Range Interpretation Comments APPEARANCE FLUID (BEAKER) Slightly Hazy Clear A (test code = 510) COLOR FLUID (BEAKER) (test Yellow Colorless, Straw A code = 511) RBC FLUID (BEAKER) (test code 1000 /cu mm <=1 H = 513) ADJUSTED WBC FLUID (BEAKER) 535 /cu mm <=5 H (test code = 1691) LINING CELLS (BEAKER) (test 11 /cu mm <=1 H code = 1590) NEUTROPHILS FLUID (BEAKER) 9 % (test code = 1656) LYMPHS FLUID (BEAKER) (test 63 % code = 488) MONO/MACROPHAGE FLUID (BEAKER) 15 % (test code = 489) EOSINOPHILS FLUID (BEAKER) 13 % (test code = 491) BASO FLUID (BEAKER) (test code 0 % = 492) CONTAINER BODY FLUID (BEAKER) EDTA Tube (test code = 2873) CYTOLOGY [id number] 16:00:00 Test Item Value Reference Range Interpretation Comments Cytology (test code = See Separate Report 2629) [facility] [id number] 16:00:00 Test Item Value Reference Range Interpretation Comments CYTOLOGY RESULT POINTER See Separate Report (BEAKER) (test code = 2629) [facility] FNA [id number] 16:00:00 Test Item Value Reference Range Interpretation Comments CYTOLOGY RESULT POINTER See Separate Report (BEAKER) (test code = 2629) [facility] FNA [id number] 16:00:00 Test Item Value Reference Range Interpretation Comments CYTOLOGY RESULT POINTER See Separate Report (BEAKER) (test code = 2629) CYTOLOGY [id number] 16:00:00 Test Item Value Reference Range Interpretation Comments CYTOLOGY RESULT POINTER See Separate Report (BEAKER) (test code = 2629) Lactate dehydrogenase (LDH)2019-11-03 14:27:00 Test Item Value Reference Range Interpretation Comments LDH (test code = 2532-0) 175 U/L 125-220 CHRISTINA (test code = CHRISTINA) Research Physiologist ID - ANDREA F Lab Interpretation (test Normal code = 70555-3) [facility] ([facility]H)2019-11-03 14:27:00 Test Item Value Reference Range Interpretation Comments LACTATE DEHYDROGENASE (BEAKER) (test 175 U/L 125-220 code = 635) Research Physiologist ID - ANDREA FBASIC METABOLIC [id number] 05:28:00 Test Item Value Reference Range Interpretation Comments SODIUM (BEAKER) 127 meq/L 136-145 L (test code = 381) POTASSIUM (BEAKER) 3.4 meq/L 3.5-5.1 L (test code = 379) CHLORIDE (BEAKER) 93 meq/L 98-107 L (test code = 382) CO2 (BEAKER) (test 24 meq/L 22-29 code = 355) BLOOD UREA NITROGEN 8 mg/dL 7-21 (BEAKER) (test code = 354) CREATININE (BEAKER) 0.69 mg/dL 0.57-1.25 (test code = 358) GLUCOSE RANDOM 82 mg/dL 70-105 (BEAKER) (test code = 652) CALCIUM (BEAKER) 8.5 mg/dL 8.4-10.2 (test code = 697) EGFR (BEAKER) (test 109 mL/min/1.73 ESTIM ATED GFR IS code = 1092) sq m NOT ACCURATE CREATININE CLEARANCE IN PREDICTING GLOMERULAR FILTRATION RATE . ESTIMATED GFR I S NOT APPLICABLE FOR DIALYSIS PATIEN TS. Research Physiologist ID - LESLI LProthrombin time/[id number] 04:32:00 Test Item Value Reference Range Interpretation Comments Protime (test code = 14.9 11.9- 14.2 H 5902-2) seconds INR (test code = 1.2 <=5.9 6301-6) CHRISTINA (test code = CHRISTINA) Effective 10/08/2018: PT Reference Range ChangeNew: 11.9-14.2 Previous: 11.7-14.7 RECOMMENDED COUMADIN/WARFARIN INR THERAPY RANGESSTANDARD DOSE: 2.0-3.0 Includes: PROPHYLAXIS for venous thrombosis, systemic embolization; TREATMENT for venous thrombosis and/or pulmonary embolus.HIGH RISK: Target INR is 2.5-3.5 for patients wiht mechanical heart valves. Lab Interpretation Abnormal (test code = 22466-0) [facility]PTT[facility] 04:32:00 Test Item Value Reference Range Interpretation Comments PTT (test code = 73388-2) 37.4 22.5- 36.0 seconds H Lab Interpretation (test code = Abnormal 91741-1) [facility] CenterPROTHROMBIN TIME/[id number] 04:32:00 Test Item Value Reference Range Interpretation Comments PROTIME (BEAKER) (test code = 14.9 seconds 11.9-14.2 H 759) INR (BEAKER) (test code = 370) 1.2 <=5.9 Effective 10/08/2018: PT Reference Range ChangeNew: 11.9-14.2 Previous: 11.7- 14.7RECOMMENDED COUMADIN/WARFARIN INR THERAPY RANGESSTANDARD DOSE: 2.0-3.0 Includes: PROPHYLAXIS for venous thrombosis, systemic embolization; TREATMENT for venous thrombosis and/or pulmonary embolus.HIGH RISK: Target INR is2.5-3.5 for patients wiht mechanical heart valves.[id number] 04:32:00 Test Item Value Reference Range Interpretation Comments PARTIAL THROMBOPLASTIN TIME 37.4 seconds 22.5-36.0 H (BEAKER) (test code = 760) CBC W/PLT COUNT & AUTO [id number] 04:25:00 Test Item Value Reference Range Interpretation Comments WHITE BLOOD CELL COUNT (BEAKER) 7.8 K/ L 3.5-10.5 (test code = 775) RED BLOOD CELL COUNT (BEAKER) 3.52 M/ L 4.63-6.08 L (test code = 761) HEMOGLOBIN (BEAKER) (test code = 10.2 GM/DL 13.7-17.5 L 410) HEMATOCRIT (BEAKER) (test code = 30.6 % 40.1-51.0 L 411) MEAN CORPUSCULAR VOLUME (BEAKER) 86.9 fL 79.0-92.2 (test code = 753) MEAN CORPUSCULAR HEMOGLOBIN 29.0 pg 25.7-32.2 (BEAKER) (test code = 751) MEAN CORPUSCULAR HEMOGLOBIN CONC 33.3 GM/DL 32.3-36.5 (BEAKER) (test code = 752) RED CELL DISTRIBUTION WIDTH 13.3 % 11.6-14.4 (BEAKER) (test code = 412) PLATELET COUNT (BEAKER) (test 189 K/CU MM 150-450 code = 756) MEAN PLATELET VOLUME (BEAKER) 8.8 fL 9.4-12.4 L (test code = 754) NUCLEATED RED BLOOD CELLS 0 /100 WBC 0-0 (BEAKER) (test code = 413) NEUTROPHILS RELATIVE PERCENT 75 % (BEAKER) (test code = 429) LYMPHOCYTES RELATIVE PERCENT 14 % (BEAKER) (test code = 430) MONOCYTES RELATIVE PERCENT 9 % (BEAKER) (test code = 431) EOSINOPHILS RELATIVE PERCENT 2 % (BEAKER) (test code = 432) BASOPHILS RELATIVE PERCENT 0 % (BEAKER) (test code = 437) NEUTROPHILS ABSOLUTE COUNT 5.82 K/ L 1.78-5.38 H (BEAKER) (test code = 670) LYMPHOCYTES ABSOLUTE COUNT 1.11 K/ L 1.32-3.57 L (BEAKER) (test code = 414) MONOCYTES ABSOLUTE COUNT (BEAKER) 0.68 K/ L 0.30-0.82 (test code = 415) EOSINOPHILS ABSOLUTE COUNT 0.12 K/ L 0.04-0.54 (BEAKER) (test code = 416) BASOPHILS ABSOLUTE COUNT (BEAKER) 0.02 K/ L 0.01-0.08 (test code = 417) IMMATURE GRANULOCYTES-RELATIVE 0 % 0-1 PERCENT (BEAKER) (test code = 2801) ECG 12 [id number] 13:10:45Interface, External Ris In - 11/02/2019 1:10 PM CDTVentricular Rate 68 BPMAtrial Rate 68 BPMP-R Interval 202 msQRS Duration 166 msQ-T Interval 452 msQTC Calculation(Bazett) 480 msP [place] 79 degreesR [place] -65 degreesT [place] 24 degreesNormal sinus rhythmLeft axis deviationRight bundle branch blockProlonged QTAbnormal ECGWhen compared with ECG of 02-NOV-2019 08:26,No significant changesConfirmed by MD XU, JONY ([id number]) on 11/02/2019 1:10:44 [facility]MAGN[facility]UM2020-[facility] 07:16:00 Test Item Value Reference Range Interpretation Comments MAGNESIUM (BEAKER) (test code = 2.0 mg/dL 1.6-2.6 627) Research Physiologist ID - PIAYA LBASIC METABOLIC [id number] 07:16:00 Test Item Value Reference Range Interpretation Comments SODIUM (BEAKER) 130 meq/L 136-145 L (test code = 381) POTASSIUM (BEAKER) 3.5 meq/L 3.5-5.1 (test code = 379) CHLORIDE (BEAKER) 96 meq/L 98-107 L (test code = 382) CO2 (BEAKER) (test 24 meq/L 22-29 code = 355) BLOOD UREA NITROGEN 9 mg/dL 7-21 (BEAKER) (test code = 354) CREATININE (BEAKER) 0.69 mg/dL 0.57-1.25 (test code = 358) GLUCOSE RANDOM 83 mg/dL 70-105 (BEAKER) (test code = 652) CALCIUM (BEAKER) 8.4 mg/dL 8.4-10.2 (test code = 697) EGFR (BEAKER) (test 109 mL/min/1.73 ESTIM ATED GFR IS code = 1092) sq m NOT ACCURATE CREATININE CLEARANCE IN PREDICTING GLOMERULAR FILTRATION RATE . ESTIMATED GFR I S NOT APPLICABLE FOR DIALYSIS PATIEN TS. Research Physiologist ID - PIAYA LCBC (Hemogram only)2019-11-02 06:18:00 Test Item Value Reference Range Interpretation Comments WBC (test code = 6690-2) 8.8 3.5- 10.5 K/L RBC (test code = 789-8) 3.56 4.63- 6.08 M/L L MCHC (test code = 786-4) 33.4 32.3- 36.5 GM/DL L Hematocrit (test code = 4544-3) 30.5 % 40.1-51 L MCV (test code = 787-2) 85.7 fL 79-92.2 MCH (test code = 785-6) 28.7 pg 25.7-32.2 RDW (test code = 788-0) 13.1 % 11.6-14.4 Platelets (test code = 777-3) 195 150- 450 K/CU MM MPV (test code = 25711-6) 8.9 fL 9.4-12.4 L nRBC (test code = 413) 0 0- 0 /100 WBC Lab Interpretation (test code = Abnormal 99674-6) [facility] (HEMOGRAM ONLY)2019-11-02 06:18:00 Test Item Value Reference Range Interpretation Comments WHITE BLOOD CELL COUNT (BEAKER) 8.8 K/ L 3.5-10.5 (test code = 775) RED BLOOD CELL COUNT (BEAKER) 3.56 M/ L 4.63-6.08 L (test code = 761) HEMOGLOBIN (BEAKER) (test code = 10.2 GM/DL 13.7-17.5 L 410) HEMATOCRIT (BEAKER) (test code = 30.5 % 40.1-51.0 L 411) MEAN CORPUSCULAR VOLUME (BEAKER) 85.7 fL 79.0-92.2 (test code = 753) MEAN CORPUSCULAR HEMOGLOBIN 28.7 pg 25.7-32.2 (BEAKER) (test code = 751) MEAN CORPUSCULAR HEMOGLOBIN CONC 33.4 GM/DL 32.3-36.5 (BEAKER) (test code = 752) RED CELL DISTRIBUTION WIDTH 13.1 % 11.6-14.4 (BEAKER) (test code = 412) PLATELET COUNT (BEAKER) (test 195 K/CU MM 150-450 code = 756) MEAN PLATELET VOLUME (BEAKER) 8.9 fL 9.4-12.4 L (test code = 754) NUCLEATED RED BLOOD CELLS 0 /100 WBC 0-0 (BEAKER) (test code = 413) Sputum Culture + Gram [id number] 00:55:00 Test Item Value Reference Range Interpretation Comments Result (test code = Oropharyngeal 6463-4) contamination, specimen rejected. Recollect requested. Gram Stain Result 1+ gram variable (test code = 1123) coccobacilli [facility]AM [id number] 00:55:00 Test Item Value Reference Range Interpretation Comments CULTURE (BEAKER) Oropharyngeal (test code = 1095) contamination, specimen rejected. Recollect requested. GRAM STAIN RESULT 4+ WBCs (BEAKER) (test code = 1123) GRAM STAIN RESULT >25 epithelial cells (BEAKER) (test code = 95742) GRAM STAIN RESULT 2+ gram positive cocci in (BEAKER) (test code chains and pairs = 15376) GRAM STAIN RESULT <1+ yeast (BEAKER) (test code = 504095) GRAM STAIN RESULT 1+ gram variable (BEAKER) (test code coccobacilli = 431511) [id number] 14:22:00 Test Item Value Reference Range Interpretation Comments Sodium (test code = 126 meq/L 136-145 L 2951-2) CHRISTINA (test code = CHRISTINA) Research Physiologist ID - SÁNCHEZ C Lab Interpretation (test Abnormal code = 24638-4) [facility] 14:22:00 Test Item Value Reference Range Interpretation Comments SODIUM (BEAKER) (test code = 381) 126 meq/L 136-145 L Research Physiologist ID - SÁNCHEZ CCT, [id number] 11:07:00FINAL REPORT CT of the abdomen and pelvis, with contrast Clinical History: Lung mass - staging Technique: CT of the abdomen and pelvis is performed with intravenous contrast administration. This exam was performed according to our departmental dose optimization program which includes automated exposure control, adjustment of the mA and/or kV according to patient's size and/or use of iterative reconstructive technique. Comparison Film: None Discussion: There is a large right-sided pleural effusion, partially imaged. A few well- circumscribed hypodensities in liver likely represent cysts, the largest measures 2 cm, although some are too small to be definitively characterized. No biliary ductal dilatation, and the gallbladder is normal. Spleen, pancreas, adrenal glands are normal. Kidneys demonstrate no hydronephrosis, mass or radiopaque stone. There is atrophied lower moiety of the left kidney. No evidence of bowel obstruction, or abnormal bowel wall thickening. There ismild colonic diverticulosis. Normal appendix. In the pelvis, the bladder, prostate and seminal vesicles are unremarkable. There are small fat-containing bilateral inguinal hernias. There is a aortoiliac stent graft. No ascites, or lymphadenopathy. Osseous structures demonstrate degenerative changes. There is a lytic lesion in the L2 vertebral body versus large Schmorl's node. Similar finding is seen in the T9 vertebral body, in conjunction with mild compression deformity. Status post ORIF of the left femur. Impression: Large right pleural effusion. Question lytic lesion versus large Schmorl's node in T9 and L2 vertebral bodies. Consider correlation with bone scan if clinically appropriate. Mild colonic diverticulosis. Signed: Shayna Jacobo MDReport Verified Date/Time: 11/01/2019 11:07:27 Reading Location: [facility] C013X Ortho Consult Reading Room CT abdomen/pelvis with IV [id number] 11:07:00Interface, External Ris In - 11/01/2019 11:[address] of the abdomen and pelvis, with contrast Clinical History: Lung mass - staging Technique: CT of the abdomen and pelvis is performed with intravenous contrast administration. This exam was performed according to our departmental dose optimization program which includes automated exposure control, adjustment of the mA and/or kV according to patient's size and/or use of iterative reconstructive technique. Comparison Film: None Discussion: There is a large right-sided pleural effusion, partially imaged. A fewwell-circumscribed hypodensities in liver likely represent cysts, the largest measures 2 cm, although some are too small to be definitively characterized. No biliary ductal dilatation, and the gallbladder is normal. Spleen, pancreas, adrenal glands are normal. Kidneys demonstrate no hydronephrosis, mass or radiopaque stone. There is atrophied lower moiety of the left kidney. No evidence of bowel obstruction, or abnormal bowel wall thickening. There is mild colonic diverticulosis. Normal appendix. In the pelvis, the bladder, prostate and seminal vesicles are unremarkable. There are small fat-containing bilateral inguinal hernias. There is a aortoiliac stent graft. No ascites, or lymphadenopathy. Osseous structures demonstrate degenerative changes. There is a lytic lesion in the L2 vertebral body versus large Schmorl's node. Similar finding is seen in the T9 vertebral body, in conjunction with mild compression deformity. Status post ORIF of the left femur. Impression: Large right pleural effusion. Question lytic lesion versus large Schmorl's node in T9 and L2 vertebral bodies. Consider correlation with bone scan if clinically appropriate. Mild colonic diverticulosis. Signed: Shayna Jacoboepromy Verified Date/Time: 11/01/2019 11:07:27 Reading Location: [facility] C0X Ortho Consult Reading [facility] T4 If Indicated 2019-11-01 07:17:00 Test Item Value Reference Range Interpretation Comments TSH (test code = 2.852 0.350- 4.940 uIU/mL 72846-3) CHRISTINA (test code = CHRISTINA) Research Physiologist ID - LESLI L Lab Interpretation (test Normal code = 20584-4) [facility] CenterCortisol2020-[facility] 07:17:00 Test Item Value Reference Range Interpretation Comments Cortisol, Total (test code 19.7 ug/dL 3.7-19.4 H = 2755) CHRISTINA (test code = CHRISTINA) Research Physiologist ID - PIAYA L Lab Interpretation (test Abnormal code = 59445-3) [facility]/FREE T4 IF [id number] 07:17:00 Test Item Value Reference Range Interpretation Comments THYROID STIMULATING HORMONE 2.852 uIU/mL 0.350-4.940 (BEAKER) (test code = 772) Research Physiologist ID - LESLI [id number] 07:17:00 Test Item Value Reference Range Interpretation Comments CORTISOL, TOTAL (BEAKER) (test 19.7 ug/dL 3.7-19.4 H code = 2755) Research Physiologist ID - LESLI LB-TYPE NATRIURETIC FACTOR (BNP)2019-11-01 07:01:00 Test Item Value Reference Range Interpretation Comments B-TYPE NATRIURETIC PEPTIDE (BEAKER) 30 pg/mL 0-100 (test code = 700) Research Physiologist ID - LESLI LUric [id number] 06:29:00 Test Item Value Reference Range Interpretation Comments Uric Acid (test code = 3.5 mg/dL 2.6-7.2 3084-1) CHRISTINA (test code = CHRISTINA) Research Physiologist ID - LESLI L Lab Interpretation (test Normal code = 39103-7) [facility] CenterURIC [id number] 06:29:00 Test Item Value Reference Range Interpretation Comments URIC ACID (BEAKER) (test code = 3.5 mg/dL 2.6-7.2 773) Research Physiologist ID - LESLI [id number] 06:29:00 Test Item Value Reference Range Interpretation Comments MAGNESIUM (BEAKER) (test code = 2.3 mg/dL 1.6-2.6 627) Research Physiologist ID - LESLI LBASIC METABOLIC [id number] 06:29:00 Test Item Value Reference Range Interpretation Comments SODIUM (BEAKER) 128 meq/L 136-145 L (test code = 381) POTASSIUM (BEAKER) 3.8 meq/L 3.5-5.1 (test code = 379) CHLORIDE (BEAKER) 92 meq/L 98-107 L (test code = 382) CO2 (BEAKER) (test 25 meq/L 22-29 code = 355) BLOOD UREA NITROGEN 10 mg/dL 7-21 (BEAKER) (test code = 354) CREATININE (BEAKER) 0.75 mg/dL 0.57-1.25 (test code = 358) GLUCOSE RANDOM 79 mg/dL 70-105 (BEAKER) (test code = 652) CALCIUM (BEAKER) 9.2 mg/dL 8.4-10.2 (test code = 697) EGFR (BEAKER) (test 99 mL/min/1.73 ESTIMA JANE GFR IS code = 1092) sq m NOT ACCURATE CREATININE CLEARANCE IN PREDICTING GLOMERULAR FILTRATION RATE . ESTIMATED GFR I S NOT APPLICABLE FOR DIALYSIS PATIEN TS. Research Physiologist ID - LESLI LCBC (HEMOGRAM ONLY)2019-11-01 06:05:00 Test Item Value Reference Range Interpretation Comments WHITE BLOOD CELL COUNT (BEAKER) 10.3 K/ L 3.5-10.5 (test code = 775) RED BLOOD CELL COUNT (BEAKER) 4.14 M/ L 4.63-6.08 L (test code = 761) HEMOGLOBIN (BEAKER) (test code = 12.0 GM/DL 13.7-17.5 L 410) HEMATOCRIT (BEAKER) (test code = 36.0 % 40.1-51.0 L 411) MEAN CORPUSCULAR VOLUME (BEAKER) 87.0 fL 79.0-92.2 (test code = 753) MEAN CORPUSCULAR HEMOGLOBIN 29.0 pg 25.7-32.2 (BEAKER) (test code = 751) MEAN CORPUSCULAR HEMOGLOBIN CONC 33.3 GM/DL 32.3-36.5 (BEAKER) (test code = 752) RED CELL DISTRIBUTION WIDTH 13.2 % 11.6-14.4 (BEAKER) (test code = 412) PLATELET COUNT (BEAKER) (test 219 K/CU MM 150-450 code = 756) MEAN PLATELET VOLUME (BEAKER) 9.0 fL 9.4-12.4 L (test code = 754) NUCLEATED RED BLOOD CELLS 0 /100 WBC 0-0 (BEAKER) (test code = 413) MR brain without IV [id number] 17:42:00Interface, External Ris In - 10/31/2019 5:47 PM CDTFINAL REPORT MRI Brain without contrast Clinical History: lung mass - staging Technique: MRI of the brain utilizing axial T2, FLAIR, GRE, DWI; sagittal T1-weighted images. Comparisons: None Findings: There is no evidence of acute infarct or hemorrhage. There is mild periventricular and subcortical white matter T2 hyperintensity, which is nonspecific but compatible with chronic microvascular ischemic change. There is generalized parenchymal volume loss without hydrocephalus, midline shift, or apparent mass effect. There are no extra-axial fluid collections. The craniocervical junction is preserved. There is loss of the rightintradural vertebral artery flow void. There is bilateral cataract surgery. IMPRESSION: No evidence for mass effect. However, given the clinical history, gadolinium enhanced imaging is recommended to exclude metastatic disease. No evidence of acute infarct, hemorrhage, or hydrocephalus. Loss of the right intradural vertebral artery flow void. Signed: Yesenia Waite MDReport Verified Date/Time: 10/31/2019 17:42:35 Reading Location: [facility] C013V Neuro Reading [facility]MR, [facility]RAIN, WITHOUT [id number] 17:42:00FINAL REPORT MRI Brain without contrast Clinical History: lung mass - stagingTechnique: MRI of the brain utilizing axial T2, FLAIR, GRE, DWI; sagittal T1-weighted images. Comparisons: None Findings: There is no evidence of acute infarct or hemorrhage. There is mild periventricular and subcortical white matter T2 hyperintensity, which is nonspecific but compatible with chronic m icrovascular ischemic change. There is generalized parenchymal volume loss without hydrocephalus, midline shift, or apparent mass effect. There are no extra-axial fluid collections. The craniocervical junction is preserved. There is loss of the right intradural vertebral artery flow void. There is bilateral cataract surgery. IMPRESSION: No evidence for mass effect. However, given the clinical history, gadolinium enhanced imaging is recommended to exclude metastatic disease. No evidence of acute infarct, hemorrhage, or hydrocephalus. Loss of the right intradural vertebral artery flow void. Signed: Yesenia Waite MDReport Verified Date/Time: 10/31/2019 17:42:35 Reading Location: [address] Neuro Reading Room Urinalysis with Microscopic If [id number] 16:50:00 Test Item Value Reference Range Interpretation Comments Color, UA (test code = Yellow 5778-6) Clarity, UA (test code = Clear 5767-9) Specific [place], UA (test 1.023 1.001-1.035 code = 5811-5) pH, UA (test code = 6.0 5.0-8.0 5803-2) Protein, UA (test code = 20 mg/dL Negative A 09206-6) Glucose, UA (test code = Negative Negative 365) Ketones, UA (test code = Negative Negative 2514-8) Bilirubin, UA (test code = Negative Negative 16634-4) Blood, UA (test code = Negative Negative 89732-2) Nitrite, UA (test code = Negative Negative 5802-4) Leukocytes, UA (test code Negative Negative = 5799-2) Urobilinogen, UA (test 2.0 mg/dL 0.2-1 H code = 25131-4) Specimen Source (test code = 2795) CHRISTINA (test code = CHRISTINA) Research Physiologist ID - [auto]Research Physiologist ID - tech Lab Interpretation (test Abnormal code = 86857-9) [facility] CenterUrinalysis Microscopic [id number] 16:50:00 Test Item Value Reference Range Interpretation Comments RBC, UA (test code = 0 /HPF 56331-9) WBC, UA (test code = 1 /HPF 5821-4) Squam Epithel, UA (test <1 /HPF code = 72897-9) CHRISTINA (test code = CHRISTINA) Research Physiologist ID - tech [facility] CenterURINALYSIS WITH MICROSCOPIC IF [id number] 16:50:00 Test Item Value Reference Range Interpretation Comments COLOR (BEAKER) (test code = 470) Yellow CLARITY (BEAKER) (test code = 469) Clear SPECIFIC GRAVITY UA (BEAKER) (test 1.023 1.001-1.035 code = 468) PH UA (BEAKER) (test code = 467) 6.0 5.0-8.0 PROTEIN UA (BEAKER) (test code = 20 mg/dL Negative A 464) GLUCOSE UA (BEAKER) (test code = Negative Negative 365) KETONES UA (BEAKER) (test code = Negative Negative 371) BILIRUBIN UA (BEAKER) (test code = Negative Negative 462) BLOOD UA (BEAKER) (test code = 461) Negative Negative NITRITE UA (BEAKER) (test code = Negative Negative 465) LEUKOCYTE ESTERASE UA (BEAKER) Negative Negative (test code = 466) UROBILINOGEN UA (BEAKER) (test code 2.0 mg/dL 0.2-1.0 H = 463) SOURCE(BEAKER) (test code = 2795) Research Physiologist ID - [auto]Research Physiologist ID - techURINALYSIS [id number] 16:50:00 Test Item Value Reference Range Interpretation Comments RBC UA (BEAKER) (test code = 519) 0 /HPF WBC UA (BEAKER) (test code = 520) 1 /HPF SQUAMOUS EPITHELIAL (BEAKER) (test < /HPF code = 516) Research Physiologist ID - techOsmolality, [id number] 16:42:00 Test Item Value Reference Range Interpretation Comments Osmolality, Ur (test code = 580 50-1,200 mOsm/kg mOsm/kg 2695-5) Lab Interpretation (test code Normal = 95195-7) [facility] CenterOSMOLALITY, [id number] 16:42:00 Test Item Value Reference Range Interpretation Comments OSMOLALITY URINE (BEAKER) (test 580 mOsm/kg 50-1,200 mOsm/kg code = 614) Sodium, random [id number] 16:36:00 Test Item Value Reference Range Interpretation Comments Sodium Urine (test 70 meq/L code = 2955-3) CHRISTINA (test code = Reference Range: No CHRISTINA) NormalsOperator ID - DB [facility]ODIUM, RANDOM [id number] 16:36:00 Test Item Value Reference Range Interpretation Comments SODIUM URINE (BEAKER) (test code = 70 meq/L 243) Reference Range: No NormalsOperator ID - DBOsmolality, [id number] 07:15:00 Test Item Value Reference Range Interpretation Comments Osmolality Serum (test code = 258 275- 295 mOsm/kg L 2692-2) Lab Interpretation (test code = Abnormal 72910-7) [facility] CenterOSMOLALITY, [id number] 07:15:00 Test Item Value Reference Range Interpretation Comments OSMOLALITY, SERUM (BEAKER) (test 258 mOsm/kg 275-295 L code = 615) [id number] 06:50:00 Test Item Value Reference Range Interpretation Comments MAGNESIUM (BEAKER) 2.0 mg/dL 1.6-2.6 Specimen slightly (test code = 627) hemolyzed Research Physiologist ID - CARLYN MBASIC METABOLIC [id number] 06:50:00 Test Item Value Reference Range Interpretation Comments SODIUM (BEAKER) 126 meq/L 136-145 L (test code = 381) POTASSIUM (BEAKER) 4.1 meq/L 3.5-5.1 Specimen slightly (test code = 379) hemolyzed CHLORIDE (BEAKER) 92 meq/L 98-107 L (test code = 382) CO2 (BEAKER) (test 24 meq/L 22-29 code = 355) BLOOD UREA NITROGEN 9 mg/dL 7-21 (BEAKER) (test code = 354) CREATININE (BEAKER) 0.77 mg/dL 0.57-1.25 Specimen slightly (test code = 358) hemolyzed GLUCOSE RANDOM 92 mg/dL 70-105 (BEAKER) (test code = 652) CALCIUM (BEAKER) 8.7 mg/dL 8.4-10.2 (test code = 697) EGFR (JEROME) (test 96 mL/min/1.73 ESTIMA JANE GFR IS code = 1092) sq m NOT ACCURATE CREATININE CLEARANCE IN PREDICTING GLOMERULAR FILTRATION RATE . ESTIMATED GFR I S NOT APPLICABLE FOR DIALYSIS PATIEN VERO. Research Physiologist ID - CARLYN MSARS-CoV2/RT-PCR (Symptomatic ONLY)2019-10-31 06:39:00 Test Item Value Reference Range Interpretation Comments SARS-COV2/RT-PCR Not Detected Not Detected, (test code = Negative 47660-4) SARS-COV-2 [facility] PERFORMING LAB (test code = 33342-2) CHRISTINA (test code = Negative results do not CHRISTINA) preclude SARS-CoV-2 infection and should not be used as [...] of the Act. Fact Sheet for Healthcare Providers:https://www.[employer]Documents/Xper t%20Xpress%20SARS%20CoV- 2/Fact%20Sheets/895-3032 %62ZATG-JYC-9%20HEALTHCA RE%20PROVIDERS%20FACT%20 SHEET.pdf Fact Sheet for Healthcare Patients:https://www.[employer]Documents/Xpert %20Xpress%20SARS%20CoV-2 /Fact%20Sheets/521-3801% 83GHCA-IJN-3%20PATIENT%2 0FACT%20SHEET.pdf Performing Laboratory:[address]OV2/RT-PCR ([facility])2019-10-31 06:39:00 Test Item Value Reference Range Interpretation Comments SARS-COV2/RT-PCR (test Not Detected Not Detected, Negative code = 0069975) SARS-COV-2 PERFORMING LAB [facility] (test code = 0535393) Negative results do not preclude SARS-CoV-2 infection and should not be used as the sole basis for patient management decisions. Negative results must be combined with clinical observations, patient history, and epidemiological information. A false negative result may occur if a specimen is improperly collected, transported or handled.The limit of detection for this assay is 250 copies/mL.This SARS CoV-2 test is a rapid, real-time RT-PCR test intended for the qualitative detection of nucleic acid from SARS-CoV-2 in a nasopharyngeal swab specimen collected from individuals suspected of COVID-19 by their healthcare provider.This test has not been Food and Drug [...] is revoked under Section 564(g) of the Act.Fact Sheet for Healthcare Pro viders:https://www.Talkable/Documents/Xpert%20Xpress%20SARS%20CoV-2/Fact%20Sh eets/302-2752%54OSVT-IEC-0%20HEALTHCARE%20PROVIDERS%20FACT%20SHEET.pdfFact Sheet for Healthcare Patients:https://www.G[employer]up[employer]Documents/Xpert%20Xpress%20SARS%20CoV-2/Fact%20Sheets/3023801%20SARS-COV -2%20PATIENT%20FACT%20SHEET.pdfPerforming Laboratory:[facility], [place] [address]KFL W/PLT COUNT & AUTO DIFFERENTIAL 2019-10-31 06:18:00 Test Item Value Reference Range Interpretation Comments WHITE BLOOD CELL COUNT (BEAKER) 11.9 K/ L 3.5-10.5 H (test code = 775) RED BLOOD CELL COUNT (BEAKER) 3.68 M/ L 4.63-6.08 L (test code = 761) HEMOGLOBIN (BEAKER) (test code = 10.6 GM/DL 13.7-17.5 L 410) HEMATOCRIT (BEAKER) (test code = 31.6 % 40.1-51.0 L 411) MEAN CORPUSCULAR VOLUME (BEAKER) 85.9 fL 79.0-92.2 (test code = 753) MEAN CORPUSCULAR HEMOGLOBIN 28.8 pg 25.7-32.2 (BEAKER) (test code = 751) MEAN CORPUSCULAR HEMOGLOBIN CONC 33.5 GM/DL 32.3-36.5 (BEAKER) (test code = 752) RED CELL DISTRIBUTION WIDTH 13.1 % 11.6-14.4 (BEAKER) (test code = 412) PLATELET COUNT (BEAKER) (test 202 K/CU MM 150-450 code = 756) MEAN PLATELET VOLUME (BEAKER) 9.3 fL 9.4-12.4 L (test code = 754) NUCLEATED RED BLOOD CELLS 0 /100 WBC 0-0 (BEAKER) (test code = 413) NEUTROPHILS RELATIVE PERCENT 77 % (BEAKER) (test code = 429) LYMPHOCYTES RELATIVE PERCENT 13 % (BEAKER) (test code = 430) MONOCYTES RELATIVE PERCENT 9 % (BEAKER) (test code = 431) EOSINOPHILS RELATIVE PERCENT 0 % (BEAKER) (test code = 432) BASOPHILS RELATIVE PERCENT 0 % (BEAKER) (test code = 437) NEUTROPHILS ABSOLUTE COUNT 9.18 K/ L 1.78-5.38 H (BEAKER) (test code = 670) LYMPHOCYTES ABSOLUTE COUNT 1.49 K/ L 1.32-3.57 (BEAKER) (test code = 414) MONOCYTES ABSOLUTE COUNT (BEAKER) 1.06 K/ L 0.30-0.82 H (test code = 415) EOSINOPHILS ABSOLUTE COUNT 0.05 K/ L 0.04-0.54 (BEAKER) (test code = 416) BASOPHILS ABSOLUTE COUNT (BEAKER) 0.03 K/ L 0.01-0.08 (test code = 417) IMMATURE GRANULOCYTES-RELATIVE 1 % 0-1 PERCENT (BEAKER) (test code = 2801) PROTHROMBIN [id number] 06:05:00 Test Item Value Reference Range Interpretation Comments PROTIME (BEAKER) (test code = 14.6 seconds 11.9-14.2 H 759) INR (BEAKER) (test code = 370) 1.2 <=5.9 Effective 10/08/2018: PT Reference Range ChangeNew: 11.9-14.2 Previous: 11.7- 14.7RECOMMENDED COUMADIN/WARFARIN INR THERAPY RANGESSTANDARD DOSE: 2.0-3.0 Includes: PROPHYLAXIS for venous thrombosis, systemic embolization; TREATMENT for venous thrombosis and/or pulmonary embolus.HIGH RISK: Target INR is2.5-3.5 for patients wiht mechanical heart valves.CBC (HEMOGRAM ONLY)2019-10-31 05:56:00 Test Item Value Reference Range Interpretation Comments WHITE BLOOD CELL COUNT (BEAKER) 11.9 K/ L 3.5-10.5 H (test code = 775) RED BLOOD CELL COUNT (BEAKER) 3.68 M/ L 4.63-6.08 L (test code = 761) HEMOGLOBIN (BEAKER) (test code = 10.6 GM/DL 13.7-17.5 L 410) HEMATOCRIT (BEAKER) (test code = 31.6 % 40.1-51.0 L 411) MEAN CORPUSCULAR VOLUME (BEAKER) 85.9 fL 79.0-92.2 (test code = 753) MEAN CORPUSCULAR HEMOGLOBIN 28.8 pg 25.7-32.2 (BEAKER) (test code = 751) MEAN CORPUSCULAR HEMOGLOBIN CONC 33.5 GM/DL 32.3-36.5 (BEAKER) (test code = 752) RED CELL DISTRIBUTION WIDTH 13.1 % 11.6-14.4 (BEAKER) (test code = 412) PLATELET COUNT (BEAKER) (test 202 K/CU MM 150-450 code = 756) MEAN PLATELET VOLUME (BEAKER) 9.3 fL 9.4-12.4 L (test code = 754) NUCLEATED RED BLOOD CELLS 0 /100 WBC 0-0 (BEAKER) (test code = 413) ECG 12 [id number] 16:05:17 Test Item Value Reference Range Interpretation Comments Ventricular rate (test 56 code = 253) Atrial rate (test code 56 = 255) OH interval (test code 184 = 266) QRSD interval (test 162 code = 260) QT interval (test code 474 = 264) QTC interval (test code 457 = 265) P axis 1 (test code = 37 267) QRS axis 1 (test code = 269 268) T wave axis (test code 59 = 270) EKG impression (test Sinus code = 273) bradycardia-Right bundle branch block-Abnormal ECG-In automated comparison with ECG of 19-NOV-2017 13:42,-T wave inversion now evident in Anterior leads- Star [facility]
[2019-12-03 16:40] LABS: Absolute Lymphocytes (CBC) 1.2 K/uL (0.7-4.9); Basophils % 0.4 % (0-1.3); Hematocrit 28.9 % (39.6-49.0); Lymphocytes % 14.7 % (15.3-44.8); MPV 7.3 fL (7.6-11.3); RBC Red Blood Cell Count 3.48 M/uL (4.33-5.43)
[2019-12-03 16:42] LABS: Protime INR 1.31
[2019-12-03 17:04] LABS: ALT/SGPT 13 U/L (12-78); AST/SGOT 20 U/L (15-37); Albumin 2.9 g/dL (3.4-5.0); Alkaline Phosphatase 146 U/L (45-117); BUN Blood Urea Nitrogen 10 mg/dL (7-18); Bicarbonate 28 mmol/L (21-32); Bilirubin Direct 0.3 mg/dL (0-0.2); Bilirubin Total 1.1 mg/dL (0.2-1.0); Glucose Level 89 mg/dL (74-106); Magnesium 2.2 mg/dL (1.8-2.4); NT PRO-BNP 273 pg/mL (<450); Potassium 3.6 mmol/L (3.5-5.1); Protein, Total 7.5 g/dL (6.4-8.2); Sodium Level 132 mmol/L (136-145); Troponin (Emerg Dept Use Only) < 0.02 ng/mL (0.0-0.045)
--- NOTE | 2019-12-03 17:47 | RAD REPORT ---
EXAM DESCRIPTION: CT - Chest For Pe Angio - 12/03/2019 5:28 pm CLINICAL HISTORY: sob COMPARISON: November 26, 2019 TECHNIQUE: Dynamically enhanced axial 3 mm thick images of the chest were obtained during administra tion of <100> mL Isovue 370 IV contrast. Coronal and oblique reconstruction images were generated and reviewed. Exam utilizes a protocol for optimal evaluation of pulmonary arterial tree. Maximum intensity projections 3D imaging was utilized All CT scans are performed using dose optimization technique as appropriate and may include automated exposure control or mA/KV adjustment according to patient size. FINDINGS: A pulmonary embolus is not seen. A thoracic aortic aneurysm is not noted. A pleural effusion is not seen. A pericardial effusion is not seen. 7.3 centimeter right upper lobe mass extends into the right hilum and mediastinum is unchanged. . The mass occludes right upper lobe bronchus. Large loculated right pleural effusion. Small left pleural effusion Pathologic fracture involves a lower thoracic vertebral body. There is moderate compression. IMPRESSION: Negative for a pulmonary embolism. Large right upper lobe mass Large loculated right pleural effusion
--- NOTE | 2019-12-03 17:49 | RAD REPORT ---
EXAM DESCRIPTION: Say Single View12/03/2019 5:11 pm CLINICAL HISTORY: sob COMPARISON: November 25, 2019 FINDINGS: No significant change in a large loculated right pleural effusion Right upper lobe mass is unchanged Left lung appears clear Small left pleural
--- NOTE | 2019-12-03 17:59 | ER ---
Nurse's Notes [facility] Name: Tylor Ruiz Age: 84 yrs Sex: Male : 1935 Arrival Date: 12/03/2019 Time: 15:26 Bed 16 Private MD: Diagnosis: Cough;Malignant neoplasm of unspecified part of bronchus or lung Presentation: 12/02 15:33 Chief complaint: Patient states: shortness of breath since this morning, reports pain em on the left side of chest, also reports hx of eva. lung CA, reports cough, white sputum, nausea. Coronavirus screen: Patient reports a cough. Patient reports shortness of breath or difficulty breathing. Patient denies measured and/or subjective temperature greater than 100.4F prior to today's visit. Patient denies travel on a cruise ship or to a country the [facility] currently lists as an affected area. Patient denies contact with known and/or suspected case of COVID-19. Ebola Screen: Patient negative for fever greater than or equal to 101.5 degrees Fahrenheit, and additional compatible Ebola Virus Disease symptoms Patient denies exposure to infectious person. Patient denies travel to an Ebola-affected area in the 21 days before illness onset. No symptoms or risks identified at this time. Initial Sepsis Screen: Does the patient meet any 2 criteria? No. Patient's initial sepsis screen is negative. Does the patient have a suspected source of infection? No. Patient's initial sepsis screen is negative. Risk Assessment: Do you want to hurt yourself or someone else? Patient reports no desire to harm self or others. Onset of symptoms was December 03, 2019. 15:33 Method Of Arrival: Wheelchair em 15:33 Acuity: STACEY 3 em Triage Assessment: 17:55 Respiratory: the patient has mild shortness of breath. 18:26 Respiratory: Reports shortness of breath. Historical: - Allergies: 15:38 No Known Allergies; em - PMHx: 15:38 eva. lung CA; em - PSHx: 15:38 None; em - Immunization history:: Adult Immunizations up to date. - Social history:: Smoking status: Patient denies any tobacco usage or history of. Screenin:37 Abuse screen: Denies threats or abuse. Nutritional screening: No deficits noted. Tuberculosis screening: No symptoms or risk factors identified. Fall Risk None identified. Assessment: 16:33 General: Appears uncomfortable, Behavior is calm, cooperative, appropriate for age. ah Pain: Denies pain. Neuro: Level of Consciousness is awake, alert, obeys commands, Oriented to person, place, time, situation, Appropriate for age. Cardiovascular: Heart tones S1 S2 present Capillary refill < 3 seconds Patient's skin is warm and dry. Rhythm is sinus rhythm. Respiratory: Airway is patent Respiratory effort is even, unlabored, shallow, Respiratory pattern is regular, symmetrical, Sputum is thick, clear Breath sounds are diminished bilaterally. Onset: The symptoms/episode began/occurred today, Denies pain with respiration. GI: Bowel sounds present X 4 quads. Derm: Skin is intact, is healthy with good turgor, Skin is dry. 17:30 Reassessment: Patient and/or family updated on plan of care and expected duration. Pain ah level reassessed. Patient is alert, oriented x 3, equal unlabored respirations, skin warm/dry/pink. awaiting results. Vital Signs: 15:33 BP 156 / 78; Pulse 83; Resp 18; Temp 98.5(O); Pulse Ox 96% on R/A; Weight 72.57 kg; em Height 5 ft. 7 in. (170.18 cm); Pain 7/10; 16:00 BP 142 / 73; Pulse 75; Resp 18; Pulse Ox 96% ; ah 16:30 BP 139 / 68; Pulse 74; Resp 15; Pulse Ox 97% ; ah 17:00 BP 142 / 87; Pulse 81; Resp 22; Pulse Ox 99% ; ah 17:36 BP 152 / 65; Pulse 69; Resp 20; Pulse Ox 99% ; ah 15:33 Body Mass Index 25.06 (72.57 kg, 170.18 cm) em ED Course: 15:26 Patient arrived in ED. mr 15:30 No provider procedures requiring assistance completed. 15:30 Initial lab(s) drawn, by me, sent to lab. Inserted saline lock: 20 gauge in left ah antecubital area, using aseptic technique. 15:38 Triage completed. em 15:38 Arm band placed on. 15:43 Bentley Hadley PA is PHCP. [facility] 15:43 Ramos Lemus MD is Attending Physician. [facility] 15:59 Desi Nuon, RN is Primary Nurse. 16:38 Patient has correct armband on for positive identification. Placed in gown. Bed in low ah position. Call light in reach. Side rails up X 1. patient monitor on. Pulse ox on. NIBP on. 17:11 XRAY Chest (1 view) In Process Unspecified. EDMS 17:29 CT Chest For PE Angio In Process Unspecified. EDMS 18:26 IV discontinued, intact, bleeding controlled, No redness/swelling at site. Pressure dressing applied. Administered Medications: No medications were administered Outcome: 17:59 Discharge ordered by . erasmo 18:25 Discharged to home ambulatory. 18:25 Condition: good 18:25 Discharge instructions given to patient, Instructed on discharge instructions, follow up and referral plans. Demonstrated understanding of instructions, follow-up care. 18:26 Patient left the ED. Signatures: Dispatcher [employer] [facility] Bentley Hadley PA PA jmm Rivera, Mary Olaf Anand RN RN em Harris, Amy, RN RN Corrections: (The following items were deleted from the chart) 18:26 18:25 No provider procedures requiring assistance completed. [facility]
--- NOTE | 2019-12-03 18:00 | EDPHYS ---
Physician Documentation [facility] Name: Tylor Ruiz Age: 84 yrs Sex: Male : 1935 Arrival Date: 12/03/2019 Time: 15:26 Bed 16 Private MD: ED Physician Ramos Lemus HPI: 12/02 16:26 This 84 yrs old Male presents to ER via Wheelchair with complaints of Cancer jmm pt, Breathing Difficulty, Back Pain. 16:26 The patient has shortness of breath at rest. Onset: The symptoms/episode began/occurred jmm gradually. Duration: The symptoms are continuous. The patient's shortness of breath is aggravated by nothing, is alleviated by nothing. Associated signs and symptoms: Pertinent positives: chest pain. This is an 84 year old male with a history of lung cancer that presents to the ED. 16:26 This is an 84 year old male whom has been recently diagnosed with lung cancer that jmm presents to the ED with complaints of shortness of breath beginning today. Patient has had ongoing chest pain with cough. Denies fever. Denies vomiting. . Historical: - Allergies: 15:38 No Known Allergies; em - PMHx: 15:38 eva. lung CA; em - PSHx: 15:38 None; em - Immunization history:: Adult Immunizations up to date. - Social history:: Smoking status: Patient denies any tobacco usage or history of. ROS: 16:26 Constitutional: Negative for fever, chills, and weight loss. jmm 16:26 Cardiovascular: Positive for chest pain, with cough. 16:26 Respiratory: Positive for cough, shortness of breath. 16:26 All other systems are negative. Exam: 16:26 Constitutional: This is a well developed, well nourished patient who is awake, alert, jmm and in no acute distress. Head/Face: atraumatic. Eyes: EOMI, no conjunctival erythema appreciated ENT: Moist Mucus Membranes Neck: Trachea midline, Supple Chest/axilla: Normal chest wall appearance and motion. Cardiovascular: Regular rate and rhythm. No edema appreciated Respiratory: Normal respirations, no respiratory distress appreciated Abdomen/GI: Non distended, soft Back: Normal ROM Skin: General appearance color normal MS/ Extremity: Moves all extremities, no obvious deformities appreciated, no edema noted to the lower extremities Neuro: Awake and alert, normal gait Psych: Behavior is normal, Mood is normal, Patient is cooperative and pleasant Vital Signs: 15:33 BP 156 / 78; Pulse 83; Resp 18; Temp 98.5(O); Pulse Ox 96% on R/A; Weight 72.57 kg; em Height 5 ft. 7 in. (170.18 cm); Pain 7/10; 16:00 BP 142 / 73; Pulse 75; Resp 18; Pulse Ox 96% ; ah 16:30 BP 139 / 68; Pulse 74; Resp 15; Pulse Ox 97% ; ah 17:00 BP 142 / 87; Pulse 81; Resp 22; Pulse Ox 99% ; ah 17:36 BP 152 / 65; Pulse 69; Resp 20; Pulse Ox 99% ; ah 15:33 Body Mass Index 25.06 (72.57 kg, 170.18 cm) em MDM: 15:45 Patient medically screened. [facility] 17:53 Data reviewed: vital signs, nurses notes. Counseling: I had a detailed discussion with erasmo the patient and/or guardian regarding: the historical points, exam findings, and any diagnostic results supporting the discharge/admit diagnosis, lab results, radiology results, the need for outpatient follow up, to return to the emergency department if symptoms worsen or persist or if there are any questions or concerns that arise at home. ED course: Patient is alert and non toxic in appearance in the ED. No signs of resp distress. CTA is negative for PE. Patient advised to follow up with pcp. Patient is otherwise given strict return precautions. Patient understood and agrees with the plan of care. . 12/02 15:58 Order name: Basic Metabolic Panel; Complete Time: 17:06 [facility] 12/02 15:58 Order name: CBC with Diff; Complete Time: 17:30 [facility] 12/02 15:58 Order name: LFT's; Complete Time: 17:06 [facility] 12/02 15:58 Order name: Magnesium; Complete Time: 17:06 [facility] 12/02 15:58 Order name: NT PRO-BNP; Complete Time: 17:06 [facility] 12/02 15:58 Order name: PT-INR; Complete Time: 17:06 [facility] 12/02 15:58 Order name: Troponin (emerg Dept Use Only); Complete Time: 17:06 [facility] 12/02 15:58 Order name: XRAY Chest (1 view) [facility] 12/02 15:58 Order name: EKG; Complete Time: 15:59 [facility] 12/02 15:58 Order name: Cardiac monitoring; Complete Time: 16:01 [facility] 12/02 15:58 Order name: EKG - Nurse/Tech; Complete Time: 16:59 [facility] 12/02 15:58 Order name: IV Saline Lock; Complete Time: 16:13 [facility] 12/02 15:58 Order name: Labs collected and sent; Complete Time: 16:13 [facility] 12/02 17:07 Order name: CT Chest For PE Angio [facility] 12/02 15:58 Order name: O2 Per Protocol; Complete Time: 16:01 [facility] 12/02 15:58 Order name: O2 Sat Monitoring; Complete Time: 16:01 [facility] Administered Medications: No medications were administered Disposition: 12/03 07:27 Co-signature as Attending Physician, Ramos Lemus MD I agree with the assessment and kdr plan of care. Disposition: 12/03/19 17:59 Discharged to Home. Impression: Cough, Malignant neoplasm of unspecified part of bronchus or lung. - Condition is Stable. - Discharge Instructions: Lung Cancer, Cough, Adult, [id number]. - Medication Reconciliation Form, Thank You Letter, Antibiotic Education, Prescription Opioid Use form. - Follow up: Private Physician; When: 2 - 3 days; Reason: Recheck today's complaints, Continuance of care, Re-evaluation by your physician. Signatures: Dispatcher [employer] Ramos Camara MD MD kdr Mickail, Joel, PA PA [facility] Olaf Anand, Desi Russo RN, RN RN Corrections: (The following items were deleted from the chart) 12/02 18:26 17:59 12/03/2019 17:59 Discharged to Home. Impression: Cough; Malignant neoplasm of ah unspecified part of bronchus or lung. Condition is Stable. Forms are Medication Reconciliation Form, Thank You Letter, Antibiotic Education, Prescription Opioid Use. Follow up: Private Physician; When: 2 - 3 days; Reason: Recheck today's complaints, Continuance of care, Re-evaluation by your physician. [facility]
[2019-12-03 18:32] VITALS: TEMP 98.5
[2019-12-03 18:36] VITALS: O2SAT 99
[2019-12-03 18:37] VITALS: BP 152/65
--- NOTE | 2019-12-04 15:26 | EKG ---
Test Date: 2019-12-03 Test Time: 16:28:51 Medical Housekeeper: ALBER MEASUREMENT RESULTS: Intervals: Rate: 74 TN: 178 QRSD: 152 QT: 436 QTc: 483 Morton: P: 66 TN: 178 QRS: -74 T: 61 INTERPRETIVE STATEMENTS: Normal sinus rhythm Left axis deviation Right bundle branch block Septal infarct, age undetermined Abnormal ECG No previous ECG available for comparison Electronically Signed On 12-04-19 15:24:16 CDT by Tyler Gomez
== END 2019-12-03 18:26 | disposition home or self-care (01) ==
LOC: ER 15:21
DX: C34.90 Malignant neoplasm of unspecified part of unspecified bronchus or lung (principal)
CPT/HCPCS: 93005; 85025; 80048; 36415; 83735; 85610; 80076; 84484; 83880; 71275; 71045; 99284; Q9967